=== PATIENT | female | born 1970 | race Caucasian/White ===

== ENCOUNTER 2021-12-22 15:23 | Inpatient (IN) | payer OTHER ==
--- OUTSIDE RECORDS SUMMARY | 2021-12-22 15:27 | XMS REPORT | Continuity of Care Document ---
:1970 Author Organization [facility] t Address [address] [place] [address] Care Team Providers Name Role Phone Bal Primary Care Physician MYRA Attending Clinician Unavailable Jonathan CHANDRA Attending Clinician Unavailable ADAMS RENTERIA Attending Clinician Unavailable [email or web address] Attending Clinician Unavailable Jazmine Thao Attending Clinician [phone] [email or web address] Admitting Clinician Unavailable Payers Payer Name Policy Type Policy Number Effective Date Expiration Date S ourbeena [employer] CHOICE POS [id number] 2000 00:00:00 II [employer]ET[employer] - CHOICE [id number] 2000 00:00:00 (POS II) GAMUNEX COPAY [id number] PROGRAM Problems Condition Condition Condition Status Onset Resolution Last Treating Co mments Source Name Details Category Date Date Treatment Clinician Date 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 Family History Family Member Diagnosis Comments Start Date Stop Date Source Natural brother Rheumatologic disease [facility] Natural brother No Known Problems [facility] Natural father Diabetes type II Meth [facility] Natural father Hyperlipidemia [facility] father Hypertension [facility] Natural mother Hypothyroidism [facility] mother Polymyositis [facility] Social History Social Habit Start Date Stop Date Quantity Comments Source Exposure to Not sure [facility] SARS-CoV-2 (event) Alcohol intake 2017-01-23 2017-01-23 Current drinker [facility] 00:00:00 00:00:00 [facility] Hospital (finding) Tobacco use and 2017-01-23 2017-01-23 Never used [facility] 00:[facility]00 Hospital Alcohol Comment 2016-10-21 2016-10-21 [facility] 00:[facility]:00 [facility]00 Hospital Sex Assigned At [birth year] [facility] 00:00:00 00:00:00 Smoking Status Start Date Stop Date Source Tobacco smoking consumption unknown [facility] smoker [facility] Medications Ordered Filled Start Stop Current Ordering Indication Dosage Frequency Signature Comments Components Source Medication Medication Date Date Medication? Clinician (SIG) Name Name escitalopra 2020- Yes 10mg QD Take 10 mg UT m (Lexapro) 7-25 by mouth 1 He alth 10 MG 00:00: (one) time tablet 00 each day. escitalopra 2020-0 Yes 10mg QD Take 10 mg UT m (Lexapro) 7-25 by mouth 1 He alth 10 MG 00:00: (one) time tablet 00 each day. escitalopra 2021-0 Yes 10mg QD Take 10 mg UT m (Lexapro) 7-25 by mouth 1 He alth 10 MG 00:00: (one) time tablet 00 each day. omeprazole 2020-0 Yes 20mg Q.5D Take 20 mg U T (PriLOSEC) 6-04 by mouth [address] [facility] [address] 00:00: (two) capsule 00 times a day. omeprazole 2020-0 Yes 20mg Q.5D Take 20 mg U T (PriLOSEC) 6-04 by mouth 2 [facility] l[facility] [address] 00:00: (two) capsule 00 times a day. omeprazole 2020-0 Yes 20mg Q.5D Take 20 mg U T (PriLOSEC) 6-04 by mouth [address] [facility]a l[facility] [address] 00:00: (two) capsule 00 times a day. EPINEPHrine 2020-0 Yes UT (Epipen) 6-03 Health 0.3 00:00: MG/0.3ML 00 injection syringe EPINEPHrine 2020-0 Yes UT (Epipen) 6-03 Health 0.3 00:00: MG/0.3ML 00 injection syringe EPINEPHrine 2020-0 Yes UT (Epipen) 6-03 Health 0.3 00:00: MG/0.3ML 00 injection syringe atenolol 2020-0 Yes 25mg QD Take 25 mg UT (Tenormin) 5-27 by mouth 1 Hea lth 25 MG 00:00: (one) time tablet 00 each day. atenolol 2020-0 Yes 25mg QD Take 25 mg UT (Tenormin) 5-27 by mouth 1 Hea lth 25 MG 00:00: (one) time tablet 00 each day. atenolol 2020-0 Yes 25mg QD Take 25 mg UT (Tenormin) 5-27 by mouth 1 Hea lth 25 MG 00:00: (one) time tablet 00 each day. ivermectin 2020-0 Yes TAKE 1 UT (Stromectol 3-12 TABLET BY [facility] ) 3 MG 00:00: MOUTH tablet 00 TWICE A WEEK FOR 8 WEEKS ivermectin 2020-0 Yes TAKE 1 UT (Stromectol 3-12 TABLET BY [facility] ) 3 MG 00:00: MOUTH tablet 00 TWICE A WEEK FOR 8 WEEKS ivermectin 2021-0 Yes TAKE 1 UT (Stromectol 3-12 TABLET BY [facility] ) 3 MG 00:00: MOUTH tablet 00 TWICE A WEEK FOR 8 WEEKS DEXILANT 60 2016-08 Yes TAKE ONE Me [facility] mg capsule 2-[address] 00:00: MOUTH Hospita 00 EVERY DAY l b complex Yes 1{tbl} QD Take 1 Meth hank vitamins (B 6-[address] COMPLEX 1) 16:29: mouth Hospit a tablet 48 daily. l folic acid Yes 1mg QD Take 1 mg Me thodi (FOLVITE) [address] MG tablet 16:29: daily. Hospit a 48 l omega Yes Take by Methodi 3-dha-epa-f 6-[address] hallie oil 16:29: Hospita (FISH OIL) 48 l 1,000 mg (120 mg-180 mg) capsule vitamin E Yes 1000U QD Take 1,000 M ethodi [address] capsule 16:29: mouth Hospita 48 daily. l melatonin 1 Yes Take by Met hodi mg tablet 6-[address] 16:29: Hospita 48 l ascorbic Yes 1000mg QD Take 1,000 M ethodi acid, 6-[address] vitamin C, 16:29: mouth Hospit a (vitamin C) 48 daily. l 1000 MG tablet TURMERIC Yes Methodi (CURCUMIN 6 st MIS) 16:29: Hospita 48 l cefTRIAXone Yes 2g QD Infuse 2 g Methodi 2 gram [address] recon soln 16:29: venous Hospi ta 48 catheter l daily. azithromyci Yes 500mg Q24H Infuse 500 Methodi n 6-[address] (ZITHROMAX) 16:29: venous Hosp pippa 500 mg/250 48 catheter l mL NS daily. M W F intravenou sly IMMUN GLOB Yes .5g/kg Infuse 0.5 Methodi G,IGG,/GLY/ 6-02 g/kg into st IGA OV50 16:29: a venous Hospi ta (IMMUNE 48 catheter l GLOBULIN, once. GAMUNEX-C,) Every 2 10 % weeks solution coenzyme 2017-0 Yes 100mg QD Take 100 Meth hank Q10 100 mg 6-[address] capsule 16:29: mouth Hospita 48 daily. l RESVERATROL 2017-0 Yes 1200mg Take 1,200 Methodi ORAL 6-[address] 16:29: mouth. Hospita 48 l doxycycline 2016-0 Yes 100mg Q.5D Take 100 M ethodi (VIBRAMYCIN 5-[address] ) 100 MG 00:00: mouth 2 Hospit a capsule 00 (two) l times a day. escitalopra Yes 20mg QD Take 20 mg Methodi m (LEXAPRO) 4-[address] 20 MG 00:00: once Hospita tablet 00 daily. l Immunizations Ordered Immunization Filled Immunization Date Status Commen ts Source Name Name Pneumococcal 2016-06-26 Completed [facility] Con[facility] 13-Valent 00:00:00 Hospi yessenia Vital Signs Vital Name Observation Time Observation Value Comments Source Systolic blood 2021-03-27 14:50:00 133 mm[Hg] [facility] pressure Diastolic blood 2021-03-27 14:50:00 87 mm[Hg] [facility] alth pressure Heart rate 2021-03-27 14:50:00 85 /min [facility]alt [facility] Body temperature 2021-03-27 14:50:00 35.72 Hiral [facility] Body weight 2021-03-27 14:50:00 65.772 kg approx 145 . Pt is [facility] in a wheelchair Procedures This patient has no known procedures. Plan of Care Planned Activity Planned Date Details Comments Source Future Scheduled Test COVID-19 VACCINE (1) [facility] [code = COVID-19 VACCINE (1)] Future Scheduled Test BREAST CANCER SCREENING [facility] [code = BREAST CANCER SCREENING] Future Scheduled Test COLONOSCOPY SCREENING [facility] [code = COLONOSCOPY SCREENING] Future Scheduled Test SHINGLES VACCINES (#1) [facility] [code = SHINGLES VACCINES (#1)] Future Scheduled Test Screening for malignant [facility] neoplasm of cervix (procedure) [code = 530859942] Future Scheduled Test INFLUENZA VACCINE [code [facility] = INFLUENZA VACCINE] Encounters Start End Encounter Admission Attending Care Care Encounter Source Date/Time Date/Time Type Type Clinicians Facility Department ID 2021-10-01 [facility] [id number] [place] 16:[facility]:28 [facility] 2021-03-25 [facility] [id number] [place] 13:38:33 [facility] 2021-09-30 2021-09-30 Nurse Omer Castillo [id number] [place] 00:00:00 00:00:00 Triage Omer Castillo [id number] [facility] MEDICAL [id number] TRACY [id number] 2021-09-24 2021-09-24 Outpatient MYRA, [facility]LA[facility] [id number] [facility] 09:41:00 12:55:00 MAYLIN 2021-09-04 2021-09-04 Office Gigi Renteria [id number] [place] 11:00:00 11:40:44 Visit Maylin Ochoa [id number] [facility] [id number] [facility] [id number] [address] 2021-08-02 2021-08-02 Outpatient GC_TNC_Cher PRIV PRIV [address] [place] [address] [facility] 03:52:00 03:52:00 ches_I [id number] Medica l 2021-08-02 2021-08-02 Outpatient Master, PRIV PRIV [id number] 00:00:00 00:00:00 Calvin Jazmine [id number] 2021-08-01 2021-08-01 Outpatient GC_TNC_Cher PRIV PRIV [facility] [id number] [facility] 04:15:00 04:15:00 ches_I [id number] Medica l 2021-03-27 2021-03-27 Office MAURISIO Renteria [id number] [place] 09:44:55 10:51:06 Visit Maylin DE [place] [id number] [facility] MEDICAL [id number] [facility] [id number] 2020-12-21 2020-12-21 Outpatient GC_TNC_Cher PRIV PRIV [address] [facility]20 [facility] 12:54:00 12:54:00 ches_I [id number] Medica l Results This patient has no known results.
[2021-12-22 16:38] LABS: Absolute Lymphocytes (CBC) 0.8 K/uL (0.7-4.9); Hematocrit 42.8 % (36.0-45.0); Lymphocytes % 14.9 % (15.3-44.8); MPV 8.7 fL (7.6-11.3); RBC Red Blood Cell Count 4.91 M/uL (3.86-4.86)
[2021-12-22] MEDS ORDERED: IBUPROFEN 200 MG TAB PO ONE ×2 (16:40→22:56)
[2021-12-22] MEDS ORDERED: IBUPROFEN 400 MG TAB ONE ×2 (16:41→22:57)
[2021-12-22 17:17] LABS: BUN Blood Urea Nitrogen 10 mg/dL (7-18); Bicarbonate 32 mmol/L (21-32); Glomerular Filtration Rate > 90 mL/min (=/>90); Glucose Level 89 mg/dL (74-106); Sodium Level 135 mmol/L (136-145)
[2021-12-22 17:20] LABS: Troponin High Sensitivity 89.9 pg/mL (<58.9)
--- NOTE | 2021-12-22 17:30 | RAD REPORT ---
EXAM DESCRIPTION: RAD - Chest Single View - 12/22/2021 5:21 pm CLINICAL HISTORY: DYSPNEA Chest pain. COMPARISON: Chest Single View dated 02/20/2017; CHEST PA AND LAT 2 VIEW dated 12/04/2014; CHEST PA AND LAT 2 VIEW dated 10/03/2013; CHEST SINGLE VIEW dated 05/01/2006 FINDINGS: Portable technique limits examination quality. The lungs are underinflated but grossly clear. The heart is normal in size. No displaced fractures. IMPRESSION: No acute intrathoracic process suspected.
--- NOTE | 2021-12-22 20:42 | RAD REPORT ---
EXAM DESCRIPTION: CT - Chest For Pe Angio - 12/22/2021 7:38 pm CLINICAL HISTORY: Chest pain. Shortness o f breath COMPARISON: <Comparisons> TECHNIQUE: CT angiogram of the pulmonary arteries was performed with MIP. All CT scans are performed using dose optimization technique as appropriate and may include automated exposure control or mA/KV adjustment according to patient size. FINDINGS: No evidence of pulmonary thromboembolism. No acute aortic finding demonstrated. Bibasilar lung opacities are present posteriorly likely representing atelectasis. No significant pericardial or pleural fluid. No concerning bony finding. IMPRESSION: No evidence of pulmonary thromboembolism. Bibasilar lung opacities are present, likely representing atelectasis. Early pneumonia in the posteri or left base not excluded.
--- NOTE | 2021-12-22 23:26 | EDPHYS ---
Physician Documentation [facility] Name: Betty Cruz Age: 51 yrs Sex: Female : 1970 Arrival Date: 12/22/2021 Time: 15:24 Bed 7 Private MD: Salomón Pruett C ED Physician Frank Pop HPI: 12/22 23:27 This 51 yrs old Female presents to ER via Wheelchair with complaints of low danelle oxygen. 19:00 3 patient was brought to the ED for generalized fatigue. She was also noted to have a kdr low oxygen saturation (70%) at home. Patient is not normally on oxygen at home. Patient also reports nausea since yesterday and increased congestion with some phlegm. She denies shortness of breath.. Onset: The symptoms/episode began/occurred yesterday. Severity of symptoms: At their worst the symptoms were mild in the emergency department the symptoms are unchanged. The patient has not experienced similar symptoms in the past. The patient has not recently seen a physician. 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 - Social history:: Smoking status: Patient/guardian denies using tobacco. ROS: 19:00 Constitutional: Negative for fever, chills, and weight loss, she has had generalized kdr fatigue low oxygen saturation at home Eyes: Negative for injury, pain, redness, and discharge, ENT: Negative for injury, pain, and discharge, Neck: Negative for injury, pain, and swelling, Cardiovascular: Negative for chest pain, palpitations, and edema, Abdomen/GI: Negative for abdominal pain, nausea, vomiting, diarrhea, and constipation, Back: Negative for injury and pain, : Negative for injury, bleeding, discharge, and swelling, MS/Extremity: Negative for injury and deformity, Skin: Negative for injury, rash, and discoloration, Neuro: Negative for headache, weakness, numbness, tingling, and seizure activity. Psych: Negative for depression, anxiety, suicide ideation, homicidal ideation, and hallucinations, Allergy/Immunology: Negative for hives, rash, and allergies, Endocrine: Negative for neck swelling, polydipsia, polyuria, polyphagia, and marked weight changes, Hematologic/Lymphatic: Negative for swollen nodes, abnormal bleeding, and unusual bruising. 19:00 Respiratory: Positive for shortness of breath, Low oxygen saturation (78%) at home. Exam: 19:00 Constitutional: This is a well developed, well nourished patient who is awake, alert, kdr and in no acute distress. Head/Face: Normocephalic, atraumatic. Eyes: Pupils equal round and reactive to light, extra-ocular motions intact. Lids and lashes normal. Conjunctiva and sclera are non-icteric and not injected. Cornea within normal limits. Periorbital areas with no swelling, redness, or edema. Neck: Trachea midline, no thyromegaly or masses palpated, and no cervical lymphadenopathy. Supple, full range of motion without nuchal rigidity, or vertebral point tenderness. No Meningismus. Chest/axilla: Normal chest wall appearance and motion. Nontender with no deformity. No lesions are appreciated. Respiratory: Lungs have equal breath sounds bilaterally, clear to auscultation and percussion. No rales, rhonchi or wheezes noted. No increased work of breathing, no retractions or nasal flaring. Abdomen/GI: Soft, non-tender, with normal bowel sounds. No distension or tympany. No guarding or rebound. No evidence of tenderness throughout. Back: No spinal tenderness. No costovertebral tenderness. Full range of motion. Skin: Warm, dry with normal turgor. Normal color with no rashes, no lesions, and no evidence of cellulitis. MS/ Extremity: Pulses equal, no cyanosis. Neurovascular intact. Full, normal range of motion. Neuro: Awake and alert, GCS 15, oriented to person, place, time, and situation. Cranial nerves II-XII grossly intact. Motor strength 5/5 in all extremities. Sensory grossly intact. Cerebellar exam normal. Normal gait. Psych: Awake, alert, with orientation to person, place and time. Behavior, mood, and affect are within normal limits. 19:00 Cardiovascular: Rate: tachycardic, Rhythm: regular, Pulses: no pulse deficits are appreciated. 23:44 ECG was reviewed by the Attending Physician. [facility] 12/23 05:44 ECG was reviewed by the Attending Physician. [facility] Vital Signs: 12/22 15:32 Pulse 113; Pulse Ox 89% on R/A; aa5 15:36 BP 102 / 63; Pulse 112; Resp 26 S; Temp 97.7(A); Pulse Ox 98% on 3 lpm NC; aa5 16:25 BP 101 / 60; Pulse 117; Resp 34 S; Pulse Ox 25% on R/A; jd3 17:22 BP 106 / 84; Pulse 110; Resp 30 S; Pulse Ox 100% on R/A; jd3 18:04 BP 95 / 69; Pulse 108; Resp 32 S; Pulse Ox 99% on 3 lpm NC; jd3 19:13 BP 105 / 49; Pulse 108; Resp 31; Pulse Ox 100% ; ab2 20:30 BP 244 / 209; Pulse 110; Resp 34; Pulse Ox 100% on 3 lpm NC; al4 20:50 BP 106 / 72 (man/); al4 20:55 BP 104 / 74 (man/); al4 22:48 BP 107 / 78; Pulse 116; Resp 35; Pulse Ox 100% 3 lpm ; al4 23:30 BP 105 / 78; Pulse 111; Resp 33; Pulse Ox 99% on 3 lpm NC; al4 12/23 00:00 Weight 58.97 kg (R); al4 00:30 BP 104 / 77; Pulse 110; Resp 35; Pulse Ox 96% on 3 lpm NC; al4 01:30 BP 106 / 70; Pulse 91; Resp 25; Pulse Ox 98% on 3 lpm NC; al4 12/22 20:50 done by PADDY Varela al4 20:55 done by PADDY Varela al4 MDM: 19:00 Data reviewed: vital signs, nurses notes, lab test result(s), radiologic studies. kdr Counseling: I had a detailed discussion with the patient and/or guardian regarding: the historical points, exam findings, and any diagnostic results supporting the discharge/admit diagnosis, lab results, radiology results. 19:24 Patient medically screened. danelle 12/22 16:00 Order name: Basic Metabolic Panel; Complete Time: 17:22 kdr 12/22 16:00 Order name: CBC with Diff; Complete Time: 17:07 kdr 12/22 16:00 Order name: Troponin HS; Complete Time: 17:22 kdr 12/22 16:05 Order name: D-Dimer; Complete Time: 17:07 kdr 12/22 23:24 Order name: Lactate; Complete Time: 04:02 danelle 12/22 23:24 Order name: Blood Culture Adult (2) [facility] 12/22 23:27 Order name: COVID-19/FLU A+B (Document "Date of Onset" if Symptomatic); Complete Time: danelle 04:02 12/23 03:56 Order name: CBC with Automated Diff; Complete Time: 04:02 EDIL 12/23 04:12 Order name: Basic Metabolic Panel; Complete Time: 04:54 EDIL 12/23 04:12 Order name: NT PRO-BNP; Complete Time: 04:54 EDMS 12/23 04:12 Order name: Troponin High Sensitivity; Complete Time: 04:54 EDIL 12/23 11:56 Order name: Liver (Hepatic) Function EDIL 12/23 11:56 Order name: Troponin High Sensitivity EDIL 12/23 11:56 Order name: Lipid Profile EDIL 12/22 16:00 Order name: XRAY Chest (1 view); Complete Time: 22:44 kdr 12/22 16:00 Order name: EKG; Complete Time: 16:01 kdr 12/22 16:00 Order name: Cardiac monitoring; Complete Time: 16:04 kdr 12/22 17:21 Order name: CT Chest For PE Angio; Complete Time: 22:44 kdr 12/22 23:38 Order name: CONS Physician Consult EDIL 12/22 23:38 Order name: CONS Physician Consult EDIL 12/23 04:54 Order name: EKG; Complete Time: 04:55 [facility] 12/23 11:56 Order name: Thyroid Stimulating Hormone EDIL 12/22 16:00 Order name: EKG - Nurse/Tech; Complete Time: 16:03 kdr 12/22 16:00 Order name: IV Saline Lock; Complete Time: 16:52 kdr 12/22 16:00 Order name: Labs collected and sent; Complete Time: 16:52 kdr 12/22 16:00 Order name: O2 Per Protocol; Complete Time: 16:03 kdr 12/22 16:00 Order name: O2 Sat Monitoring; Complete Time: 16:03 kdr 12/22 16:42 Order name: Labs - recollect needed: recollect green top; Complete Time: 16:52 eb 12/23 04:54 Order name: EKG - Nurse/Tech; Complete Time: 05:57 [facility] EC:44 Rate is 113 beats/min. Rhythm is regular. QRS [place] is Normal. NH interval is normal. danelle QRS interval is normal. QT interval is normal. No Q waves. T waves are Normal. ST Segment is depressed in leads II, III, aVF, V3, V4, V5, V6. Clinical impression: Sinus tachycardia. Interpreted by me. Reviewed by me. 12/23 05:44 Rate is 100 beats/min. Rhythm is regular. QRS [place] is Normal. NH interval is normal. QT danelle interval is normal. No Q waves. T waves are Normal. ST Segment is depressed in leads II, III, aVF, V3, V4, V5, V6. Clinical impression: Cardiac ischemia. Administered Medications: 12/22 16:53 Drug: Ibuprofen 600 mg Route: G-Tube; jd3 23:04 Drug: Motrin (ibuprofen) 600 mg Route: G-Tube; al4 12/23 00:00 Follow up: Response: No adverse reaction al4 00:21 Drug: Lovenox (enoxaparin) 1 mg/kg {Note: MD Verbal Ordered 60mg dose .} Route: Sub-Q; al4 Site: right lower abdomen; 00:56 Follow up: Response: No adverse reaction al4 00:23 Drug: Aspirin 81 mg Route: G-Tube; al4 00:56 Follow up: Response: No adverse reaction al4 00:23 Drug: Lopressor (metoprolol TARTRATE)) 25 mg Route: G-Tube; al4 00:56 Follow up: Response: No adverse reaction al4 01:48 Drug: Zosyn (piperacillin-tazobactam) 3.375 grams Route: IVPB; Infused Over: 60 mins; al4 Site: right hand; 03:00 Follow up: Response: No adverse reaction; IV Status: Completed infusion; IV Intake: al4 100ml 06:20 Drug: PlaVIX (clopidogrel) 150 mg Route: PO; al4 06:57 Follow up: Response: No adverse reaction al4 07:02 Drug: NS 0.9% 500 ml {Note: rate and amount verbally clarified with Dr. Pop.} al4 Route: IV; Rate: per protocol; Site: right hand; Disposition Summary: 12/22/21 23:25 Hospitalization Ordered Hospitalization Status: Observation danelle Provider: Salomón Pruett danelle Condition: Fair danelle Problem: new danelle Symptoms: have improved danelle Bed/Room Type: Standard danelle Location: Telemetry/MedSurg (observation)(12/23/21 11:50) Room Assignment: [facility](12/23/21 11:50) Diagnosis - Hypoxemia danelle - Tachycardia, unspecified danelle - Weakness danelle - Non ST elevation NM danelle Forms: - Medication Reconciliation Form danelle - SBAR form danelle Signatures: Dispatcher [employer] EDFrank Mina MD MD cha Rittger, Kevin, MD MD [facility]ene Divine James RN RN aa5 Desiree Lopez RN RN ss Rick Flaherty FNP-C [employer]PLICATIONS SALES REPRESENTATIVE-Cla1 Muriel Painter RN RN Kareem Beaver RN RN jMarisela Gómez Alexis al4 Corrections: (The following items were deleted from the chart) 12/22 15:56 15:54 PMHx: WPW; aa5 aa5 12/23 00:11 12/22 23:25 Telemetry/MedSurg (observation) danelle cg 12/23 00:11 12/22 23:25 danelle cg 12/23 11:50 00:11 [facility] ER HOLD cg ss 11:50 00:11 ERHOLD- cg ss
--- NOTE | 2021-12-22 23:26 | ER ---
Nurse's Notes [facility] Name: Betty Cruz Age: 51 yrs Sex: Female : 1970 Arrival Date: 12/22/2021 Time: 15:24 Bed 7 Private MD: Salomón Pruett C Diagnosis: Hypoxemia;Tachycardia, unspecified;Weakness;Non ST elevation AK Presentation: 12/22 15:32 Chief complaint: Pt's states "her oxygen has been low today and we called Dr. lencho Pruett and he said to bring her here". Pt reports lowest oxygen sat at home was 78%. Pt only reports nausea since yesterday and phlegm last night. Denies SOB. 15:32 Coronavirus screen: At this time, the client does not indicate any symptoms associated aa5 with coronavirus-19. Ebola Screen: No symptoms or risks identified at this time. Initial Sepsis Screen: Does the patient meet any 2 criteria? RR > 20 per min. HR > 90 bpm. Does the patient have a suspected source of infection? No. Patient's initial sepsis screen is negative. Risk Assessment: Do you want to hurt yourself or someone else? Patient reports no desire to harm self or others. Onset of symptoms was 2021. 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 - Social history:: Smoking status: Patient/guardian denies using tobacco. Screenin:02 Abuse screen: Denies threats or abuse. Nutritional screening: No deficits noted. jd3 Tuberculosis screening: No symptoms or risk factors identified. Fall Risk Ambulatory Aid- None/Bed Rest/Nurse Assist (0 pts). Gait- Normal/Bed Rest/Wheelchair (0 pts) Mental Status- Oriented to own ability (0 pts). Total Onofre Fall Scale indicates No Risk (0-24 pts). Assessment: 15:57 General: Appears comfortable, Behavior is calm, cooperative, appropriate for age. Pain: jd3 Denies pain. Neuro: Level of Consciousness is awake, alert, Oriented to person, place, time, situation, Appropriate for age pt with neurologic disease that has the pt paralyzed. pt uses eye tracking computer program to speak.. Cardiovascular: Heart tones S1 S2 present Capillary refill < 3 seconds Patient's skin is warm and dry. Rhythm is sinus tachycardia. Respiratory: Reports cough that is productive, Airway is patent Respiratory effort is even, unlabored, Respiratory pattern is regular, symmetrical. GI: Abdomen is round non-distended, Abd is soft and non tender X 4 quads. Reports nausea. : No signs and/or symptoms were reported regarding the genitourinary system. EENT: No signs and/or symptoms were reported regarding the EENT system. Derm: Skin is intact, Skin is dry, Skin is normal, Skin temperature is warm. Musculoskeletal: No signs and/or symptoms reported regarding the musculoskeletal system. 16:24 Reassessment: Patient appears in no apparent distress at this time. No changes from jd3 previously documented assessment. Patient and/or family updated on plan of care and expected duration. Pain level reassessed. Patient is alert, oriented x 3, equal unlabored respirations, skin warm/dry/pink. 17:22 Reassessment: Patient appears in no apparent distress at this time. No changes from jd3 previously documented assessment. Patient and/or family updated on plan of care and expected duration. Pain level reassessed. Patient is alert, oriented x 3, equal unlabored respirations, skin warm/dry/pink. 18:03 Reassessment: Patient appears in no apparent distress at this time. No changes from jd3 previously documented assessment. Patient and/or family updated on plan of care and expected duration. Pain level reassessed. Patient is alert, oriented x 3, equal unlabored respirations, skin warm/dry/pink. 19:27 Reassessment: patient gone to CT. al4 19:45 General: Appears in no apparent distress. comfortable, Behavior is calm, cooperative, al4 patient has neurological disease that leaves patient paralyzed. patient uses eye tracking computer system to communicate.. Pain: Complains of pain in head. Pain: Quality of pain is described as throbbing. Neuro: Level of Consciousness is awake, alert, Oriented to person, place, time, situation. Cardiovascular: Heart tones present Patient's skin is warm and dry. Respiratory: Airway is patent Respiratory effort is unlabored, Respiratory pattern is regular. 19:59 Reassessment: patient communicates by a screen - patient stated she is relaxed at this al4 time and that the CT exam went smoothly. patient has 2 visitors in the room. 20:30 Reassessment: Patient appears in no apparent distress at this time. Patient states "I al4 dont feel bad at all" by communication through the computer. 22:30 Reassessment: Patient appears in no apparent distress at this time. Patient is alert, al4 oriented x 3, equal unlabored respirations, skin warm/dry/pink. Patient c/o headache. notified, Motrin 600 mg ordered.. 23:30 Reassessment: Patient appears in no apparent distress at this time. al4 12/23 00:09 Reassessment: Nadiya from lab is coming to draw blood cultures before antibiotic al4 administration. 00:30 Reassessment: MD gave permission for patient to take omeprazole 20 mg from home. al4 00:30 Reassessment: Patient appears in no apparent distress at this time. Patient is alert, al4 oriented x 3, equal unlabored respirations, skin warm/dry/pink. 00:55 Reassessment: RN called Nadiya from lab again to come draw blood cultures before al4 antibiotic administration. 00:55 Reassessment: Patient appears in no apparent distress at this time. Patient denies pain al4 at this time. 01:30 Reassessment: Patient appears in no apparent distress at this time. Patient denies pain al4 at this time. 05:45 Reassessment: Dr. Pop states okay to crush and give plavix in peg tube. al4 06:00 Reassessment: Patient appears in no apparent distress at this time. al4 Vital Signs: 05 15:32 Pulse 113; Pulse Ox 89% on R/A; aa5 15:36 BP 102 / 63; Pulse 112; Resp 26 S; Temp 97.7(A); Pulse Ox 98% on 3 lpm NC; aa5 16:25 BP 101 / 60; Pulse 117; Resp 34 S; Pulse Ox 25% on R/A; jd3 17:22 BP 106 / 84; Pulse 110; Resp 30 S; Pulse Ox 100% on R/A; jd3 18:04 BP 95 / 69; Pulse 108; Resp 32 S; Pulse Ox 99% on 3 lpm NC; jd3 19:13 BP 105 / 49; Pulse 108; Resp 31; Pulse Ox 100% ; ab2 20:30 BP 244 / 209; Pulse 110; Resp 34; Pulse Ox 100% on 3 lpm NC; al4 20:50 BP 106 / 72 (man/); al4 20:55 BP 104 / 74 (man/); al4 22:48 BP 107 / 78; Pulse 116; Resp 35; Pulse Ox 100% 3 lpm ; al4 23:30 BP 105 / 78; Pulse 111; Resp 33; Pulse Ox 99% on 3 lpm NC; al4 05 00:00 Weight 58.97 kg (R); al4 00:30 BP 104 / 77; Pulse 110; Resp 35; Pulse Ox 96% on 3 lpm NC; al4 01:30 BP 106 / 70; Pulse 91; Resp 25; Pulse Ox 98% on 3 lpm NC; al4 12/22 20:50 done by ERT Avery al4 20:55 done by ERT Avery al4 ED Course: 15:24 Patient arrived in ED. am2 15:25 Salomón Pruett MD is Private Physician. am2 15:32 Arm band placed on. aa5 15:34 Patient placed in an exam room, on a stretcher. aa5 15:48 Tyrone Noel MD is Attending Physician. kdr 15:54 Triage completed. aa5 15:57 Kareem Marcelo, RN is Primary Nurse. jd3 16:02 Patient has correct armband on for positive identification. Call light in reach. Adult jd3 w/ patient. pt remains in personal wheelchair at this time. ekg monitor tech on. Pulse ox on. NIBP on. 16:16 EKG done, by ED staff, reviewed by Tyrone Noel MD. jd3 16:45 Inserted saline lock: 24 gauge in right hand, using aseptic technique. Blood collected. jd3 placed by [employer] tech. 17:23 XRAY Chest (1 view) In Process Unspecified. EDMS 19:13 Accessed peripheral vein via ultrasound, utilizing dynamic ultrasound technique using jd3 Clean \\T\\ dry. Dressing intact. Good blood return. Flushes easily. 20 G right AC. 19:23 Attending Physician role handed off by Tyrone Noel MD danelle 19:23 Frank Pop MD is Attending Physician. danelle 19:39 CT Chest For PE Angio In Process Unspecified. EDMS 23:00 Warm blanket given. al4 23:25 Saolmón Pruett MD is Hospitalizing Provider. [facility] 12/23 00:39 No provider procedures requiring assistance completed. Patient admitted, IV remains in al4 place. Administered Medications: 12/22 16:53 Drug: Ibuprofen 600 mg Route: G-Tube; jd3 23:04 Drug: Motrin (ibuprofen) 600 mg Route: G-Tube; al4 12/23 00:00 Follow up: Response: No adverse reaction al4 00:21 Drug: Lovenox (enoxaparin) 1 mg/kg {Note: MD Verbal Ordered 60mg dose .} Route: Sub-Q; al4 Site: right lower abdomen; 00:56 Follow up: Response: No adverse reaction al4 00:23 Drug: Aspirin 81 mg Route: G-Tube; al4 00:56 Follow up: Response: No adverse reaction al4 00:23 Drug: Lopressor (metoprolol TARTRATE)) 25 mg Route: G-Tube; al4 00:56 Follow up: Response: No adverse reaction al4 01:48 Drug: Zosyn (piperacillin-tazobactam) 3.375 grams Route: IVPB; Infused Over: 60 mins; al4 Site: right hand; 03:00 Follow up: Response: No adverse reaction; IV Status: Completed infusion; IV Intake: al4 100ml 06:20 Drug: PlaVIX (clopidogrel) 150 mg Route: PO; al4 06:57 Follow up: Response: No adverse reaction al4 07:02 Drug: NS 0.9% 500 ml {Note: rate and amount verbally clarified with Dr. Pop.} al4 Route: IV; Rate: per protocol; Site: right hand; Intake: 03:00 IV: 100ml; Total: 100ml. al4 Outcome: 12/22 23:25 Decision to Hospitalize by Provider. [facility] 12/23 00:39 Admitted to ER Hold. Please see [facility] for further documentation. al4 Condition: stable Discharge instructions given to patient, family, Instructed on the need for admit, Demonstrated understanding of instructions. 13:14 Patient left the ED. eb Signatures: Dispatcher [employer] Frank Bailey MD MD cha Rittger, Kevin, MD MD kdr Calderon, Audri RN RN aa5 Maura Gutiérrez am2 Kareem Marcelo, RN RN [email or web address] Marisela Harding Alexis al4 Cain Wallace ab2 Corrections: (The following items were deleted from the chart) 12/22 15:56 15:54 PMHx: WPW; aa5 aa5 20:01 19:59 Reassessment: patient communicates by a screen - patient stated she is relaxed at al4 this time and that the CT exam went smoothly. al4 23:15 22:30 Reassessment: Patient appears in no apparent distress at this time. Patient is al4 alert, oriented x 3, equal unlabored respirations, skin warm/dry/pink. al4 23:15 22:48 BP 107 / 78; Pulse 16bpm; Resp 35bpm; Pulse Ox 100% 3 lpm; al4 al4 12/23 00:35 00:23 Lopressor (metoprolol TARTRATE)) 25 mg PO al4 al4 00:43 12/22 19:45 General: Appears in no apparent distress. comfortable, Behavior is calm, al4 cooperative, al4 12/23 00:55 00:09 Reassessment: lab is coming to draw blood cultures before antibiotic al4 administration al4 04:31 12/22 19:45 Cardiovascular: Patient's skin is warm and dry. al4 al4
[2021-12-23] MEDS ORDERED: METOPROLOL TAR 25 MG TAB ONE (00:07)
[2021-12-23] MEDS ORDERED: ASPIRIN 81 MG CHEWABLE TABLET ONE (00:07)
[2021-12-23] MEDS ORDERED: PIPERACIL/TAZO 3.375 GM VIAL IV ONE ×2 (00:07→09:21)
[2021-12-23] MEDS ORDERED: ENOXAPARIN 60 MG/0.6 ML SQ ONE ×2 (00:08→09:21)
[2021-12-23] MEDS ORDERED: NA CHLORIDE 0.9% 100 ML IV ONE ×2 (00:08→09:20)
[2021-12-23] MEDS ORDERED: ALBUTEROL 2.5 MG/3 ML NEB SOL NEB PRN (01:21)
[2021-12-23] MEDS ORDERED: ACETAMINOPHEN 325 MG TABLET PO PRN (01:21)
[2021-12-23] MEDS ORDERED: IPRATROPIUM BROM 0.5MG/2.5ML NEB PRN (01:21)
[2021-12-23] MEDS ORDERED: NA CHLORIDE 0.9% 1,000 ML IV SCH (01:21)
[2021-12-23 01:30] LABS: SARS-COV-2 RT PCR NEGATIVE (NEGATIVE)
[2021-12-23] MEDS ORDERED: NA CHLORIDE 0.9% 1,000 ML ONE (01:30)
[2021-12-23] MEDS: PIPER TAZO 3.375 GM in NA CHLORIDE 0.9% 100 ML IV SCH ×3 (01:50→16:51)
[2021-12-23 02:05] VITALS: BMI 21.6
[2021-12-23 03:54] LABS: Hematocrit 37.5 % (36.0-45.0); Lymphocytes % 19.7 % (15.3-44.8); MPV 8.6 fL (7.6-11.3); RBC Red Blood Cell Count 4.43 M/uL (3.86-4.86)
[2021-12-23 04:10] LABS: BUN Blood Urea Nitrogen 9 mg/dL (7-18); Bicarbonate 33 mmol/L (21-32); Glomerular Filtration Rate > 90 mL/min (=/>90); Glucose Level 94 mg/dL (74-106); NT PRO-BNP 110 pg/mL (<125); Sodium Level 136 mmol/L (136-145)
[2021-12-23 04:11] LABS: Potassium 3.7 mmol/L (3.5-5.1)
[2021-12-23] MEDS: NA CHLORIDE 0.9% 1,000 ML IV SCH (05:15)
[2021-12-23] MEDS ORDERED: CLOPIDOGREL 75 MG TABLET ONE (06:18)
[2021-12-23] MEDS ORDERED: atenoloL 50 MG TAB ONE (06:18)
[2021-12-23] MEDS: atenoloL 50 MG TAB PO SCH (06:38)
[2021-12-23] MEDS ORDERED: NA CHLORIDE 0.9% 500 ML ONE (06:45)
[2021-12-23] MEDS: ONDANSETRON 4 MG/2 ML VIAL IV PRN ×2 (08:10→13:47)
[2021-12-23] MEDS ORDERED: ONDANSETRON 4 MG/2 ML VIAL ONE (08:43)
[2021-12-23] MEDS: FAMOTIDINE 20 MG/2 ML VIAL IV SCH ×2 (09:00→20:16)
[2021-12-23] MEDS: ENOXAPARIN 60 MG/0.6 ML SQ SCH ×2 (09:00→20:15)
[2021-12-23] MEDS: ASPIRIN 81 MG CHEWABLE TABLET PO SCH (09:00)
[2021-12-23] MEDS ORDERED: CLOPIDOGREL 75 MG TABLET PO SCH (09:00)
[2021-12-23] MEDS ORDERED: FAMOTIDINE 20 MG/2 ML VIAL IV ONE (09:20)
[2021-12-23 11:54] LABS: Albumin 2.9 g/dL (3.4-5.0); Bilirubin Direct 0.1 mg/dL (0-0.2); Bilirubin Total 0.3 mg/dL (0.2-1.0); Protein, Total 7.3 g/dL (6.4-8.2); Thyroid Stimulating Hormone 1.27 uIU/mL (0.360-3.740)
[2021-12-23 11:56] LABS: Troponin High Sensitivity 111.5 pg/mL (<58.9)
--- NOTE | 2021-12-23 12:16 | P.CNS ---
Date of Consult: 12/23/21 Reason for Consult: Hypoxemia Chief Complaint: Hypoxemia History of Present Illness: Patient is 51 years of age cannot communicate unable to walk to see CDIP/father at the bedside currently her O2 sats were low currently stable no new complaints hemodynamically stable vital signs satisfactory Allergies No Known Allergies Allergy (Unverified 02/21/17 02:26) Home Medications: Atenolol [Tenormin] 25 mg PO BID 12/23/21 Cholecalciferol (Vitamin D3) [Vitamin D3] 125 mcg PO DAILY 12/23/21 Escitalopram Oxalate 10 mg PO DAILY 12/23/21 Famotidine [Pepcid*] 20 mg PO DAILY PRN 12/23/21 Fexofenadine HCl [Noelle Allergy] 60 mg PO DAILY 12/23/21 L.acidoph,Paracasei, B.lactis [Probiotic] 1 cap PO DAILY 12/23/21 Omeprazole 20 mg PO DAILY 12/23/21 - Past Medical/Surgical History Diabetic: No -: CIDP -: WPW - vdgyv-hckgczpwt-xmfsi syndrome -: neuro lyme disease 2017 -: [place] fever 2017 -: PEG tube -: C section x 2 -: sinus surgery -: gastric sleeve - Family History Mother Medical History: Heart disease Father Medical History: Hypertension, Diabetes - Social History Place of Residence: Home Review of Systems is unable to be obtained Physical Examination Temp Pulse Resp BP Pulse Ox 98.3 F 97 H 22 H 100/58 L 94 12/23/21 08:00 12/23/21 08:00 12/23/21 08:00 12/23/21 08:00 12/23/21 08:00 General: Alert, Other (Unable to communicate) Respiratory: Clear to auscultation bilaterally, Diminished Cardiovascular: No edema, Regular rate/rhythm Laboratory Data (last 24 hrs) 12/22/21 16:51: Sodium 135 L, Potassium 4.0, BUN 10, Creatinine 0.23 L, Glucose 89 12/22/21 16:30: WBC 5.3, Hgb 13.7, Hct 42.8, Plt Count 344 - Problems (1) Respiratory failure with hypercapnia Current Visit: Yes Status: Acute Plan: Patient most likely has chronic respiratory failure from neuromuscular disorder and will benefit from a noninvasive ventilator BiPAP deemed insufficient for this condition we will try BiPAP when the patient is in the hospital no evidence of sepsis troponins elevated echocardiogram is normal can DC antibiotics for now urinalysis ordered repeat ABGs today Qualifiers: Chronicity: chronic Qualified Code(s): J96.12 - Chronic respiratory failure with hypercapnia
[2021-12-23] MEDS ORDERED: PROMETHAZINE INJ 25 MG/ML AMP IV PRN (16:57)
[2021-12-23 18:05] LABS: Arterial Blood Carboxyhemoglob 1.8 % (0-1.5); Blood Gas Oxyhemoglobin 75.4 % (94-97); Blood O2 Saturation 77.7 % (92-98.5)
[2021-12-23 18:16] LABS: Blood Gas Oxyhemoglobin 78.8 % (94-97); Blood O2 Saturation 81.4 % (92-98.5)
[2021-12-24] MEDS: PIPER TAZO 3.375 GM in NA CHLORIDE 0.9% 100 ML IV SCH ×2 (00:08→09:38)
--- NOTE | 2021-12-24 01:52 | CON ---
Date of Consultation: 12/23/[address] Pruett on 12/22/2021. I saw the patient on 12/23/2021. Reason For Consultation: Shortness of breath, pneumonia and elevated troponin. Ms. Cruz also has a history of WPW. History Of Present Illness: Ms. Cruz is 51. She has a history of CIDP, WPW, has had a PEG tube sin ce 2018, came in with overall weakness, short of breath. Apparently, there is a possibility of pneum onia that she is being treated for with antibiotics. Denied any chest pain, nausea, vomiting, diapho resis, PND, orthopnea, pedal edema, palpitations, or syncope. Her WPW had been known for many years but has not been treated. She has never had an ablation. She takes atenolol to prevent tachycardia. Allergies: NONE. Review of Systems: Negative. Social History: Negative. Family History: Noncontributory. Physical Examination: Vital Signs: When I saw her, her blood pressure was 86/63. General: She was rather somnolent and lethargic in some ways, but awake when spoken to. She was in sinus rhythm. HEENT: Negative. Neck: Supple. No bruit. Chest: Reveals some crackles at both bases. Cardiac: Reveals a regular rhythm and rate. No murmurs, gallops, or rubs. Abdomen: Benign. Extremities: Reveal no clubbing, cyanosis, or edema. Diagnostic Data: As stated earlier. Impression And Plan: 1.Shortness of breath, probably secondary to her pneumonia. I recommended a 2D echocardiogram. 2.Whevf-Lughoyggl-Ngbco, stable. She is definitely not a candidate for atenolol right now. She nee ds to be hydrated and treated with antibiotics. I am not concerned about the troponin. I think it i s a more demand ischemia, but we will see what her echo shows and we will discuss the case further wi Dr. Pruett. FIDE/MODL Voice ID: [id number] Report ID: [id number]
[2021-12-24] MEDS: atenoloL 50 MG TAB PO SCH (06:12)
--- NOTE | 2021-12-24 07:38 | ECHO ---
HEIGHT: 5 ft 5 in WEIGHT: 130 lb 0 oz DATE OF STUDY: 12/23/[address]: Bobby Gorman MD 2-DIMENSIONAL: YES M.MODE: YES DOPPLER: YES COLOR FLOW: YES TDS: NO PORTABLE: YES DEFINITY: NO BUBBLE STUDY: NO DIAGNOSIS: CHEST PAIN CARDIAC HISTORY: CATHERIZATION: SURGERY: PROSTHETIC VALVE: PACEMAKER: MEASUREMENTS (cm) DIASTOLIC (NORMALS) SYSTOLIC (NORMALS) IVSd 1.0 (0.6-1.2) LA Diam 3.1 (1.9-4.0) LVEF 60% LVIDd 3.5 (3.5-5.7) LVIDs 1.9 (2.0-3.5) %FS 46% LVPWd 1.0 (0.6-1.2) Ao Diam 2.5 (2.0-3.7) 2 DIMENSIONAL ASSESSMENT: RIGHT ATRIUM: NORMAL LEFT ATRIUM: NORMAL RIGHT VENTRICLE: NORMAL LEFT VENTRICLE: NORMAL TRICUSPID VALVE: MILD TRICUSPID REGURGITATION MITRAL VALVE: MILD MITRAL REGURGITATION PULMONIC VALVE: MILD PULMONIC INSUFFIECIENCY AORTIC VALVE: NORMAL PERICARDIAL EFFUSION: NONE AORTIC ROOT: NORMAL LEFT VENTRICULAR WALL MOTION: NORMAL. DOPPLER/COLOR FLOW: SEE BELOW. COMMENTS: NORMAL LEFT VENTRICULAR EJECTION FRACTION 60%. MILD MITRAL REGURGITATION, MILD TRICUSPID REGURGITATION, MILD PULMONIC INSUFFICIENCY. TECHNOLOGIST: ANDREW BOOTH
[2021-12-24] MEDS: FAMOTIDINE 20 MG/2 ML VIAL IV SCH (09:37)
[2021-12-24] MEDS: ENOXAPARIN 30 MG/0.3 ML SQ SCH (09:38)
[2021-12-24] MEDS: ASPIRIN 81 MG CHEWABLE TABLET PO SCH (09:38)
--- NOTE | 2021-12-24 10:54 | EKG ---
Test Date: 2021-12-23 Test Time: 05:30:36 Manager Fitness: PAULY MEASUREMENT RESULTS: Intervals: Rate: 100 ME: 118 QRSD: 74 QT: 370 QTc: 477 Randolph: P: 62 ME: 118 QRS: 81 T: -17 INTERPRETIVE STATEMENTS: Normal sinus rhythm T wave abnormality, consider inferior ischemia Prolonged QT Abnormal ECG Compared to ECG 12/22/2021 23:21:33 T-wave abnormality now present Prolonged QT interval now present Sinus tachycardia no longer present ST (T wave) deviation no longer present Possible ischemia still present Electronically Signed On 12-24-21 10:50:39 CDT by Bobby Gorman
[2021-12-24 11:19] LABS: Urine Appearance Clear (Clear); Urine Blood Negative (Negative); Urine Color Yellow (Yellow); Urine Glucose Negative (Negative); Urine Protein 1+ (Negative); Urine Specific Gravity >=1.030 (1.005-1.030); Urine Urobilinogen 0.2 mg/dL (0.2-1.0)
[2021-12-24 11:38] LABS: Urine Bacteria <20 /HPF (<20); Urine Microscopic Reflex ORDER UMIC; Urine Mucus 2+ /HPF (NONE SEEN); Urine RBC <5 /HPF (NONE SEEN)
[2021-12-24 11:47] LABS: Urine Bilirubin NEGATIVE (Negative)
[2021-12-24 13:27] LABS: Arterial Blood Carboxyhemoglob 1.9 % (0-1.5); Blood O2 Saturation 82.5 % (92-98.5)
[2021-12-24] MEDS: IBUPROFEN 100 MG/5 ML UCUP PO PRN ×2 (14:30→22:47)
--- NOTE | 2021-12-24 16:22 | HP ---
Date of Admission: 12/23/2021 Chief Complaint: Shortness of breath. History Of Present Illness: This is a 51-year-old very pleasant female patient who has significant neurological problems, was brought into emergency room with hypoxia and room air oxygen saturation around 82% or so as checked by the patient's yesterday when she was having some shortness of breath. The patient has not had any fever, chills, nausea, vomiting. No cough, congestion. After he checked the patient's oxygen saturation and as it reported low he contacted me and after communicating with me, he brought her to the emergency room as per my recommendation and after she was evaluated in the ER, she was admitted to the hospital. Overnight, her condition has remained stable except some sinus tachycardia and the patient did require some oxygen replacement therapy. When I saw her this morning, she was in the emergency room. Her was with her at bedside. Allergies: NO KNOWN ALLERGIES. Medications: Atenolol 25 mg 2 times a day, Benadryl 25 mg 2 times a day as needed, docusate sodium 100 mg 2 times a day, omeprazole 20 mg daily, ibuprofen 200 mg 2 times a day as needed, Zofran 4 mg every 4 hours as needed for nausea and vomiting. She also gets IVIG that is intravenous immunoglobulin therapy almost every 2 weeks and once a year she gets stem cell transplant treatment and her last stem cell transplant treatment was past week on and this was her fifth treatment in last 5 years. Review of Systems: Respiratory: As mentioned above. AUTOMATION SPECIALIST: The patient has quadriplegia and she is not able to speak, so she communicates with a special assistive device on her computer. 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 Past Surgical History: LASIK surgery, sinus surgery in 1997 and 2000, gastric sleeve surgery in 2010. Presurgery weight was 264 pounds. PEG tube placement in 2018 and it was replaced in 2021. in 2002 and 2007. Family History: Significant for father with hypertension, hyperlipidemia. Mother with polymyositis. Brother had mixed connective tissue disorder. Daughter has diabetes. Social History: Negative for smoking and alcohol use. Immunization History: The patient had her COVID-19 vaccine on October 01, 2020, October 27, 2020, and May 16, 2021. Physical Examination: Vital Signs: Her pulse rate 104, respiratory rate 21, blood pressure 109/73, oxygen saturation 99% on nasal cannula oxygen at 3 L/minute. Height 5 feet 5 inches, weight 130 pounds. General: The patient lying in bed, not in distress, lying on the left side. HEENT: Head atraumatic, normocephalic. Conjunctivae nonerythematous. Sclerae white. Mouth, no thrush or edema noted. Ears/Nose, no mass, lesion, discharge noted. Neck: Supple. No JVD, lymph nodes, bruit, thyromegaly noted. Lungs: Bilateral good equal air entry. Clear to auscultation. No rhonchi. No rales. Heart: Normal heart sounds, no murmur or gallop. Abdomen: The patient has a PEG tube placement in upper anterior abdominal wall. Surrounding skin appears normal. Soft. Bowel sounds normal. No guarding, rigidity, tenderness, distention. Extremities: No leg edema. No calf tenderness. Skin: No rash, ulcer, cellulitis. Lymphatics: No lymph node enlargement in neck, supraclavicular, infraclavicular region. Neuro: The patient has quadriplegia, which is her chronic baseline finding. Chest: Unremarkable. External Genitalia: Deferred. Rectal: Deferred. Labs: Yesterday white count 5.3, hemoglobin 13.7, platelets 344. This morning, white count 5.2, hemoglobin 12.2, platelets 297. INR 499. Yesterday, sodium 135, potassium 4, chloride 96, bicarb 32, BUN 10, creatinine 0.23, glucose 89. This morning, sodium 136, potassium 3.7, chloride 98, bicarb 33, BUN 9, creatinine 0.20, glucose 94. Her initial troponin 89.9, second troponin 103.7. Influenza A, influenza B, and COVID-19 test negative. Chest x-ray, no acute cardiopulmonary changes. CAT scan per PE protocol no evidence of pulmonary embolism, but shows bibasilar lung opacity, it could be atelectasis and need to rule out early pneumonia. Arterial blood gas done later today shows pH 7.29, pCO2 68.5, pO2 44.8, saturation 77% on room air. Impression: 1. Respiratory failure with hypoxia, with hypercapnia. 2. Rule out pneumonia. 3. Atelectasis. 4. Amyotrophic lateral sclerosis. 5. Chronic inflammatory demyelinating polyneuropathy. 6. Thoracic outlet syndrome. 7. Sinus tachycardia. 8. Sjogren syndrome. Plan: Admit the patient to hospital for further evaluation and management of this problem. The patient is appropriate for inpatient and is expected to spend 2 midnights in hospital. We will go ahead and consult Cardiology and Pulmonary Service. Echo with Doppler was ordered. The patient will have third set of cardiac enzyme along with liver function tests and thyroid tests this morning. At home, she uses PEG tube feeding and she also eats a smaller quantity by mouth but mostly she relies on the PEG tube feeding. We will go ahead and continue to utilize her PEG tube formula and start feeding at 75 cc/hour. Flush PEG tube with 50 to 100 cc every 6 hours. Keep head and chest elevated. Offload her heels. Change position every 2 hours. I did communicate with the patient's regarding advance directive and the patient is full code. We will go ahead and continue aspirin and Lovenox, and I will see her tomorrow for followup. Continue empiric antibiotics Zosyn which was started in the emergency room. Details and plan of treatment discussed with the patient's . ANTOLIN/GRAY Voice ID: [id number] NICK
[2021-12-24] MEDS: NA CHLORIDE 0.9% 1,000 ML IV SCH (17:05)
[2021-12-24] MEDS: D5 0.9 NS 1,000 ML IV SCH (21:08)
[2021-12-24] MEDS: FAMOTIDINE 20 MG TAB PO SCH (21:09)
--- NOTE | 2021-12-24 23:22 | PN ---
Date of Progress Note: 12/24/2021 Subjective: Patient was seen this morning for followup. She was lying in bed sleeping. Her was with her at bedside and reported that yesterday her nausea was not well controlled with Zofran, so Phenergan was ordered, and after she got Phenergan, her nausea problem resolved. She slept very well overnight and is not sure whether this is because she did not sleep well previous night or it is because of Phenergan or combination of both. In any case, this morning when I saw her, she was on high-flow nasal cannula oxygen, sleeping well without any respiratory distress. Objective: HEENT: Unremarkable. Lungs: Clear to auscultation. Cardiac: Heart sounds normal. Abdomen: Soft. Bowel sounds normal. No guarding, rigidity, tenderness, distention. Extremities: No leg edema. Impression: 1. Respiratory failure with hypoxia and hypercapnia. 2. Rule out pneumonia. 3. Amyotrophic lateral sclerosis. 4. Chronic inflammatory demyelinating polyneuropathy. 5. Abnormal cardiac enzymes. Plan: Patient's echo was done yesterday, result pending. Cardiology and Pulmonary consultation are appreciated. We will continue current empiric antibiotic and continue tube feeding, which was on hold last night. This morning when I saw her, nurse was advised to restart her tube feeding at 10 cc/hour and every 3 hours or so and increase rate by 10 more cc as long as she tolerates until we reach goal of 75 cc/hour. Nurse was advised to use air mattress, change position every 2 hours, and offload heels all the time to reduce any chances of decubitus ulcer as the patient is at high risk of decubitus ulcer problem because of her immobility. We will continue to follow with Dr. Gonzalez. Blood gas result was reviewed with patient's and he was informed that patient may end up needing tracheostomy tube and will continue to work with Dr. Gonzalez for his recommendation on this. ANTOLIN/MODL Voice ID: [id number] Report ID: [id number]
[2021-12-25] MEDS: ONDANSETRON 4 MG/2 ML VIAL IV PRN ×3 (03:53→18:13)
[2021-12-25] MEDS: atenoloL 50 MG TAB PO SCH (06:24)
[2021-12-25 08:39] LABS: Absolute Lymphocytes (CBC) 0.8 K/uL (0.7-4.9); Lymphocytes % 19.5 % (15.3-44.8); MPV 8.7 fL (7.6-11.3); RBC Red Blood Cell Count 3.92 M/uL (3.86-4.86)
[2021-12-25 08:42] LABS: BUN Blood Urea Nitrogen 12 mg/dL (7-18); Bicarbonate 40 mmol/L (21-32); Glomerular Filtration Rate > 90 mL/min (=/>90); Glucose Level 117 mg/dL (74-106); Magnesium 2.1 mg/dL (1.8-2.4); Potassium 3.4 mmol/L (3.5-5.1); Sodium Level 143 mmol/L (136-145)
[2021-12-25] MEDS: FAMOTIDINE 20 MG TAB PO SCH ×2 (09:31→20:17)
[2021-12-25] MEDS: ASPIRIN 81 MG CHEWABLE TABLET PO SCH (09:32)
[2021-12-25] MEDS: ENOXAPARIN 30 MG/0.3 ML SQ SCH (09:32)
[2021-12-25] MEDS: NA CHLORIDE 0.9% 250 ML IV PRN ×2 (12:30→13:41)
[2021-12-25] MEDS ORDERED: NA CHLORIDE 0.9% 500 ML IV ONE (14:33)
[2021-12-25] MEDS ORDERED: NA CHLORIDE 0.9% 1,000 ML ONE (15:05)
--- NOTE | 2021-12-25 15:20 | P.PN ---
Subjective Date of Service: 12/25/21 Chief Complaint: C resp failure Low BP tolerating BIPAP Review of Systems is unable to be obtained Physical Examination - Vital Signs Temperature: 97.8 F Blood Pressure: 89/57 Pulse: 80 Respirations: 16 Pulse Ox (%): 100 - Physical Exam General: Alert Respiratory: Clear to auscultation bilaterally, Diminished Cardiovascular: Normal S1 S2, Edema Assessment And Plan - Current Problems (Diagnosis) (1) Respiratory failure with hypercapnia Current Visit: Yes Status: Acute Plan: C resp failure sec to Neuromusclar disorder, Qualifies for O2 and NIV. Low BP fluid boluses. NE of sepesis. Cultures neg labs reviewed/ ABG ordered/ DC atenolol Qualifiers: Chronicity: chronic Qualified Code(s): J96.12 - Chronic respiratory failure with hypercapnia
[2021-12-25] MEDS: IBUPROFEN 100 MG/5 ML UCUP PO PRN (20:52)
--- NOTE | 2021-12-25 22:07 | PN ---
Date of Progress Note: 12/25/2021 Subjective: The patient was seen this morning for followup. She was sleeping. Her was with her at bedside. She had used BiPAP for about 4 to 5 hours last night. This morning when I saw her, she was on high-flow oxygen 20/70. She is intermittently getting her PEG tube feeding as she ends u p having nausea where nursing staff has to stop tube feeding, give her some Zofran, and then restart tube feeding starting at 10 cc/hour and slowly go up as she tolerates every 3 hours or so. She is no t able to sleep on air mattress, so she is on regular mattress and nursing staff is changing position every 2 hours, and reports no issues with any decubitus. Objective: Vital Signs: Reviewed. HEENT: Unremarkable. Lungs: Clear to auscultation. Heart: Sounds normal. Abdomen: Soft. Bowel sounds normal. No guarding, rigidity, tenderness, or distention. Extremities: No leg edema. Impression: 1.Chronic respiratory failure with hypoxia, with hypercapnia. 2.Amyotrophic lateral sclerosis. 3.Chronic inflammatory demyelinating polyneuropathy. 4.Sinus tachycardia. 5.Chronic nausea. Plan: We will go ahead and continue to provide tube feeding as she tolerates. Change IV fluid to D5 normal saline at 30 cc/hour since she is not getting consistent tube feeding. We will go ahead and change position every 2 hours. Nursing staff was instructed to do so. Continue DVT prophylaxis with Lovenox per order. Dr. Gonzalez stopped her antibiotic, which was Zosyn, as there is no convincing evidence of pneumonia and I agree with that. I did talk to Dr. Gonzalez today and he is making arran gements for the patient to get noninvasive ventilator and home oxygen. Once this arrangement gets co mpleted, we will be able to discharge her to go home. During the course of day today, her blood pres sure started dropping down and nurse contacted me. At that time, she was not using her BiPAP and I a dvised the nurse to make sure to put her back on BiPAP because she was also less responsive than usua l with systolic blood pressure between 80 to 90. IV fluid bolus was given 250 cc x2 and after that s he slowly started coming around with use of BiPAP, and nurse was advised to let the patient and famil y know to try to use BiPAP as much as possible and she may take a break after 3 to 4 hours of use of BiPAP only for 30 minutes break or so, but otherwise needs to stay on BiPAP all the time because of h er respiratory failure problem. I will see her tomorrow for followup. ANTOLIN/MODL Voice ID: [id number] Report ID: [id number]
[2021-12-26] MEDS: ONDANSETRON 4 MG/2 ML VIAL IV PRN (02:10)
[2021-12-26] MEDS: D5 0.9 NS 1,000 ML IV SCH (05:20)
--- NOTE | 2021-12-26 08:34 | P.PN ---
Subjective Date of Service: 12/26/21 Chief Complaint: C resp failure Improving tolerating BiPAP pressures more stable Review of Systems is unable to be obtained Physical Examination - Vital Signs Temperature: 97.4 F Blood Pressure: 106/62 Pulse: 113 Respirations: 18 Pulse Ox (%): 97 - Physical Exam General: Alert Respiratory: Diminished, Friction rub Cardiovascular: Regular rate/rhythm Assessment And Plan - Current Problems (Diagnosis) (1) Respiratory failure with hypercapnia Current Visit: Yes Status: Acute Plan: Chronic respiratory failure rating BiPAP plan to discharge once noninvasive ventilator and home O2 has been set up no evidence of sepsis into the patient is able to eat and drink at home possible discharge in 1 to 2 days Qualifiers: Chronicity: chronic Qualified Code(s): J96.12 - Chronic respiratory failure with hypercapnia
[2021-12-26] MEDS ORDERED: ESCITALOPRAM 20 MG TAB PO SCH (09:00)
[2021-12-26] MEDS ORDERED: POLYETHYL GLY 3350 17 GM/DOSE PO ONE (09:02)
[2021-12-26] MEDS: IBUPROFEN 100 MG/5 ML UCUP PO PRN (10:41)
[2021-12-26] MEDS: ENOXAPARIN 30 MG/0.3 ML SQ SCH (10:43)
[2021-12-26] MEDS: ASPIRIN 81 MG CHEWABLE TABLET PO SCH (10:43)
[2021-12-26] MEDS: FAMOTIDINE 20 MG TAB PO SCH (10:53)
[2021-12-26] MEDS ORDERED: FAMOTIDINE 20 MG TAB PO PRN (11:24)
[2021-12-26 11:55] VITALS: O2SAT 100
[2021-12-26 13:17] VITALS: BP 104/51; TEMP 97.7
--- NOTE | 2021-12-27 19:24 | DS ---
Date of Discharge: 12/26/2021 Disposition: Discharged to go home. Physical Examination: HEENT: Unremarkable. Lungs: Clear to auscultation. Heart: Sounds normal. Abdomen: Soft. Bowel sounds normal. No guarding, rigidity, tenderness, distention. Extremities: No leg edema. Discharge Medications And Instructions: 1.Continue all prior home medication. 2.Check blood pressure and pulse prior to giving atenolol and if systolic blood pressure is higher t hunter 110 and pulse is higher than 110, then only give dose of atenolol. If giving atenolol does resul ts in dropping the systolic blood pressure lower than 100, next time change atenolol guideline and gi ve it only if systolic blood pressure is higher than 120. 3.Use oxygen 2 L/minute nasal cannula while not using noninvasive ventilator. 4.Use noninvasive ventilator all the time, may take 30-60 minutes breaks every 4 hours or so. Use n oninvasive ventilator all night and every time she sleep during day time. 5.Follow up at my office next week via tele visit and call office to schedule appointment. 6.Follow up with Dr. Gonzalez per his recommendation. 7.All these instructions were discussed with the patient's this morning personally by me. Hospital Course: This is a 51-year-old very pleasant female patient, who was admitted to the [facility] with shortness of breath and hypoxia problem. Please see dictated H and P for more information. T he patient's contacted me with this problem, was advised to bring patient to the emergency ro om. After she was evaluated in the ER, she was admitted to the hospital. Her COVID-19 test was nega tive. Influenza A and influenza B test was negative. Chest x-ray did not show any acute cardiopulmo nary changes. CAT scan of the chest per PE protocol was negative for pulmonary embolism, but showed some minimal bibasilar lung opacity, very likely atelectasis, but pneumonia could not be ruled out as per radiologist's report. Clinically, she does not have any pneumonia, normal white count. No feve r. Initially, she was started on empiric antibiotics Zosyn, which was subsequently discontinued by Luis Gonzalez. Cardiology consultation from Dr. Gorman was obtained Pulmonary consultation was obtain ed from Dr. Gonzalez. Her main problem during this hospitalization was respiratory failure with hypo eliot and hypercapnia. Initially, she was on nasal cannula oxygen. Subsequently, high-flow oxygen and we actually ended up requiring to use BiPAP, which in the beginning she did not tolerate well, but t hen she started getting used to it and tolerated very well. That actually has helped to improve her altered mental status, which we saw with hypoxia and hypercapnia. She was becoming very somnolent an d was becoming hypotensive also and she responded very well with the BiPAP with improvement in all th leobardo different parameters. Dr. Gonzalez made arrangements for patient to get noninvasive ventilator f or home use and oxygen per nasal cannula and Social Service was consulted. Once all arrangements com pleted, today she was discharged to go back home in stable condition. Dietitian provided feeding at 45 cc/hour using the formula that she is using at home for 22 hours out of 24 hours so the patient's and I did talk that total amount that she will need to use in 22 hours at 45 cc/hour, he will adjust the rate so that way she is not almost continuously getting the PEG tube feeding. She has land d some nausea, vomiting and required some nausea medication during this hospitalization. DVT prophyl axis was given using Lovenox. Today, she was discharged to go home in stable and improved condition with above-mentioned medication instructions. Final Diagnoses: 1.Respiratory failure, chronic, with hypoxia and hypercapnia. 2.Atelectasis, bilateral lung bases. 3.Amyotrophic lateral sclerosis. 4.Chronic inflammatory demyelinating polyneuropathy. 5.Thoracic-outlet syndrome. 6.Sinus tachycardia. 7.Sjogren syndrome. 8.Hypokalemia. Laboratory Data: Upon admission, initial arterial blood gas; pH 7.29, pCO2 68.5, pO2 44.8, and oxyge n saturation 77% on room air. We had multiple other ABGs more or less similar to this initial blood gas. Initial white count 5.3, hemoglobin 13.7, platelets 344, and last CBC yesterday, white count 3. 9, hemoglobin 11.1, platelets 257. Last chemistry yesterday, sodium 143, potassium 3.4, chloride 104 , bicarb 40, BUN 12, creatinine 0.22, glucose 117. Her last troponin was 111.5, second troponin 103. 7. TSH normal 1.27 and LDL cholesterol 141. Initial troponin 89.9. Echocardiogram shows normal eje ction fraction 60%, mild tricuspid regurgitation and pulmonary regurgitation. Her abnormal cardiac e nzyme was thought to be demand ischemia and no further intervention needed for that. ANTOLIN/MODL Voice ID: [id number] Report ID: [id number]
== END 2021-12-26 15:07 | disposition home or self-care (01) | DRG 57 ==
LOC: ER 15:23 → ERHOLD 23:53 → 2ND 12-23 13:01
PROVIDERS: ADMIT Internal Medicine; ATTEND Internal Medicine
PROC: 5A0935A Assistance with Respiratory Ventilation, Less than 24 Consecutive Hours, High Flow/Velocity Cannula (ICD-10-PCS; principal; 2021-12-23)
PROC: 5A09457 Assistance with Respiratory Ventilation, 24-96 Consecutive Hours, Continuous Positive Airway Pressure (ICD-10-PCS; 2021-12-24)
DX: G12.21 Amyotrophic lateral sclerosis (principal); J96.12 Chronic respiratory failure with hypercapnia; J98.11 Atelectasis; G61.81 Chronic inflammatory demyelinating polyneuritis; J96.11 Chronic respiratory failure with hypoxia; G54.0 Brachial plexus disorders; R00.0 Tachycardia, unspecified; M35.00 Sjogren syndrome, unspecified; E87.6 Hypokalemia; R79.89 Other specified abnormal findings of blood chemistry; R11.0 Nausea; Z98.84 Bariatric surgery status; Z20.822 Contact with and (suspected) exposure to COVID-19
CPT/HCPCS: 0240U; 36415; 71045; 71275; 80048; 80061; 80076; 81003; 81015; 82805; 82947; 83605; 83735; 83880; 84443; 84484; 85025; 85379; 87040; 93005; 93306; 94002; 94003; 94660; 94760; 96365; 96372; 99285; J1650; J2405; J2543; J2550; J3490; J7030; J7040; J7042; J7050; Q9967

== ENCOUNTER 2022-01-20 11:02 | Emergency (ER) | payer OTHER ==
--- OUTSIDE RECORDS SUMMARY | 2022-01-20 11:05 | XMS REPORT | Continuity of Care Document ---
:1970 Author Organization [facility] t Address [address] [place] [address] Care Team Providers Name Role Phone Bal EDWARDS Primary Care Physician MYRA Attending Clinician Unavailable Xu CHANDRA Attending Clinician Unavailable Jonathan CHANDRA Attending Clinician Unavailable ADAMS RENTERIA Attending Clinician Unavailable [email or web address]_I Attending Clinician Unavailable Jazmine Thao Attending Clinician [phone] [email or web address] Admitting Clinician Unavailable Payers Payer Name Policy Type Policy Number Effective Date Expiration Date S johnny [employer] CHOICE POS [id number] 2000 00:00:00 II [employer] - CHOICE [id number] 2000 00:00:00 (POS II) GAMUNEX COPAY [id number] PROGRAM Problems Condition Condition Condition Status Onset [...] Stop Date Source Natural brother Rheumatologic disease [facility] Natural brother No Known Problems [facility] Natural father Diabetes type II Meth [facility] Natural father Hyperlipidemia [facility] father Hypertension [facility] Natural mother Hypothyroidism [facility] mother Polymyositis [facility] Social History Social Habit Start Date Stop Date Quantity Comments Source Exposure to Not sure [facility] SARS-CoV-2 (event) Alcohol intake 2017-01-23 2017-01-23 Current drinker [facility] 00:00:00 00:00:00 [facility] (finding) Tobacco use and 2017-01-23 2017-01-23 Never used [facility] exposure 00:00:00 00:00:00 Hospital Alcohol Comment 2016-10-21 2016-10-21 [facility] 00:00:00 00:00:00 Hospital Sex Assigned At [birth year] [facility] 00:00:00 00:00:00 Smoking Status Start Date Stop Date Source Tobacco smoking consumption unknown [facility] Never smoker [facility] Medications Ordered Filled Start Stop [...] (one) time tablet 00 each day. escitalopra 1-0 Yes 10mg QD Take 10 mg UT m (Lexapro) 7-25 by mouth 1 He alth 10 MG 00:00: (one) time tablet 00 each day. omeprazole 1-0 Yes 20mg Q.5D Take 20 mg U T (PriLOSEC) 6-04 by mouth [address] [facility] [address] 00:00: (two) capsule 00 times a day. omeprazole 1-0 Yes 20mg Q.5D Take 20 mg U T (PriLOSEC) 6-04 by mouth [facility] [address] 00:00: (two) capsule 00 times a day. omeprazole 1-0 Yes 20mg Q.5D Take 20 mg U T (PriLOSEC) 6-04 by mouth 2 [facility] [address] 00:00: (two) capsule 00 times a day. omeprazole 1-0 Yes 20mg Q.5D Take 20 mg U [...] 0.3 00:00: MG/0.3ML 00 injection syringe atenolol 1-0 Yes 25mg QD Take 25 mg UT (Tenormin) 5-27 by mouth 1 [facility] 25 MG 00:00: (one) time tablet 00 each day. atenolol 2021-0 Yes 25mg QD Take 25 mg UT (Tenormin) 5-27 by mouth 1 [facility] 25 MG 00:00: (one) time tablet 00 each day. atenolol 2021-0 Yes 25mg QD Take 25 mg UT (Tenormin) 5-27 by mouth [address] [facility] 25 MG 00:00: (one) time tablet 00 each day. atenolol Yes 25mg QD Take 25 mg UT (Tenormin) 5-27 by mouth [address] [facility] 25 MG 00:00: (one) time tablet 00 each day. ivermectin Yes TAKE 1 UT (Stromectol 3-12 TABLET BY [facility] ) 3 MG 00:00: MOUTH tablet 00 TWICE A WEEK FOR 8 WEEKS ivermectin Yes TAKE 1 UT (Stromectol 3-12 TABLET BY [facility] ) 3 MG 00:00: MOUTH tablet 00 TWICE A WEEK FOR 8 WEEKS ivermectin Yes TAKE 1 UT (Stromectol 3-12 TABLET BY [facility] ) 3 MG 00:00: MOUTH tablet 00 TWICE A WEEK FOR 8 WEEKS ivermectin Yes TAKE 1 UT (Stromectol 3-12 TABLET BY [facility] ) 3 MG 00:00: MOUTH tablet 00 TWICE A WEEK FOR 8 WEEKS DEXILANT 60 2016-08 Yes TAKE ONE [facility] mg capsule 2-[address] 00:00: MOUTH Hospita 00 EVERY DAY l b complex Yes 1{tbl} QD Take 1 Meth hank vitamins (B 6-02 tablet by COMPLEX 1) 16:29: mouth Hospit a tablet 48 daily. l folic acid Yes 1mg QD Take 1 mg [facility] (FOLVITE) 1 6-[address] MG tablet 16:29: daily. Hospit a 48 l omega Yes Take by Methodi 3-dha-epa-f 6-[address] hallie oil 16:29: Hospita (FISH OIL) 48 l 1,000 mg (120 mg-180 mg) capsule vitamin E Yes 1000U QD Take 1,000 M ethodi 1000 UNIT 6-[address] capsule 16:29: mouth Hospita 48 daily. l melatonin 1 Yes Take by Met hodi mg tablet 6-[address] 16:29: Hospita 48 l ascorbic Yes 1000mg QD Take 1,000 M ethodi acid, 6-02 mg by vitamin C, 16:29: mouth Hospit a (vitamin C) 48 daily. l 1000 MG tablet TURMERIC Yes Methodi (CURCUMIN 6-02 st MISC) 16:29: Hospita 48 l cefTRIAXone Yes 2g QD Infuse 2 g Methodi 2 gram -[address] recon soln 16:29: venous Hospi ta 48 catheter l daily. azithromyci Yes 500mg Q24H Infuse 500 Methodi n 6-[address] (ZITHROMAX) 16:29: venous Hosp pippa 500 mg/250 48 catheter l mL NS daily. M W F intravenou sly IMMUN GLOB 2016- Yes .5g/kg Infuse 0.5 Methodi G,IGG,/GLY/ 6-02 g/kg into st IGA OV50 16:29: a venous Hospi ta (IMMUNE 48 catheter l GLOBULIN, once. GAMUNEX-C,) Every 2 10 % weeks solution coenzyme Yes 100mg QD Take 100 Meth hank Q10 100 mg 6-[address] capsule 16:29: mouth Hospita 48 daily. l RESVERATROL 0 Yes 1200mg Take 1,200 [facility] ORAL 6-[address] 16:29: mouth. Hospita 48 l doxycycline Yes 100mg Q.5D Take 100 M ethodi [...] ts Source Name Name Pneumococcal 2016-06-26 Completed [facility] 13-Valent 00:00:00 Hospi yessenia Vital Signs [...] 65.772 kg approx 145 . Pt is [facility] in a wheelchair Procedures This patient has no known procedures. Plan of Care Planned Activity Planned Date Details Comments Source Future Scheduled Test COVID-19 VACCINE (1) [facility] [code = COVID-19 VACCINE (1)] Future Scheduled Test BREAST CANCER SCREENING [facility] [code = BREAST CANCER SCREENING] Future Scheduled Test COLONOSCOPY SCREENING [facility] [code = COLONOSCOPY SCREENING] Future Scheduled Test SHINGLES VACCINES (#1) [facility] [code = SHINGLES VACCINES (#1)] Future Scheduled Test Screening for malignant [facility] neoplasm of cervix (procedure) [code = 392270837] Future Scheduled Test INFLUENZA VACCINE [code [facility] = INFLUENZA VACCINE] Encounters Start End Encounter Admission Attending Care Care Encounter Source Date/Time Date/Time Type Type Clinicians Facility Department ID 2021-12-24 Outpatient MYRA, [facility] [id number] ID 01:04:46 [facility] [id number] [facility] 2021-10-01 [facility] [id number] ID 16:34:28 [facility] 2021-03-25 [facility] [id number] ID 13:38:33 [facility] 2022-01-20 2022-01-20 Nurse Maida Mcnair [id number] ID 00:00:00 00:00:00 Triage Maida Mcnair [id number] [facility] MEDICAL [id number] [place] [id number] 2021-09-30 2021-09-30 Nurse Omer Castillo [id number] ID 00:00:00 00:00:00 Triage Omer Castillo [id number] [facility] MEDICAL [id number] [place] [id number] 2021-09-24 2021-09-24 Outpatient MYRA CATRINA BLAZE [id number] [facility] 09:41:00 12:55:00 [facility] 2021-09-04 2021-09-04 Office Gigi Renteria [id number] ID 11:00:00 11:40:44 Visit Jeremy Ochoa [id number] [facility] [id number] [facility] [id number] [facility] 2021-08-02 2021-08-02 Outpatient GC_TNC_Cher PRIV PRIV [id number] [facility] 03:52:00 03:52:00 ches_I [id number] Medica l 2021-08-02 2021-08-02 Outpatient [facility], PRIV PRIV [id number] 00:00:00 00:00:00 Calvin Lucero [id number] 2021-08-01 2021-08-01 Outpatient GC_TNC_Cher PRIV PRIV [id number] [facility] 04:15:00 04:15:00 ches_I [id number] Medica l 2021-03-27 2021-03-27 Office MAURISIO Renteria [id number] [place] 09:44:55 10:51:06 Visit Jeremy DE [place] [id number] [facility] [id number] [facility] [id number] 2020-12-21 2020-12-21 Outpatient GC_TNC_Cher PRIV PRIV [id number] [facility] 12:54:00 12:54:00 ches_I [id number] Medica l Results This patient has no known results.
[2022-01-20] MEDS ORDERED: LIDOCAINE VISCOUS 2% SOLN 15 ML UDC ONE (12:23)
--- NOTE | 2022-01-20 14:02 | ER ---
Nurse's Notes [facility] Name: Betty Cruz Age: 51 yrs Sex: Female : 1970 Arrival Date: 01/20/2022 Time: 11:03 Bed 3 Private MD: Salomón Pruett C Diagnosis: Gastrostomy complication, unspecified-replacement of gastrostomy tube Presentation: 01/20 11:51 Chief complaint: Spouse and/or significant other states: that this morning when they ap3 were going through their morning routine they noticed the patients peg tube was out. Significant other has replacement tube. Coronavirus screen: At this time, the client does not indicate any symptoms associated with coronavirus-19. Ebola Screen: No symptoms or risks identified at this time. Initial Sepsis Screen: Does the patient meet any 2 criteria? No. Patient's initial sepsis screen is negative. Does the patient have a suspected source of infection? No. Patient's initial sepsis screen is negative. Risk Assessment: Do you want to hurt yourself or someone else? Patient reports no desire to harm self or others. Onset of symptoms was January 20, 2022. 11:51 Method Of Arrival: Wheelchair ap3 11:51 Acuity: TORY 4 ap3 Triage Assessment: 11:53 General: Appears in no apparent distress. Behavior is calm. Pain: Denies pain. Neuro: ap3 Level of Consciousness is awake, uses iPad to communicate . Oriented to person, place, time, situation. Cardiovascular: Patient's skin is warm and dry. Respiratory: Airway is patent. TACK DRILLER: 14:06 LMP N/A - control method jl7 Historical: - Allergies: 11:53 No Known Allergies; ap3 - PMHx: 11:53 Babesia; Bortonella; CIDP; Ehrlichia; lymes disease; Neurologic disease; PICC Line; ap3 [employer] Fever; WPW syndrome; - Immunization history:: Client reports receiving the 2nd dose of the Covid vaccine, and booster X's 2. - Social history:: Smoking status: Patient/guardian denies using tobacco. Screenin:54 Abuse screen: Denies threats or abuse. Nutritional screening: No deficits noted. ap3 Tuberculosis screening: No symptoms or risk factors identified. 14:14 Fall Risk None identified. ph Assessment: 13:06 Reassessment: Patient appears in no apparent distress at this time. Patient and/or ph family updated on plan of care and expected duration. Pain level reassessed. Patient is alert, oriented x 3, equal unlabored respirations, skin warm/dry/pink. Radiology at bedside. 14:12 Reassessment: Patient appears in no apparent distress at this time. Patient and/or ph family updated on plan of care and expected duration. Pain level reassessed. Patient is alert, oriented x 3, equal unlabored respirations, skin warm/dry/pink. Pt d/c home w/ SO and caregiver. Vital Signs: 11:51 BP 110 / 62; Pulse 85; Resp 16; Temp 98.2; Pulse Ox 100% on 2 lpm NC; Weight 56.7 kg; ap3 Height 5 ft. 5 in. (165.10 cm); 14:13 BP 108 / 72; Pulse 81; Resp 18; Temp 97.9; Pulse Ox 99% on R/A; ph 11:51 Body Mass Index 20.80 (56.70 kg, 165.10 cm) ap3 ED Course: 11:03 Patient arrived in ED. as 11:03 Salomón Pruett MD is Private Physician. as 11:08 [facility] cp 11:08 Martin Pedro DO is Attending Physician. cp 11:47 Gregory Montana, [place] is Primary Nurse. jl7 11:53 Triage completed. ap3 11:54 Arm band placed on right wrist. ap3 11:54 Patient has correct armband on for positive identification. Call light in reach. Adult ap3 w/ patient. Pulse ox on. NIBP on. Door closed. Noise minimized. 13:00 PEG tube reinsertion by LUCERO Perales. jl7 14:01 PEG Tube Check w/contrast In Process Unspecified. EDMS 14:14 Patient did not have IV access during this emergency room visit. ph Administered Medications: 14:04 Drug: Zofran (Ondansetron) 4 mg Route: PO; jl7 14:14 Follow up: Response: No adverse reaction ph Medication: 11:54 VIS not applicable for this client. ap3 Outcome: 14:01 Discharge ordered by MD. cp 14:13 Discharged to home with significant other. ph 14:13 Condition: good 14:13 Discharge instructions given to patient, significant other, Instructed on discharge instructions, follow up and referral plans. Demonstrated understanding of instructions, follow-up care. 14:15 Patient left the ED. ph Signatures: Dispatcher [employer] Ashlee Anders Patricia, RN RN ph Frank Velasco PA PA cp Leal, Jahala, RN RN jl7 Maura Gillette RN RN ap3
--- NOTE | 2022-01-20 14:02 | EDPHYS ---
Physician Documentation [facility] Name: Betty Cruz Age: 51 yrs Sex: Female : 1970 Arrival Date: 01/20/2022 Time: 11:03 Bed 3 Private MD: Salomón Pruett C ED Physician Martin Pedro HPI: 01/20 12:00 This 51 yrs old Female presents to ER via Wheelchair with complaints of peg tube out. cp 12:00 gastrostomy tube accidently pulled out this morning. no other complaints expressed. 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 - Social history:: Smoking status: Patient/guardian denies using tobacco. ROS: 12:05 Constitutional: Negative for fever, poor PO intake. cp 12:05 Cardiovascular: Negative for chest pain. 12:05 Respiratory: Negative for cough, wheezing. 12:05 Abdomen/GI: Negative for vomiting, diarrhea, constipation. 12:05 Skin: Negative for rash. 12:05 All other systems are negative. Exam: 12:10 Constitutional: The patient appears in no acute distress, alert, awake, non-toxic, well cp developed, well nourished. 12:10 Head/Face: Normocephalic, atraumatic. cp 12:10 Cardiovascular: Rate: normal. 12:10 Respiratory: the patient does not display signs of respiratory distress, Respirations: normal, no use of accessory muscles, no retractions. 12:10 Abdomen/GI: Inspection: gastric stoma noted upper mid abdomen, Bowel sounds: active, all quadrants, Palpation: abdomen is soft and non-tender, in all quadrants. 12:10 Skin: abdominal skin appears with no erythema, swelling and/or skin break down. Vital Signs: 11:51 BP 110 / 62; Pulse 85; Resp 16; Temp 98.2; Pulse Ox 100% on 2 lpm NC; Weight 56.7 kg; ap3 Height 5 ft. 5 in. (165.10 cm); 14:13 BP 108 / 72; Pulse 81; Resp 18; Temp 97.9; Pulse Ox 99% on R/A; ph 11:51 Body Mass Index 20.80 (56.70 kg, 165.10 cm) ap3 Procedures: 13:00 G-tube placement: a 20 [place] catheter was placed, by the ED physician, Frank BARKER. cp MDM: 11:51 Patient medically screened. cp 14:00 Data reviewed: vital signs, nurses notes, radiologic studies, plain films, I have cp discussed the patient's presentation/case with the attending Emergency Department Physician; and as a result, I will discharge patient. 14:00 Counseling: I had a detailed discussion with the patient and/or guardian regarding: the cp historical points, exam findings, and any diagnostic results supporting the discharge/admit diagnosis, radiology results, to return to the emergency department if symptoms worsen or persist or if there are any questions or concerns that arise at home. 01/20 12:22 Order name: PEG Tube Check w/contrast cp Administered Medications: 14:04 Drug: Zofran (Ondansetron) 4 mg Route: PO; jl7 14:14 Follow up: Response: No adverse reaction ph Disposition Summary: 01/20/22 14:01 Discharge Ordered Location: Home cp Problem: new cp Symptoms: have improved cp Condition: Stable cp Diagnosis - Gastrostomy complication, unspecified - replacement of gastrostomy tube cp Followup: cp - With: Emergency Department - When: As needed - Reason: Worsening of condition Discharge Instructions: - Discharge Summary Sheet cp - Gastrostomy Tube Replacement cp - Gastrostomy Tube Home Guide, Adult cp Forms: - Medication Reconciliation Form cp - Thank You Letter cp - Antibiotic Education cp - Prescription Opioid Use cp Addendum: 01/21/2022 21:55 Co-signature as Attending Physician, Martin Pedro DO I was immediately available on-site m s3 in the Emergency Department for consultation in the care of the patient. . Signatures: Dispatcher [employer] [facility] Frank Velasco PA PA cp Leal, Jahala, RN RN jl7 Maura Gillette RN RN ap3 Martin Pedro DO DO ms3 Bren Williamson RN ph Corrections: (The following items were deleted from the chart) 09:45 05 12:20 G-tube placement: a 20 [place] catheter was placed, by the ED physician, connor BARKER cp
[2022-01-20] MEDS ORDERED: ONDANSETRON 4 MG (ODT) TAB ONE (14:08)
--- NOTE | 2022-01-20 14:08 | RAD REPORT ---
EXAM DESCRIPTION: RAD - ENTEROSTOMY TUBE CHECK W/CONTR - 01/20/2022 2:00 pm CLINICAL HISTORY: Enteric tube placement FINDINGS: Contrast was administered into the percutaneous enteric tube. The duodenum and small bowel are opacified. No extravasation of contrast. The tip of the tube appears to lie within the duodenal bulb Zero fluoroscopy performed. Zero fluoroscopic spot images obtained
[2022-01-20 14:24] VITALS: BP 108/72; TEMP 97.9; O2SAT 99
== END 2022-01-20 14:15 | disposition home or self-care (01) ==
LOC: ER 11:02
PROC: 0DH63UZ Insertion of Feeding Device into Stomach, Percutaneous Approach (ICD-10-PCS; principal; 2022-01-20)
DX: K94.29 Other complications of gastrostomy (principal)
CPT/HCPCS: 49465; 99283

== ENCOUNTER 2022-10-31 13:52 | Emergency (ER) | payer OTHER ==
--- OUTSIDE RECORDS SUMMARY | 2022-10-31 14:04 | XMS REPORT | Continuity of Care Document ---
:1970 Author Organization [facility] t Address [address] [place] [address] [place] [address] Care Team Providers Name Role Phone Tracy Selby Primary Care Physician MAYLIN ALCARAZ Attending Clinician Unavailable [email or web address] Attending Clinician Unavailable Ariana Cabrera Attending Clinician [phone] Maida Mcnair RN Attending Clinician Unavailable Omer Castillo RN Attending Clinician Unavailable MAYLIN ALCARAZ Attending Clinician Unavailable Maylin Alcaraz Attending Clinician Calvin Thao Attending Clinician [phone] Darrell Hedrick Attending Clinician Calvin Thao Attending Clinician Darryl Villafana Attending Clinician Eagle Landry Attending Clinician Basia Loja Attending Clinician Regina Power Attending Clinician Heath Aaron Attending Clinician [email or web address] Admitting Clinician Unavailable Eagle Landry Admitting Clinician Moose Kimble Admitting Clinician Robert Felder Admitting Clinician Payers Payer Name Policy Type Policy Number Effective Date Expiration Date Claudia turner [employer] CHOICE POS [id number] 2000 00:00:00 II AETNA - CHOICE [id number] 2000 00:00:00 (POS II) GAMUNEX COPAY [id number] PROGRAM Problems Condition Condition Condition Status Onset Resolution Last Treating Co mments Source Name Details Category Date Date Treatment Clinician Date EVAL-CIDP EVAL-CIDP Diagnosis Active 2021-082022-09-29 Memoria FORMER PT FORMER PT 10-07 11:13:[address] [facility] OF [facility] ED[facility]ARDS 00:00: Yolanda perez Active 00 08/06/2022 [facility] GASTROSTOM GASTROSTO Diagnosis Active 2021-09-24 Memevin Y MY 09-17 09:49:00 l COMPLICATI COMPLICATI 00:00: Chris savage ON-K94.20 ON-K94.20 00 Active 09/17/2021 [place] G61.81 G61.81 Diagnosis Active 2019-05-30 Me moria Active 05-20 11:41:00 l 05/20/2019 00:00: Maikol MALLOY [facility] 00 CIPD CIPD Diagnosis Active 2019-06-14 Mem oria Active 05-01 22:16:00 l 05/01/2019 00:00: Maikol gale [facility] 00 SEVERE SEVERE Diagnosis Active 2019-05-10 M emoria DYSPHAGIA DYSPHAGIA 05-01 22:20:00 l Active 00:00: Don 05/01/2019 00 [facility], [facility] PROGRESSIV PROGRESSI Diagnosis Active 2019-04-22 Helen JASSO 04-19 15:37:00 l DYSPHASIA DYSPHASIA 00:00: Herm chris AND AND 00 GENERLIZED GENERLIZED Active 04/19/2019 [facility] DYSPHAGIA DYSPHAGIA Diagnosis Active 2019-05-17 Memoria Active 04-18 11:24:00 l 04/18/2019 08:00: Maikol gale [facility] 00 MBS MBS Diagnosis Active 2019-05-03 Mem oria Active 04-05 13:50:00 l 04/05/2019 00:00: Maikol gale [facility] 00 400 400 Diagnosis Active 2019-10-13 Mem oria Active 03-16 09:18:00 l 03/16/2019 00:00: Maikol gale [facility] 00 400 UNITS 400 UNITS Diagnosis Active 2019-03-16 Memoria Active 03-02 08:21:00 l 03/02/2019 00:00: Maikol gale [facility] 00 FOLLOW UP FOLLOW UP Diagnosis Active 2019-03-02 Memoria Active 12-15 10:52:00 l 12/15/2018 00:00: Maikol gale [facility] 00 300 300 Diagnosis Active 2018-12-15 Mem oria Active 11-30 10:06:00 l 11/30/2018 00:00: Maikol gale [facility] 00 EVAL SPA EVAL SPA Diagnosis Active 2019-02-08 Memoria Active 08-31 08:31:00 l 08/31/2018 00:00: Maikol gale [facility] 00 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 00:00: [facility] 00 l Chronic Chronic Problem Active 2014-08 [facility] inflammato Inflammato 1-16 Me dical ry ry 00:00: demyelinat Demyelinat 00 ing ing polyneurop Polyneurop athy athy Asthenia Asthenia Problem Active 2014-08 [facility] 0-28 Medical 00:00: 00 Cervical Cervical Problem Active [facility] spondylosi Spondylosi 8-31 Me dical s with s with 00:00: myelopathy Myelopathy 00 Reflux Reflux Problem Active 2021-09-26 Pradeep saenz (finding) (finding) 08-24 23:10:06 l Active 00:00: [place] 08/24/2010 00 Problem 09/26/2021 [facility], [facility], [place] R13.12 R13.12 Diagnosis Active 2000-2019-05-04 Mo moria Active 08-24 22:27:00 l 08/24/2000 11:11: Maikol gale [address] Dysphagia, Dysphagia Problem 2019-04-07 Memoria unspecifie , 11:32:16 l d unspecifie Maikol n d 04/07/2019 [facility] Quadripleg Quadriple Problem 2019-04-07 Memoria ia, rita, 11:32:16 l unspecifie unspecifie He rmchris d d 04/07/2019 [facility] Major Major Problem 2019-04-07 Memor ia depressive depressive 11:32:16 l disorder, disorder, Herm chris single single episode, episode, unspecifie unspecifie d d 04/07/2019 [facility] Myoclonus Myoclonus Problem 2019-04-07 Memoria 04/07/2019 11:32:16 l [facility] [place] Unspecifie Unspecifi Problem 2019-04-07 Memoria d ed 11:32:16 l kyphosis, kyphosis, Herm chris thoracic thoracic region region 04/07/2019 [facility] Pain in Pain in Problem 2019-04-07 M emoria left foot left foot 11:32:16 l 04/07/2019 Maikol gale [facility] Chronic Chronic Problem 2019-05-25 Mo moria inflammato inflammato 22:05:14 l ry ry Don demyelinat demyelinat ing ing polyneurit polyneurit is is 05/25/2019 [facility] Unspecifie Unspecifi Problem 2019-02-03 Memoria d speech ed speech 11:16:13 l disturbanc disturbanc He hussein es es 02/03/2019 [facility] Babesiosis Babesiosi Problem Resolve 2021-09-26 Memoria (disorder) s d 23:10:06 l (disorder) Maikol n Resolved Problem 09/26/2021 [facility], [place] Bartonello Bartonell Problem Resolve 2021-09-26 Memoria sis osis d 23:10:06 l (disorder) (disorder) He rmann Resolved Problem 09/26/2021 [facility], [place] Carpal Carpal Problem Resolve 2021-09-26 Mem oria tunnel tunnel d 23:10:06 l syndrome syndrome Maikol n (disorder) (disorder) Resolved Problem 09/26/2021 [facility], [place] Lyme Lyme Problem Resolve 2021-09-26 Pradeep letty arthritis arthritis d 23:10:06 l (disorder) (disorder) He rmann Resolved Problem 09/26/2021 [facility], [place] Lyme Lyme Problem Resolve 2021-09-26 Pradeep letty disease disease d 23:10:06 l (disorder) (disorder) He rmann Resolved Problem 09/26/2021 [facility], [place] Raynaud's Raynaud's Problem Resolve 2021-09-26 Memoria disease disease d 23:10:06 l (disorder) (disorder) He rmann Resolved Problem 09/26/2021 [facility], [place] Tom Tom Problem Resolve 2021-09-26 Pradeep letty [place] d 23:10:06 l spotted spotted Don fever fever (disorder) (disorder) Resolved Problem 09/26/2021 [facility], [place] 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 d 23:10:06 l (disorder) (disorder) He rmann Resolved Problem 09/26/2021 [facility], [place] Upper Upper Problem Resolve 2021-09-26 Pradeep letty respirator respirator d 23:10:06 l y y [place] infection infection (disorder) (disorder) Resolved Problem 09/26/2021 [facility], [place] Dysphagia Dysphagia Problem Active 2021-09-26 Memoria (disorder) (disorder) 23:10:06 l Active Don Problem 09/26/2021 [facility], [place] Esophagoga Esophagog Problem Active 2021-09-26 Memoria strostomy, astrostomy 23:10:06 l antesterna , Maikol n l or antesterna antethorac l or ic antethorac (procedure ic ) (procedure ) Active Problem 09/26/2021 [facility], [place] Hypertensi Hypertens Problem Active 2021-09-26 Memoria ve bladimir 23:10:06 l disorder, disorder, Herm chris systemic systemic arterial arterial (disorder) (disorder) Active Problem 09/26/2021 [facility], [place] Nutritiona Nutrition Problem Active 2021-09-26 Memoria l marasmus al 23:10:06 l (disorder) marasmus Herm chris (disorder) Active Problem 09/26/2021 [facility], [place] Simple Simple Problem Active 2021-09-26 Pradeep letty obesity obesity 23:10:06 l (disorder) (disorder) He rmann Active Problem 09/26/2021 [facility], [place] Quadripare Quadripar Problem Active 2021-09-26 Memoria sis esis 23:10:06 l (disorder) (disorder) He rmann Active Problem 09/26/2021 [facility], [place] CHRONIC CHRONIC Diagnosis Active 2019-06-14 Memoria INFLAMMATO INFLAMMATO 22:16:00 l RY RY Don DEMYELINAT DEMYELINAT ING POLYN ING POLYN Active [facility] No known No known Disease [place] active active Health problems problems Reflux Reflux Disease Active [facility] History of Past Illness Condition Condition Condition Status Onset Resolution Last Treating Co mments Source Name Details Category Date Date Treatment Clinician Date Lyme Lyme Problem 2018-2019-04-07 2019-04-07 M emoria disease, disease, 09-22 11:32:16 11:32:16 l unspecifie unspecifie 06:14: He rmann d d 13 09/22/2018 04/07/2019 [facility] Allergies, Adverse Reactions, Alerts Allergy Allergy Status Severity Reaction(s) Onset Inactive Treating Comm ents Source Name Type Date Date Clinician No Known No Known Active Memori a Medicati Medicati l on on Don Ayala s s Family History Family Member Diagnosis Comments Start Date Stop Date Source Natural brother No Known Problems [facility] Natural brother Rheumatologic disease [facility] Natural father Diabetes type II Meth [facility] Natural father Hyperlipidemia [facility] Natural father Hypertension [facility] Natural mother Hypothyroidism Method [facility] mother Polymyositis [facility] Social History Social Habit Start Date Stop Date Quantity Comments Source Exposure to 2022-04-27 2022-05-07 Not sure [facility] SARS-CoV-2 00:00:00 11:00:00 (event) Social History 2019-05-03 2019-05-03 [facility] catarino 11:59:31 11:59:31 Alcohol intake 2017-01-23 2017-01-23 Current drinker [facility] 00:00:00 00:00:00 of alcohol Hospital (finding) Tobacco use and 2016-10-21 2016-10-21 Smokeless tobacco Mo [facility]odist exposure 00:00:00 00:00:00 non-user Hospital Alcohol Comment 2016-10-21 2016-10-21 rarre [facility] 00:00:00 00:00:00 Hospital Sex Assigned At [birth year] [facility] 00:00:00 00:00:00 Hospital Smoking Status Start Date Stop Date Source Tobacco smoking consumption unknown [facility] Never smoked tobacco [facility] Medications Ordered Filled Start Stop Current Ordering Indication Dosage Frequency Signature Comments Components Source Medication Medication Date Date Medication? Clinician (SIG) Name Name Feeding Yes [id number] Replace as [facility] Tubes - 14 needed. Health Tubing 00:00: (Kangaroo 00 Gastrostomy Tube/20FR) misc Feeding 2021- No [id number] Replace as [place] Tubes - 9-14 05-07 needed. Health Tubing 00:00: 00:00 (Kangaroo 00 :00 Gastrostomy Tube/20FR) misc Tylenol No 1,000 mg, Memor ia 09-24 Route: PO, l 18:19: ONCE, [place] 00 Dosing Weight 59.091, kg, Start date: 09/24/21 12:19:00 [employer]PECTION [employer]IST, Stop date: 09/24/21 12:19:00 [employer]PECTION SPECIALIST lidocaine No Route: IV, Me moria (ANES) 09-24 Drug form: l 17:21: INJ, ONCE, Stop date: 09/24/21 11:21:00 [employer]PE[employer] SPECIALIST propofol No Route: IV, Mem oria (ANES) 10 09-24 Drug form: l mg 17:04: INJ, Start date: 09/24/21 11:04:00 [employer] INSPECTION SPECIALIST, Stop date: 09/24/21 12:04:00 AUT[employer] INSPECTION SPECIALIST Lactated No Route: IV, Mem oria Ringers 09-24 Total l Injection 17:01: Volume: Imani nn IV (ANES) 00 1,000, 1000 mL Start date: 09/24/21 11:01:00 AUTO INSPECTION SPECIALIST, Stop date: 09/24/21 12:01:00 AUTO INSPECTION SPECIALIST Lactated No 500 mL, Memori a Ringers IV 09-24 Rate: 125 l 500 mL 15:41: ml/hr, Infuse over: 4 hr, Route: IV, Dosing Weight 59.091 kg, Total Volume: 500, Start date: 09/24/21 9:41:00 AUT[employer] INSPECTION SPECIALIST, Duration: 30 day, Stop date: 10/24/21 9:40:00 AUTO INSPECTION SPECIALIST, BSA: 1.66 m2, 0 Gamunex-C Yes 300 mg/kg, Me moria 10% - IV, q4wk, l injectable 22:35: 0 Don Refill(s) escitalopra Yes 10 mg = 1 M emoria m 10 mg - tab, PO, l oral tablet 22:33: Daily, 0 He rmann Refill(s) Atenolol 25 Yes 25 mg = 1 M emoria MG Oral -28 tab, PO, l Tablet 22:32: BID, 0 [place] Refill(s) escitalopra 2021-0 Yes 10mg QD Take 10 [...] (one) time tablet 00 each day. omeprazole 2021-0 Yes 20mg Q.5D Take 20 mg U T (PriLOSEC) 6-04 by mouth [facility] [address] 00:00: (two) capsule 00 times a day. omeprazole 2021-0 Yes 20mg Q.5D Take 20 mg U T (PriLOSEC) 6-04 by mouth [facility] [address] 00:00: (two) capsule 00 times a day. omeprazole 2021-0 Yes 20mg Q.5D Take 20 mg U T (PriLOSEC) 6-04 by mouth [address] [facility] [address] 00:00: (two) capsule 00 times a day. omeprazole 2021-0 Yes 20mg Q.5D Take 20 mg U [...] injection syringe EPINEPHrine 2020-0 Yes [facility] (Epipen) [facility] 0.3 00:00: MG/0.3ML 00 injection syringe [...] (one) time tablet 00 each day. atenolol 1-0 Yes 25mg QD Take 25 [...] TAKE 1 UT (Stromectol 3-12 TABLET BY [facility] ) 3 MG 00:00: MOUTH tablet 00 TWICE A WEEK FOR 8 WEEKS ivermectin Yes TAKE 1 UT (Stromectol 3-12 TABLET BY [facility] ) 3 MG 00:00: MOUTH tablet 00 TWICE A WEEK FOR 8 WEEKS ivermectin Yes TAKE 1 UT (Stromectol 3-12 TABLET BY [facility] ) 3 MG 00:00: MOUTH tablet 00 TWICE A WEEK FOR 8 WEEKS ivermectin Yes TAKE 1 UT (Stromectol 3-12 TABLET BY [facility] ) 3 MG 00:00: MOUTH tablet 00 TWICE A WEEK FOR 8 WEEKS ivermectin Yes TAKE 1 UT (Stromectol 3-12 TABLET BY [facility] ) 3 MG 00:00: MOUTH tablet 00 TWICE A WEEK FOR 8 WEEKS ivermectin Yes TAKE 1 UT (Stromectol 3-12 TABLET BY [facility] ) 3 MG 00:00: MOUTH tablet 00 TWICE A WEEK FOR 8 WEEKS ivermectin Yes TAKE 1 [facility] (Stromectol 3-12 TABLET BY [facility] ) 3 MG 00:00: MOUTH tablet 00 TWICE A WEEK FOR 8 WEEKS Esomeprazol 2018-08 Yes = 1 pkt, Me moria e 2.67 0-02 PEG, l MG/ML Oral 16:21: Daily, Imani nn Suspension 00 disolve 1 [Nexium] pkt in water an give via peg, # 30 pkt, 0 Refill(s), called to pharmacy Sulfamethox Yes 1 tab, PO, Memoria azole 800 930 [id number], l MG / 18:16: Pharmacist Don Trimethopri 01 : replaces m 160 MG prior Rx, Oral Tablet lower #, # [Bactrim] 14 tab, 0 Refill(s) ondansetron Yes 4 mg = 1 Me moria 4 mg oral 30 tab, PEG, l tablet 18:10: Q8H, PRN [place] 00 Nausea, # 20 tab, 0 Refill(s) Magic Yes Magic Memoria Mouthwash 05-23 Mouthwash l with 18:10: with Don Carafate 00 Carafate, See Instructio ns, 5 mL Swish&SPIT TID. Pharmacist : 1:1:1:1 ratio of Benadryl, Lidocaine, Carafate, Maalox for ORAL use, # 500 mL, Refill(s) 1 Erythromyci Yes 250 mg = 1 Memoria n 250 MG 05-23 tab, PO, l Enteric 18:10: TID-Before Herm chris Coated 00 Meals, Tablet gastric motility agent, # 270 tab, 0 Refill(s) Erythromyci No Notes: Pradeep letty n 250 MG 05-23 (Same as: l Enteric 16:30: erythromyc Herm chris Coated 00 in base) Tablet Give With Food "Do Not Crush" Metoclopram No 5 mg, Memor ia lissette 5 MG 05-22 Route: PO, l Oral Tablet 16:30: Drug form: [place] [Reglan] 00 TAB, Before Meals & Bedtime, Dosing Weight 71, kg, Start date: 05/22/19 11:30:00 CDT, Duration: 2 day, Stop date: 05/24/19 7:30:00 CDT Erythromyci No Notes: Pradeep letty n 250 MG 05-22 (Same as: l Enteric 16:30: erythromyc Herm chris Coated 00 in base) Tablet Give With Food "Do Not Crush" Ketotifen Yes 1 drp, Memori a 0.25 MG/ML 05-20 BOTH EYES, l Ophthalmic 19:59: Q8H, PRN Her padilla Solution 00 itchy [Zyrtec eyes, # 5 Itchy Eye] mL, 0 Refill(s) lactobacill Yes PEG, BID, M emoria us 05-20 0 l rhamnosus 19:59: Refill(s) Her padilla GG 00 lansoprazol Yes 30 mg = 10 Memoria e 3 mg/mL 05-20 mL, PO, l oral 19:59: Before Don suspension 00 Breakfast, Pharmacist : Substituti on for an equivalent alternativ e ppi is acceptable , if covered by insurance plan, # 300 mL, 1 Refill(s) polyethylen Yes PEG, BID, M emoria e glycol 05-20 PRN l 3350 oral 19:59: Constipati He rmann powder for 00 on, 0 reconstitut Refill(s) ion simethicone Yes 80 mg = 1 M emoria 80 mg oral 05-20 tab, PEG, l tablet, 19:59: Q6H, PRN Maikol n chewable 00 as needed for gas, 0 Refill(s) sodium Yes 12 years, Memor ia biphosphate 05-20 Pediatric l -sodium 19:59: Dosing, 0 Imani nn phosphate 00 Refill(s) 19 g-7 g rectal enema Sulfamethox No 1 tab, PO, Memoria azole 800 05-20 [id number], # l MG / 19:59: 19 tab, 0 Don Trimethopri 00 Refill(s) m 160 MG Oral Tablet [Bactrim] Calcium Yes 1,000 mg = Pradeep letty Carbonate 05-20 2 tab, l 500 MG 19:59: CHEW, TID, Imani nn Chewable 00 PRN as Tablet needed for dyspepsia, 0 Refill(s) saliva Yes 15 mL, Memoria substitutes 05-20 BUC, QID, l oral 19:59: # 300 mL, Don solution 00 1 Refill(s) Acetaminoph Yes 100.4 F, M emoria en 325 MG 05-20 0 l Oral Tablet 19:59: Refill(s) H ermann 00 Diclofenac Yes 2 gm, TOP, M emoria Sodium 0.01 9-27 TID, PRN l MG/MG 19:59: Pain Score Maikol n Topical Gel 00 1-3, # 100 [Voltaren] gm, 1 Refill(s) diphenhydrA Yes 12.5 mg = M emoria MINE 25 mg 9-27 0.5 tab, l oral tablet 19:59: PEG, BID, H ermann 00 PRN Other -See Comment, 0 Refill(s) Fluticasone Yes 100 Memori a propionate 9-27 microgram l 0.05 19:59: = 2 spray, Hilton MG/ACTUAT 00 Each Metered Affected Dose Nasal Nostril, [place] BID, # 1 [Flonase] ea, 0 Refill(s) Guaifenesin Yes 200 mg = Me moria 20 MG/ML 9-27 10 mL, l Oral 19:59: PEG, QID, Hilton Solution 00 PRN as needed for congestion , 0 Refill(s) Ibuprofen Yes PEG, Q8H, Mem oria 400 MG Oral 9-27 PRN Pain l Tablet 19:59: Score 4-6, Imani nn 00 0 Refill(s) Sulfamethox No Notes: One Memoria azole 800 9-27 DS tablet l MG / 15:00: = Hilton Trimethopri 00 trimethopr m 160 MG im 160mg + Oral Tablet sulfametho [Bactrim] xazole 800 mg Dose based on trimethopr im component On empty stomach with a glass of water. (Same As: Bactrim DS, Septra DS) Miralax No Notes: Memoria -26 Dissolve l 20:19: in 8 oz of Hilton 00 water or juice. (Same as: Miralax) Tums No Notes: Memoria 9-26 (Same As: l 19:07: Tums) Hilton 00 Calcium Carbonate 500 mg = 200 mg elemental calcium Dose = mg calcium carbonate ( mg elemental calcium) Miralax No Notes: Memoria 9-26 Dissolve l 13:30: in 8 oz of Hilton 00 water or juice. (Same as: Miralax) lactobacill No Notes: Pradeep letty us 05-19 Same as l rhamnosus 02:00: Culturelle [facility] GG Simethicone No Notes: Pradeep letty 05-18 (Same as: l 18:47: Mylicon) Hilton Banatrol No Notes: Memoria Plus 05-18 (Same as: l 16:57: Banatrol Don Plus) Non-formul precious Oxymetazoli No Notes: Pradeep letty ne 05-18 (Same as: l hydrochlori 01:00: Afrin) Herm chris de 0.5 00 MG/ML Nasal [place] [Afrin] cefepime + No Notes: Memor ia Sodium 05-17 (Same As: l Chloride 23:00: Maxipime) Herm chris 0.9% IV 100 00 mL MEDICATION WASTE Product Size: 1000 mg Product Wasted: ___ mg normal No 1,000 mL, Memori a saline 0.9% 05-17 Rate: 100 l IV 1,000 mL 20:48: ml/hr, Herm chris Infuse over: 10 hr, Route: IV, Dosing Weight 71 kg, Total Volume: 1,000, Start date: 05/17/19 15:48:00 CDT, Duration: 1 doses or times, Stop date: 05/18/19 1:47:00 CDT, 1.82, m2, 0 Banatrol No Notes: Memoria Plus 05-17 (Same as: l 20:48: Banatrol Don Plus) Non-formul precious cefepime No Notes: Memoria -24 (Same As: l 15:03: Maxipime) Don MEDICATION WASTE Product Size: 1000 mg Product Wasted: ___ mg Ibuprofen No Notes: Memori a 400 MG Oral 24 (Same as: l Tablet 14:56: Motrin [facility] , Advil [facility] ) Take with food. Fluticasone No 2 spray, Me moria propionate 05-17 Route: l 0.05 13:30: Each Don MG/ACTUAT 00 Affected Metered Nostril, Dose Nasal Drug Form: [place] SPRY, [Flonase] Dosing Weight 71, kg, Daily, Start date: 05/17/19 8:30:00 CDT, Duration: 30 day, Stop date: 06/15/19 8:30:00 CDT Ibuprofen No Notes: Memori a 400 MG Oral 9-23 (Same as: l Tablet 21:55: Motrin [facility] 00 [facility] , Advil [facility] ) Take with food. normal No 1,000 mL, Memori a saline 0.9% 9- Rate: 120 l IV 1,000 mL 20:45: ml/hr, Infuse over: 8.3 hr, Route: IV, Dosing Weight 71 kg, Total Volume: 1,000, Start date: 05/16/19 15:45:00 CDT, Duration: 1 doses or times, Stop date: 05/17/19 0:02:00 CDT, 1.82, m2, 0 NS (Bolus) No 1,000 mL, Me moria IV 9-23 500 ml/hr, l 14:27: Infuse Over: 2 hr, Route: IV, 1,000, Drug form: INJ, ONCE, Priority: STAT, Dosing Weight 71 kg, Start date: 05/16/19 9:27:00 CDT, Stop date: 05/16/19 9:27:00 CDT, 0 Motrin No Notes: Memoria 9-23 (Same as: l 13:10: Motrin) Hilton 00 "Do Not Crush" Take with food. Ibuprofen No Notes: Memori a 400 MG Oral 9-23 (Same as: l Tablet 11:54: Motrin) [place] 00 "Do Not Crush" Take with food. ibuprofen No Notes: Memori a 100 mg/5 mL 9-23 (Same as: l oral 02:36: Motrin Don suspension [facility] , Advil Children[facility] ) Take with food. Ibuprofen No 400 mg, 1 Mem oria 400 MG Oral 9-23 tab, l Tablet 02:23: Route: PO, Imani nn 00 Drug form: TAB, ONCE, Dosing Weight 71, kg, Start date: 05/15/19 21:23:00 CDT, Stop date: 05/15/19 21:23:00 CDT, 0 normal 2019-0 No 1,000 mL, Memori a saline 0.9% 05-16 Rate: 75 l IV 1,000 mL 02:21: ml/hr, Herm chris Infuse over: 13.3 hr, Route: IV, Dosing Weight 71 kg, Total Volume: 1,000, Start date: 05/15/19 21:21:00 CDT, Duration: 13 hr, Stop date: 05/16/19 10:20:00 CDT, 1.82, m2, 0 tramadol 2019-0 No 50 mg, 1 Memor ia hydrochlori -23 tab, l de 50 MG 00:41: Route: PO, Her padilla Oral Tablet 00 Drug form: TAB, ONCE, Dosing Weight 71, kg, Start date: 05/15/19 19:41:00 CDT, Stop date: 05/15/19 19:41:00 CDT, 0 Naproxen 2018-0 No 500 mg, 1 Pradeep letty -22 tab, l 23:27: Route: PO, Don 00 Drug form: TAB, ONCE, Dosing Weight 71, kg, Start date: 05/15/19 18:27:00 CDT, Stop date: 05/15/19 18:27:00 CDT, 0 Lidocaine 2018-0 No Notes: Memori a Hydrochlori -20 (Same as: l de 10 MG/ML 23:00: Xylocaine) Hilton Injectable Solution normal 2018- No 1,000 mL, Memori a saline 0.9% -20 Rate: 125 l IV 1,000 mL 13:29: ml/hr, Herm chris Infuse over: 8 hr, Route: IV, Dosing Weight 71 kg, Total Volume: 1,000, Start date: 05/13/19 8:29:00 CDT, Duration: 1 doses or times, Stop date: 05/13/19 16:28:00 CDT, 1.82, m2, 0 Simethicone 2019-0 No Notes: Pradeep letty 9-18 (Same as: l 23:00: Mylicon) [place] Miralax 2018-0 No Notes: Memoria 9-18 Dissolve l 22:12: in 8 oz of Hilton water or juice. (Same as: Miralax) D5W S No 1,000 mL, Mem oria 1,000 mL 05-11 Rate: 80 l 16:06: ml/hr, Hilton 00 Infuse over: 12.5 hr, Route: IV, Dosing Weight 71 kg, Total Volume: 1,000, Start date: 05/11/19 11:06:00 CDT, Duration: 1 day, Stop date: 05/12/19 11:05:00 CDT, 1.82, m2, 0 Diclofenac No Notes: Memor ia Sodium 0.01 05-11 Same as: l MG/MG 02:00: Voltaren [place] Topical Gel 00 Gel [Voltaren] D5W S + No Notes: Pradeep letty KCL 20mEq/L 05-10 PREMIX IV l 1000ml 17:12: - Do Not Hilton (Premix) 00 Alter 1,000 mL WASTE: F/P - Sink; E - Municipal Trash Bin Lovenox No Notes: Memoria -16 (Same as: l 22:00: Lovenox) [place] Cathflo No Notes: Memoria Activase 2 -16 "Syringe l mg 20:58: for Don injection 00 catheter clearance or interventi onal radiology use. Reconstitu te each vial of Cath[facility] Activase with 2.2 ml Sterile Water resulting in a 1 mg/ml solution. (Same as: Activase) MEDICATION WASTE Product Size: 2 mg Product Wasted: ___ mg normal No 500 mL, Memoria saline 0.9% 05-09 Rate: 80 l IV 500 mL 19:22: ml/hr, Maikol n 00 Infuse over: 6.3 hr, Route: IV, Dosing Weight 71 kg, Total Volume: 500, Start date: 05/09/19 14:22:00 CDT, Duration: 1 doses or times, Stop date: 05/09/19 20:39:00 CDT, 1.82, m2, 0 Simethicone No Notes: Pradeep letty -16 (Same as: l 18:00: Mylicon) Don 00 lactobacill No Notes: Pradeep letty us 05-09 High l acidophilus 18:00: Potency Her padilla Chewable lactobabac illus acidophilu s 1 billion bacteria/t ablet Non-formul precious drug Lactobacill No 1 tab, Pradeep letty us 05-09 Route: l acidophilus 17:00: PEG, Maikol Dosing Lactobacill Weight 71, us kg, BID, bulgaricus Start date: 05/09/19 12:00:00 CDT, Duration: 30 day, Stop date: 06/08/19 8:30:00 CDT Bisacodyl No Notes: Memori a - (Same As: l 23:00: Dulcolax, Bisco-Lax) Fleet Enema No 12 years, Memoria 9-13 Pediatric l 22:35: Dosing, 0 Hilton 00 Zofran No Notes: Memoria 9-13 (Same as: l 17:30: Zofran) Zofran No Notes: Memoria 9-13 (Same as: l 17:25: Zofran) sennosides, No Notes: Pradeep letty SNF 8.6 MG 05-06 (Same as: l Oral Tablet 17:00: Senokot) He rm Tums No Notes: Memoria 9-13 (Same As: l 07:36: Tums) Calcium Carbonate 500 mg = 200 mg elemental calcium Dose = mg calcium carbonate ( mg elemental calcium) Tramadol No Notes: Not Mem oria 05-05 to exceed l 15:38: 400mg/day. (Same As: Ultram) pantoprazol No 40 mg, Pradeep letty e 05-05 Route: PO, l 13:30: Daily, Don Dosing Weight 71, kg, Start date: 05/05/19 8:30:00 CDT, Duration: 30 day, Stop date: 06/03/19 8:30:00 CDT Prevacid No Notes: Memoria 9-12 Take 1 l 12:00: hour Don 00 before or 2 hours after meal; Expires in 14 days. Shake well before use. (Same as:Prevaci d) Compound ed Product - formulatio n not commercial ly available* * Benadryl No Notes: Memoria 05-05 (Same as: l 00:37: Benadryl) Benadryl No 12.5 mg, Memor ia 05-05 Route: IV, l 00:36: ONCE, Dosing Weight 71, kg, Start date: 05/04/19 19:36:00 CDT, Stop date: 05/04/19 19:36:00 CDT Benadryl No Notes: Memoria 05-04 (Same as: l 21:00: Benadryl) Tylenol No Notes: Do Memor ia 05-04 not exceed l 21:00: 4 gm/day. (Same as: Tylenol) Gamunex-C No Notes: For Me moria 05-04 adults: l 21:00: use IBW of XX used for XX mg/kg per protocol For adult patients: Begin at 1 mg/kg/min. If tolerating , may double rate after 30 minutes and continue to increase every 15 minutes to a maximum of 4 mg/kg/min. Reduce the infusion by half if adverse reactions occur and notify prescriber . If symptoms continue after 15 minutes, stop infusion and notify prescriber . If symptoms subside promptly, the infusion may be resumed at the previously tolerated rate. Most reactions occur in the first 30 minutes of infusion. Monitor patient closely for vital sign changes or flushing. WASTE: F/P - Red; E -Red Lot # Mf g: __ (Gamunex - C) Non-Formul precious "blood product derivative " Benadryl No 25 mg, 1 Memor ia 05-04 tab, l 20:30: Route: PO, Drug form: TAB, ONCE, Start date: 05/04/19 15:30:00 CDT, Stop date: 05/04/19 15:30:00 CDT, 0 Tylenol No Notes: Do Memor ia 9-11 not exceed l 18:30: 4 gm/day. (Same as: Tylenol) Benadryl 2018- No 12.5 mg, Memor ia 05-04 0.5 tab, l 18:24: Route: Hilton 00 PEG, Drug form: TAB, BID, Dosing Weight 71, kg, PRN Other -See Comment, Start date: 05/04/19 13:24:00 CDT, Duration: 30 day, Stop date: 06/03/19 13:23:00 CDT, 0 Benadryl No 12.5 mg, Memor ia - Route: IV, l 16:57: BID, Dosing Weight 71, kg, PRN Other -See Comment, Start date: 05/04/19 11:57:00 CDT, Duration: 30 day, Stop date: 06/03/19 11:56:00 CDT normal No 1,000 mL, Memori a saline 0.9% 05-04 Rate: 80 l IV 1,000 mL 15:43: ml/hr, Infuse over: 12.5 hr, Route: IV, Dosing Weight 71 kg, Total Volume: 1,000, Start date: 05/04/19 10:43:00 CDT, Duration: 1 doses or times, Stop date: 05/04/19 23:12:00 CDT, 1.82, m2, 0 Diphenhydra No 25 mg, 1 Me moria mine 05-04 tab, l 04:59: Route: PO, Drug form: TAB, ONCE, Dosing Weight 71, kg, Start date: 05/03/19 23:59:00 CDT, Stop date: 05/03/19 23:59:00 CDT, 0 cetirizine No Notes: Memor ia -11 (Same As: l 03:00: Zyrtec) Fluticasone No Notes: Pradeep letty propionate -11 (Same as: l 0.05 02:00: Flonase) Hilton MG/ACTUAT 00 Metered Dose Nasal [place] [Flonase] Cetirizine No Notes: Memor ia 9-10 (Same As: l 23:30: Zyrtec) Don 00 Ketotifen No Notes: Memori a 0.25 MG/ML 05-03 (Same l Ophthalmic 23:11: as:Zaditor H ermann Solution 00 ) [Zyrtec Itchy Eye] Guaifenesin No Notes: Pradeep letty 20 MG/ML 05-03 (Same as: l Oral 22:30: Robitussin Don Solution 00 ) Miralax No Notes: Memoria -10 Dissolve l 22:00: in 8 oz of Don 00 water or juice. (Same as: Miralax) Maalox No Notes: Memoria Advanced 05-03 (aluminum l Regular 20:56: hydroxide- Herm chris Strength 00 magnesium SUSP hyd-simeth icone 200-200-20 mg/5ml 30 ml ud HEATHER) normal No 1,000 mL, Memori a saline 0.9% 05-03 Rate: 125 l IV 1,000 mL 15:23: ml/hr, Herm chris 00 Infuse over: 8 hr, Route: IV, Dosing Weight 71 kg, Total Volume: 1,000, Start date: 05/03/19 10:23:00 CDT, Duration: 1 doses or times, Stop date: 05/03/19 18:22:00 CDT, 1.82, m2, 0 ketOROLAC No 4 days Memor ia 30 mg/mL 05-03 l injectable 15:04: MEDICATION H ermann solution WASTE Product Size: 30 mg Product Wasted: ___ mg Magic No 5 mL, Memoria Mouthwash w 05-03 Route: l carafate 13:30: S&Maikol ARMSTRONG (Benadryl/L 00 Drug Form: idocaine/Ma SUSP, alox/Carafa Dosing te) 1:1:1:1 Weight 71, kg, TID, Start date: 05/03/19 8:30:00 CDT, Duration: 30 day, Stop date: 06/01/19 21:00:00 CDT, 0 Nystatin 0 No 500,000 Memori a [id number] 9-10 unit, 5 l UNT/ML Oral 13:30: mL, Route: Hilton Suspension 00 Swab Mouth, Drug form: SUSP, BID, Dosing Weight 71, kg, Start date: 05/03/19 8:30:00 CDT, Duration: 30 day, Stop date: 06/01/19 21:00:00 CDT, 0 monofluorop 2018- No Notes: Pradeep letty hosphate 9-10 Same as l 13:30: Biotene Oral Balance morphine No 1 mg, 0.5 Pradeep letty Sulfate 9-10 mL, Route: l 08:01: IV, Drug form: SOLN, ONCE, Dosing Weight 71, kg, Start date: 05/03/19 3:01:00 CDT, Stop date: 05/03/19 3:01:00 CDT, 0 heparin No Notes: Memoria 9-10 porcine l 05:00: heparin D5W 1/2NS No 1,000 mL, Mem oria 1,000 mL 9-10 Rate: 100 l 03:00: ml/hr, Infuse over: 10 hr, Route: IV, Dosing Weight 71 kg, Total Volume: 1,000, Start date: 05/02/19 22:00:00 CDT, Duration: 1 doses or times, Stop date: 05/03/19 7:59:00 CDT, 1.82, m2, 0 morphine No 0.5 mg, Memori a 0.5 mg/mL -10 0.25 mL, l preservativ 02:59: Route: IV, Don e-free 00 Drug form: injectable SOLN, solution ONCE, Dosing Weight 71, kg, Start date: 05/02/19 21:59:00 CDT, Stop date: 05/02/19 21:59:00 CDT, 0 Milk of No Notes: Memoria Magnesia 9-10 (Same as: l 02:06: Milk of Magnesia, MOM) Bisacodyl No Notes: Memori a 9-10 (Same As: l 02:06: Dulcolax, Bisco-Lax) Saline No Notes: Memoria Flush 0.9% 9-10 (Same as: l 02:06: BD Posiflush) Albuterol No Notes: Memori a 0.833 MG/ML 05-03 (Same as: / 02:06: Duoneb) Ipratropium 00 Kila 0.167 MG/ML Inhalant Solution Midazolam No 40 kg Memori a 05-03 l 02:06: Levetiracet No Notes: Pradeep letty am 05-03 Same as l 02:06: Keppra Mix with 100 mL NS, LR or D5W MEDICATION WASTE Product Size: 500 mg Product Wasted: 0___ mg Acetaminoph No 100.4 F, M emoria en 05-03 Start l 02:06: date: 05/02/19 21:06:00 CDT, Duration: 30 day, Stop date: 06/01/19 21:05:00 CDT, 0 Acetaminoph No 1,000 mg, Jazmine emoria en 05-02 Route: IV, l 19:09: ONCE, Dosing Weight 71, kg, Priority: NOW, Start date: 05/02/19 14:09:00 CDT, Stop date: 05/02/19 14:09:00 CDT sugammadex No Notes: Memor ia 05-02 (Same as: l 18:49: Bridion) sugammadex No Route: IV, M emoria (ANES) 05-02 Drug form: l 18:40: SOLN, ONCE, Stop date: 05/02/19 13:40:00 CDT lidocaine No Route: IV, Me moria (ANES) 05-02 Drug form: l 18:40: INJ, ONCE, Stop date: 05/02/19 13:40:00 CDT propofol No Route: IV, Mem oria (ANES) 05-02 Drug form: l 18:40: INJ, ONCE, Stop date: 05/02/19 13:40:00 CDT rocuronium No Route: IV, M emoria (ANES) 05-02 Drug form: l 18:40: INJ, ONCE, Stop date: 05/02/19 13:40:00 CDT fentaNYL 2019-0 No Route: IV, Mem oria (ANES) 05-02 Drug form: l 18:40: INJ, ONCE, Stop date: 05/02/19 13:40:00 CDT Hydromorpho 2018-0 No 0.5 mg, Mem oria ne 05-02 Route: l 18:40: IVP, Hilton 00 Q5Min, Dosing Weight 71, kg, PRN Pain Score 7-10, Start date: 05/02/19 13:40:00 CDT, Duration: 4 doses or times, Stop date: Limited # of times Morphine 2018-0 No 4 mg, Memoria 05-02 Route: l 18:40: IVP, Hilton 00 Q5Min, Dosing Weight 71, kg, PRN Pain Score 7-10, Start date: 05/02/19 13:40:00 CDT, Duration: 3 doses or times, Stop date: Limited # of times ondansetron 2018-0 No Route: IV, Memoria (ANES) 05-02 Drug form: l 18:35: INJ, ONCE, Stop date: 05/02/19 13:35:00 CDT famotidine 2018-0 No Route: IV, M emoria (ANES) 05-02 Drug form: l 18:30: INJ, ONCE, Stop date: 05/02/19 13:30:00 CDT ceFAZolin 2018-0 No Route: IV, Me moria (ANES) 05-02 Drug form: l 18:30: INJ, ONCE, Stop date: 05/02/19 13:30:00 CDT dexamethaso 2018-0 No Route: IV, Memoria ne (ANES) 05-02 Drug form: l 18:30: INJ, ONCE, Stop date: 05/02/19 13:30:00 CDT phenylephri 2018-0 No Route: IV, Memoria ne (ANES) 05-02 Drug form: l 18:20: INJ, ONCE, Stop date: 05/02/19 13:20:00 CDT Morphine 2018-0 No 2 mg, Memoria 05-02 Route: l 18:15: IVP, Hilton 00 Q5Min, Dosing Weight 71, kg, PRN Pain Score 4-6, Start date: 05/02/19 13:15:00 CDT, Duration: 5 doses or times, Stop date: Limited # of times Flumazenil 2018-0 No 0.2 mg, Pradeep letty 05-02 Route: l 18:15: IVP, PRN, Dosing Weight 71, kg, PRN Benzodiaze pine Reversal, Initial dose, Start date: 05/02/19 13:15:00 CDT, Duration: 30 day, Stop date: 06/01/19 13:14:00 CDT Naloxone 2019-0 No 0.4 mg, Memori a 05-02 Route: l 18:15: IVP, Don 00 Q2MIN, Dosing Weight 71, kg, PRN Narcotic Reversal, Start date: 05/02/19 13:15:00 CDT, Duration: 8 doses or times, Stop date: Limited # of times Ondansetron 2018-0 No 4 mg, Memor ia 05-02 Route: l 18:15: IVP, ONCE, Dosing Weight 71, kg, PRN Nausea & Vomiting, Start date: 05/02/19 13:15:00 CDT Lactated 0 No Route: IV, Mem oria Ringers 05-02 Total l Injection 17:35: Volume: Imani nn IV (ANES) 00 1,000, 1000 mL Start date: 05/02/19 12:35:00 CDT, Stop date: 05/02/19 13:35:00 CDT saliva 2018-0 No Notes: Memoria substitutes 05-02 Same as l 15:55: Biotene Oral Balance Dry Mouth Benadryl 2018-0 No Notes: Memoria 05-02 (Same as: l 01:50: Benadryl) Benadryl 0 No 25 mg, Memoria 05-02 Route: PO, l 01:36: QID, Dosing Weight 71, kg, PRN Itching, Start date: 05/01/19 20:36:00 CDT, Duration: 30 day, Stop date: 05/31/19 20:35:00 CDT Adult 2019-0 No Notes: Memoria Parenteral 05-01 Central l Nutrition 23:00: line only Her padilla - Must use Central 1.2 micron (TPN) 2,000 filter AND mL Lipids should not be administer ed to patients who are allergic to soy, fish, egg or peanuts. Nystatin No Notes: Memoria [id number] 05-01 (Same l UNT/ML Oral 22:00: as:Mycosta Hilton Suspension 00 tin) Shake well. monofluorop No Notes: Pradeep letty hosphate 05-01 Same as l 22:00: Biotene Oral Balance Dry Mouth Protonix No Notes: For Mem oria 05-01 IV push l 21:30: reconstitu te with 10 ml 0.9% sodium chloride and push over 2 minutes. (Same as: Protonix) Albuterol No Notes: SEE Me moria 0.83 MG/ML 05-01 RT l Inhalant 19:07: DOCUMENTAT Her padilla Solution ION (Same as: Proventil) Magic No Notes: Memoria Mouthwash w 05-01 Benadryl l carafate 19:07: 1.25ml- Maikol n (Benadryl/L 00 Mylanta idocaine/Ma 1.25ml alox/Carafa -Lidocaine te) 1:1:1:1 Viscous 1.25ml - Carafate 1.25ml Dextrose No 12.5 gm, Memor ia 50% Syringe 05-01 25 mL, l 19:05: Route: IVP, Drug Form: INJ, Dosing Weight 71, kg, PRN, PRN Blood Glucose Results, Start date: 05/01/19 14:05:00 CDT, Duration: 30 day, Stop date: 05/31/19 14:04:00 CDT, 0 Glucagon No 1 mg, Memoria 05-01 Route: IM, l 19:05: Drug form: PDR/INJ, PRN, Dosing Weight 71, kg, PRN Blood Glucose Results, Start date: 05/01/19 14:05:00 CDT, Duration: 30 day, Stop date: 05/31/19 14:04:00 CDT, 0 Insulin No Notes: Memoria Lispro 05-01 (Same as: l 19:05: Humalog) Roll in palms of hands gently; Do not shake vigorously . WASTE: F/P - Black; E - Municipal Trash Bin Stable for 28 days at room temperatur e. Expires in days from ____Date Dextrose 20190 No 12.5 gm, Memor ia 50% Syringe 05-01 25 mL, l 18:46: Route: Don 00 IVP, Drug Form: INJ, Dosing Weight 71, kg, PRN, PRN Blood Glucose Results, Start date: 05/01/19 13:46:00 CDT, Duration: 30 day, Stop date: 05/31/19 13:45:00 CDT, 0 Glucagon No 1 mg, Memoria 05-01 Route: IM, l 18:46: Drug form: PDR/INJ, PRN, Dosing Weight 71, kg, PRN Blood Glucose Results, Start date: 05/01/19 13:46:00 CDT, Duration: 30 day, Stop date: 05/31/19 13:45:00 CDT, 0 Ondansetron 0 No Notes: Pradeep letty 05-01 (Same as: l 18:46: Zofran) MEDICATION WASTE Product Size: 4 mg Product Wasted: ___ mg Miralax 0 No Notes: Memoria 05-01 Dissolve l 15:35: in 8 oz of water or juice. (Same as: Miralax) Adult 0 No 2,000 mL, Memoria Parenteral 05-01 Rate: l Nutrition 03:00: Titrate, Herm chris Dosing Peripheral Weight (PPN not 71.818, TPN) 2000 kg, Route: mL IV, Total Volume: 2,000 mL, Start Date: 04/30/19 22:00:00 CDT, Duration: 24 hr, Stop date: 05/01/19 21:59:00 CDT, 0 Adult 2019-0 No Notes: Memoria Parenteral 05-01 Central l Nutrition 03:00: line only Her padilla Must use Central 1.2 micron (TPN) 2,000 filter AND mL Lipids should not be administer ed to patients who are allergic to soy, fish, egg or peanuts. Lubricant No Notes: Memori a Eye Drops 04-30 (Same as: l 23:26: Refresh Hilton 00 Plus) Atenolol No Notes: Memoria 04-30 (Same l 15:01: As:Tenormi Hilton 00 n) Saline No Notes: Memoria Flush 0.9% 04-30 (Same as: l 05:00: BD Hilton 00 Posiflush) Adult No Notes: Memoria Parenteral 04-30 Must use l Nutrition 03:00: 1.2 micron He rmann Custom - 00 filter AND Peripheral Lipids (PPN not should not TPN) 2,000 be mL administer ed to patients who are allergic to soy, fish, egg or peanuts. Fluticasone No Notes: Pradeep letty propionate 04-30 (Same as: l 0.05 02:00: Flonase) Don MG/ACTUAT 00 Metered Dose Nasal [place] [Flonase] Lidocaine No 5 mL, Memoria Hydrochlori 04-30 Route: l de 10 MG/ML 01:00: INTRADERM, Hilton Injectable 00 Dosing Solution Weight 71.818, kg, ONCALL, For PICC line insertion. , Start date: 04/29/19 20:00:00 CDT, Duration: 30 day, Stop date: 05/29/19 19:59:00 CDT Saline No Notes: Memoria Flush 0.9% 04-30 (Same as: l 00:07: BD Don 00 Posiflush) ketOROLAC No 4 days Memor ia 30 mg/mL 04-29 l injectable 20:06: MEDICATION H ermann solution 00 WASTE Product Size: 30 mg Product Wasted: ___ mg Adult No Notes: Memoria Parenteral 04-28 Must use l Nutrition 23:00: 1.2 micron He rmann Custom - 00 filter AND Peripheral Lipids (PPN not should not TPN) 2,000 be mL administer ed to patients who are allergic to soy, fish, egg or peanuts. BD Normal No Notes: Memori a Saline 04-28 (Same as: l Flush 21:30: BD Don 00 Posiflush) Benadryl 2019-0 No Notes: Memoria -05 (Same as: l 19:47: Benadryl) Don Calcium 2019-0 No 500 mL, Memoria Chloride 04-28 Rate: 75 l 0.0014 01:00: ml/hr, Hilton MEQ/ML / 00 Infuse Potassium over: 6.7 Chloride hr, Route: 0.004 IV, Dosing MEQ/ML / Weight Sodium 71.818 kg, Chloride Total 0.103 Volume: MEQ/ML / 500, Start Sodium date: Lactate 04/27/19 0.028 20:00:00 MEQ/ML CDT, Injectable Duration: Solution 1 doses or times, Stop date: 04/28/19 2:41:00 CDT, 1.83, m2 Calcium 2018-0 No 500 mL, Memoria Chloride - 250 ml/hr, l 0.0014 23:00: Route: IV, Imani nn MEQ/ML / 00 ONCE, Potassium Dosing Chloride Weight 0.004 71.818 kg, MEQ/ML / Start Sodium date: Chloride 04/27/19 0.103 18:00:00 MEQ/ML / CDT, Stop Sodium date: Lactate 04/27/19 0.028 18:00:00 MEQ/ML CDT Injectable Solution normal 2018-0 No 500 mL, Memoria saline 0.9% 04-27 Rate: 250 l IV 500 mL 23:00: ml/hr, Maikol n 00 Infuse over: 2 hr, Route: IV, Dosing Weight 71.818 kg, Total Volume: 500, Start date: 04/27/19 18:00:00 CDT, Duration: 1 doses or times, Stop date: 04/27/19 19:59:00 CDT, 1.83, m2, 0 Adult 2019-0 No 2,000 mL, Memoria Parenteral 04-27 Rate: 83.3 l Nutrition 23:00: ml/hr, Maikol n Standard - 00 Infuse Peripheral over: 24 (PPN not hr, Dosing TPN) 2000 Weight mL 71.818, kg, Route: IV, Total Volume: 2,000 mL, Start Date: 04/27/19 18:00:00 CDT, Duration: 24 hr, Stop date: 04/28/19 17:59:00 CDT, 0 Adult 2019-0 No Notes: Memoria Parenteral - Must use l Nutrition 23:00: 1.2 micron He rmann Custom - 00 filter AND Peripheral Lipids (PPN not should not TPN) 1 mL be administer ed to patients who are allergic to soy, fish, egg or peanuts. Potassium No Notes: Memori a Chloride - Infuse at l 15:00: a rate of Hilton 00 10 mEq/hr. (Same as: KCL) Adult 2019 No Notes: Memoria Parenteral - Must use l Nutrition 03:00: 1.2 micron He rmann Standard - 00 filter AND Peripheral Lipids (PPN not should not TPN) 2,000 be mL administer ed to patients who are allergic to soy, fish, egg or peanuts. Dextrose 5% No 1,000 mL, Jazmine howell with 0.45% 04-27 Rate: 100 l NaCl IV 00:16: ml/hr, Don 1,000 mL 00 Infuse over: 10 hr, Route: IV, Dosing Weight 71.818 kg, Total Volume: 1,000, Start date: 04/26/19 19:16:00 CDT, Duration: 30 day, Stop date: 05/26/19 19:15:00 CDT, 1.83, m2, 0 Fleet Enema 20190 No 12 years, Memoria 04-26 Pediatric l 23:06: Dosing, 0 Hilton 00 Calcium 20190 No 500 mL, Memoria Chloride 04-26 500 ml/hr, l 0.0014 16:53: Infuse Don MEQ/ML / 00 Over: 1 Potassium hr, Route: Chloride IV, 500, 0.004 Drug form: MEQ/ML / INJ, ONCE, Sodium Priority: Chloride STAT, 0.103 Dosing MEQ/ML / Weight Sodium 71.818 kg, Lactate Start 0.028 date: MEQ/ML 04/26/19 Injectable 11:53:00 Solution CDT, Stop date: 04/26/19 11:53:00 CDT, 0 potassium 0 No Notes: Memori a chloride - Infuse at l 16:00: a rate of Hilton 00 10 mEq/hr. (Same as: KCL) Potassium No 20 mEq, Memor ia Chloride 04-26 Route: IV, l 15:17: ONCE, Hilton 00 Dosing Weight 71.818, kg, Start date: 04/26/19 10:17:00 CDT, Stop date: 04/26/19 10:17:00 CDT Adult 2019 No Notes: Memoria Parenteral 04-26 Must use l Nutrition 03:00: 1.2 micron He rmann Standard - 00 filter AND Peripheral Lipids (PPN not should not TPN) 2,000 be mL administer ed to patients who are allergic to soy, fish, egg or peanuts. Adult 2019 No 2,000 mL, Memoria Parenteral 04-25 Rate: 83.3 l Nutrition 03:00: ml/hr, Maikol n Standard - 00 Infuse Peripheral over: 24 (PPN not hr, Dosing TPN) 2,000 Weight mL 71.818, kg, Route: IV, Total Volume: 2,000 mL, Start Date: 04/24/19 22:00:00 CDT, Duration: 24 hr, Stop date: 04/25/19 21:59:00 CDT, Replace Every: 24 hr, 0 Bisacodyl No Notes: Memori a 04-25 (Same As: l 01:00: Dulcolax, Bisco-Lax) Adult No 1,000 mL, Memoria Parenteral 04-24 Rate: 41.7 l Nutrition 03:00: ml/hr, Maikol n Standard - 00 Infuse Peripheral over: 24 (PPN not hr, Dosing TPN) 1,000 Weight mL 71.818, kg, Route: IV, Total Volume: 1,000 mL, Start Date: 04/23/19 22:00:00 CDT, Duration: 24 hr, Stop date: 04/24/19 21:59:00 CDT, Replace Every: 24 hr, 0 heparin No Notes: Memoria 04-24 porcine l 03:00: heparin pantoprazol No Notes: For Memoria e 04-24 IV push l 00:13: reconstitu te with 10 ml 0.9% sodium chloride and push over 2 minutes. (Same as: Protonix) Magnesium No Notes: Memori a Sulfate 04-23 WASTE: F/P l 23:24: - Sink; E - Municipal Trash Bin potassium No Notes: Memori a phosphate 04-23 (Same as: l 21:42: K Phosphate. ) Do not infuse phosphorou s concurrent ly in the same line as TPN or IVF that contains calcium. For double lumen central lines, phosphorou s may be infused in a separate lumen from TPN. 1 mMol phoshate has 1.47 mEq potassium Infuse over 4 hours potassium No 18 mmol, Pradeep letty phosphate 04-23 Route: l 21:25: IVPB, Don 00 ONCE, Dosing Weight 71.818, kg, Start date: 04/23/19 16:25:00 CDT, Stop date: 04/23/19 16:25:00 CDT Ketorolac No 4 days Memor ia 04-23 l 20:57: MEDICATION Don 00 WASTE Product Size: 30 mg Product Wasted: ___ mg Magic No 5 mL, Memoria Mouthwash w 04-23 Route: l nystatin 18:00: S&SPITMaikol (Benadryl/L 00 Drug Form: idocaine/Ma SUSP, alox/Nystat Dosing in) 1:1:1:1 Weight 71.818, kg, TID, Start date: 04/23/19 13:00:00 CDT, Duration: 30 day, Stop date: 05/23/19 8:30:00 CDT, 0 Ketorolac 0 No 4 days Memor ia 04-23 l 17:59: MEDICATION Hilton 00 WASTE Product Size: 30 mg Product Wasted: ___ mg Acetaminoph No Notes: Max Memoria en 04-23 acetaminop l 17:59: hen = 4000 Don mg/day (4 gm/day). (Same as: Tylenol) Magic No 5 mL, Memoria Mouthwash 04-23 Route: l (Benadryl/L 17:58: S&SPITHer padilla idocaine/Ma 00 Dosing alox/) Weight 1:1:1 71.818, kg, Q4H, PRN Mouth Pain, Start date: 04/23/19 12:58:00 CDT, Duration: 30 day, Stop date: 05/23/19 12:57:00 CDT morphine 2018- No 4 mg, 2 Memori a 0.5 mg/mL 8-31 mL, Route: l preservativ 04:26: IVP, Drug H ermann e-free 00 form: injectable SOLN, solution ONCE, Dosing Weight 71.818, kg, Start date: 04/22/19 23:26:00 CDT, Stop date: 04/22/19 23:26:00 CDT, 0 Protonix 2018-0 No Notes: Memoria 8-31 Tablet l 02:00: should not Hilton 00 be chewed or crushed. (Same as: Protonix) Prevacid No Notes: Memoria 8-31 Take 1 l 02:00: hour Don 00 before or 2 hours after meal; Expires in 14 days. Shake well before use. (Same as:Prevaci d) Compound ed Product - formulatio n not commercial ly available* * Nystatin No Notes: Memoria [id number] 8-31 (Same l UNT/ML Oral 02:00: as:Mycosta Hilton Suspension 00 tin) Shake well. Omeprazole No 40 mg, Memor ia 8 Route: PO, l 02:00: Drug form: Odn 00 DRC, BID, Dosing Weight 73.6, kg, Start date: 04/22/19 21:00:00 CDT, Duration: 30 day, Stop date: 05/22/19 8:30:00 CDT normal 20190 No 1,000 mL, Memori a saline 0.9% 8-31 Rate: 125 l IV 1,000 mL 01:43: ml/hr, Herm chris 00 Infuse over: 8 hr, Route: IV, Dosing Weight 71.818 kg, Total Volume: 1,000, Start date: 04/22/19 20:43:00 CDT, Duration: 2 day, Stop date: 04/24/19 20:42:00 CDT, 1.83, m2, 0 Ibuprofen 2019 No Notes: Memori a 20 MG/ML 8-31 (Same as: l Oral 00:18: Motrin Don Suspension 00 Children's , Advil Children's ) Take with food. Acetaminoph No Notes: Do M emoria en 325 MG 04-22 not exceed l Oral Tablet 23:23: 4 gm/day. H ermann (Same as: Tylenol) Albuterol No Notes: SEE Me moria 0.83 MG/ML 04-22 RT l Inhalant 23:23: DOCUMENTAT Her padilla Solution 00 ION (Same as: Proventil) Calcium No Notes: Memoria Carbonate 04-22 (Same As: l 500 MG 23:23: Tums) Don Chewable 00 Calcium Tablet Carbonate 500 mg = 200 mg elemental calcium Dose = mg calcium carbonate ( mg elemental calcium) Magic No 10 mL, Memoria Mouthwash w 04-22 Route: l carafate 23:23: S&SPITMaikol (Benadryl/L 00 Drug Form: idocaine/Ma SUSP, alox/Carafa Dosing te) 1:1:1:1 Weight 73.6, kg, Q4H, PRN Sore Throat, Start date: 04/22/19 18:23:00 CDT, Duration: 60 day, Stop date: 06/21/19 18:22:00 CDT, 0 monofluorop No Notes: Pradeep letty hosphate 04-22 Same as: l 23:23: Biotene with Calcium Acetaminoph No Notes: Do M emoria en 04-22 not exceed l 23:20: 4 gm/day. Hilton (Same as: Tylenol) Bisacodyl No Notes: Memori a 04-22 (Same As: l 23:20: Dulcolax, Bisco-Lax) Saline No Notes: Memoria Flush 0.9% 04-22 (Same as: l 23:20: BD Posiflush) Midazolam No Notes: Memori a 04-22 (Same l 23:20: as:Versed) Levetiracet No Notes: Pradeep letty am 04-22 Same as l 23:20: Keppra Mix with 100 mL NS, LR or D5W MEDICATION WASTE Product Size: 500 mg Product Wasted: ___ mg heparin 2019- Yes 5,000 Memoria 8-30 unit, l 21:42: SUB-Q, Hilton 00 Q8H, 0 Refill(s) Acetaminoph 2019 Yes 100.4 F, M emoria en 325 MG 8-30 X 10 day, l Oral Tablet 20:29: # 30 tab, H ermann 00 0 Refill(s), other Albuterol 2019- Yes NEB, RQ4H, Me moria 0.83 MG/ML 8-30 PRN l Inhalant 20:29: Wheezing, Herm chris Solution 00 Pediatric Dosing, 0 Refill(s) Calcium 2019- Yes 500 mg = 1 Pradeep letty Carbonate 8-30 tab, CHEW, l 500 MG 20:29: TID, PRN Hilton Chewable 00 Indigestio Tablet n, 0 Refill(s) Magic Yes 10 mL, Memoria Mouthwash w 8-30 S&SPIT, l carafate 20:29: Q4H, PRN Imani nn (Benadryl/L 00 Sore idocaine/Ma Throat, 0 alox/Carafa Refill(s) te) 1:1:1:1 Nystatin 2019- Yes 500,000 Memori a [id number] 8-30 unit = 5 l UNT/ML Oral 20:29: mL, Swab He rmann Suspension 00 Mouth, BID, 0 Refill(s) saliva 2019- Yes 0.5 inch, Memori a substitutes 8-30 BUC, QID, l oral gel 20:29: 0 Don 00 Refill(s) Diazepam 2 2019- Yes 2 mg = 1 Mem oria MG Oral 8-30 tab, NG, l Tablet 20:29: BID, PRN Don [Valium] 00 as needed for anxiety, X 30 day, # 24 tab, 0 Refill(s), other Nystatin 2019- No 500,000 Memori a [id number] 8-30 unit, 5 l UNT/ML Oral 14:00: mL, Route: Hilton Suspension 00 Swab Mouth, Drug form: SUSP, BID, Dosing Weight 73.6, kg, Start date: 04/22/19 9:00:00 CDT, Duration: 30 day, Stop date: 05/21/19 17:00:00 CDT, 0 phenol 2018-0 No Notes: [facility] 04-22 Chlorasept l 07:20: ic [place] (Same as: Chlorasept ic, Sore Throat [place]) WASTE: F/P - Black; E - Municipal Trash Bin saliva No 1 appl, [facility] substitutes 04-22 Route: l 03:30: BUC, Drug Form: GEL, QID, Start date: 04/21/19 22:30:00 CDT, Duration: 30 day, Stop date: 05/21/19 21:00:00 CDT, 0 monofluorop No 1 appl, [facility] hosphate 04-22 Route: l 02:00: BUC, Drug Form: SOLN, Dosing Weight 73.6, kg, QID, Start date: 04/21/19 21:00:00 CDT, Duration: 30 day, Stop date: 05/21/19 17:00:00 CDT, 0 Valium No Notes: [facility] 04-21 WASTE: F/P l 20:22: - Black; E - White/Blue heparin No Notes: [facility] 04-20 porcine l 21:00: heparin Protonix No 40 mg, [facility] 04-20 Route: l 03:08: IVP, Drug form: INJ, BID, Dosing Weight 73.6, kg, Start date: 04/19/19 22:08:00 CDT, Duration: 30 day, Stop date: 05/19/19 17:00:00 CDT, 0 Acetaminoph No Notes: [facility] en 04-20 MEDICATION l 01:10: WASTE Product Size: 1000 mg Product Wasted: ___ mg Isolyte S No 1,000 mL, [facility] PH 7.4 04-20 Rate: 100 l 1,000 mL 01:08: ml/hr, Infuse over: 10 hr, Route: IV, Dosing Weight 73.6 kg, Total Volume: 1,000, Start date: 04/19/19 20:08:00 CDT, Duration: 30 day, Stop date: 05/19/19 20:07:00 CDT, 1.86, m2, 0 Dextrose No 12.5 gm, [facility] 50% Syringe 04-20 25 mL, l 00:22: Route: [place] 00 IVP, Drug Form: INJ, Dosing Weight 73.6, kg, PRN, PRN Blood Glucose Results, Start date: 04/19/19 19:22:00 CDT, Duration: 30 day, Stop date: 05/19/19 19:21:00 CDT, 0 Glucagon No 1 mg, [facility] 04-20 Route: IM, l 00:22: Drug form: PDR/INJ, PRN, Dosing Weight 73.6, kg, PRN Blood Glucose Results, Start date: 04/19/19 19:22:00 CDT, Duration: 30 day, Stop date: 05/19/19 19:21:00 CDT, 0 Docusate No Notes: [facility] 04-20 (Same as: l 00:22: Colace) (Do Not Crush) sennosides, No Notes: Pradeep letty [facility] 04-20 (Same as: l 00:22: Senokot) POLYETHYLEN No Notes: Pradeep letty E GLYCOL 04-20 Dissolve l 3350 00:22: in 8 oz of water or juice. (Same as: Miralax) Bisacodyl No Notes: [facility] a 04-20 (Same As: l 00:22: Dulcolax, Bisco-Lax) Ondansetron No Notes: Pradeep letty 04-20 (Same as: l 00:22: Zofran) MEDICATION WASTE Product Size: 4 mg Product Wasted: ___ mg Melatonin No Notes: [facility] a 04-20 (Same as: l 00:22: Melatonin) Acetaminoph No Notes: Do M emoria en 04-20 not exceed l 00:22: 4 gm/day. (Same as: Tylenol) Compazine No Notes: [facility] a 04-20 (Same as: l 00:22: Compazine) Acetaminoph No Notes: Pradeep letty en 325 MG / 04-20 (Same as: l Hydrocodone 00:22: [place] Imani nn Bitartrate 00 325/5) Do 5 MG Oral not exceed Tablet 4gm/day of [[place] acetaminop 5/325] hen. Dilaudid No Notes: [facility] 04-20 Same as l 00:22: Dilaudid Dno 00 Robitussin No Notes: [facility] ia DM 04-20 (dextromet l 00:22: horphan-gu [place] aifenesin 10-100mg/5 ml 10 ml oral SOLN ud) (Same as: Robitussin DM) Lubricant No Notes: [facility] a Eye Drops 04-20 (Same as: l ophthalmic 00:22: Aquasite) He rmann solution 00 Naproxen No Notes: [facility] 04-20 (Same as: l 00:22: Naprosyn) Don 00 Take with food. Nasal No Notes: [facility] Saline 04-20 (Same as: l 0.65% 00:22: [place], [place] solution Deep Sea Nasal [place]). Benadryl No 1 appl, [facility] a Maximum 04-20 Route: l Strength 2% 00:22: TOP, QID, H ermann topical 00 Drug form: cream CRM, PRN as needed for itching, Start date: 04/19/19 19:22:00 CDT, Duration: 30 day, Stop date: 05/19/19 19:21:00 CDT, 0 Tums No Notes: [facility] 04-20 (Same As: l 00:22: Tums) Don 00 Calcium Carbonate 500 mg = 200 mg elemental calcium Dose = mg calcium carbonate ( mg elemental calcium) Benzocaine No Notes: [facility] ia 15 MG / 04-20 Cepacol l Menthol 3.6 00:22: lozenges He rmann MG Lozenge 00 Dispense 1 [Cepacol box = 16 Sore Throat lozenges Pain Relief (Same As: 15/3.6] Cepacol Lozenges) Fluticasone No Notes: Pradeep letty propionate 04-20 (Same as: l 0.05 00:22: Flonase) Hilton MG/ACTUAT 00 Metered Dose Nasal [place] [Flonase] Lanolin No Notes: [facility] 0.157 MG/MG 04-20 (Same as: l / Menthol 00:22: Calmosepti He rmann 0.0044 00 ne) MG/MG / Petrolatum 0.24 MG/MG / Zinc Oxide 0.206 MG/MG Topical Ointment [Calmosepti ne] Albuterol No Notes: SEE Me moria 0.83 MG/ML 04-20 RT l Inhalant 00:22: DOCUMENTAT Her padilla Solution 00 ION (Same as: Proventil) Cetirizine No Notes: [facility] 04-20 (Same As: l 00:22: Zyrtec) [place] 00 Allantoin No Notes: [facility] a 0.01 MG/MG 04-20 Same as: l / Camphor 00:22: Blistex Imani nn 0.005 MG/MG 00 / phenol 0.005 MG/MG Topical Ointment [Blistex] Aquaphor No 1 appl, [facility] a 04-20 Route: l 00:22: TOP, Q4H, Don 00 Drug form: OINT, PRN as needed for dry skin, Start date: 04/19/19 19:22:00 CDT, Duration: 30 day, Stop date: 05/19/19 19:21:00 CDT, 0 Magic No 10 mL, [facility] Mouthwash w 04-20 Route: l carafate 00:22: S&Maikol ARMSTRONG (Benadryl/L 00 Drug Form: idocaine/Ma SUSP, alox/Carafa Dosing te) 1:1:1:1 Weight 73.6, kg, Q4H, PRN Sore Throat, Start date: 04/19/19 19:22:00 CDT, Duration: 30 day, Stop date: 05/19/19 19:21:00 CDT, 0 omeprazole Yes 40 mg = 1 Me moria 40 mg oral 04-19 cap, PO, l delayed 18:42: Daily, # Maikol n release 00 30 cap, 0 capsule Refill(s) Botulinum 2019-0 No 400 unit, Mem o[facility] Toxin Type 7-24 Route: IM, l A 15:00: Yolanda CARLOS Dosing Weight 77.273, kg, Start date: 03/16/19 10:00:00 CDT, Duration: 30 day, Stop date: 04/15/19 9:59:00 CDT Botulinum 2019-0 No 300 unit, Mem [facility] Toxin Type 4-24 Route: IM, l A 17:00: ONCYolanda STEWART Dosing Weight 81.818, kg, Start date: 12/15/18 12:00:00 CDT, Duration: 30 day, Stop date: 01/14/19 11:59:00 CDT baclofen 10 2018-0 Yes 10 mg = 1 M emoria mg oral 4-09 tab, PO, l tablet 16:36: Bedtime, # Imani nn 00 30 tab, 2 Refill(s), Pharmacy: [id number] fluconazole 2019-0 Yes 100 mg = 1 [facility] 100 mg oral -09 tab, PO, l tablet 15:54: Every [place] 00 Thursday and ursodiol 2018- Yes 300 mg = 1 [facility] 300 mg oral 4-09 cap, PO, l capsule 15:54: BID dexlansopra 2018-0 Yes 60 mg = 1 M emoria zole 60 MG 4-09 cap, PO, l Enteric 15:54: Daily Don Capsule [Dexilant] tinidazole 2018- Yes 2,000 mg = M emoria 500 mg oral - 4 tab, PO, l tablet 15:54: BID Non-Formula 2018- Yes See [facility] a ry Home 11-30 Instructio l Medication 15:54: ns, IVIG Her padilla 00 every other Thursday cefTRIAXone 2018-0 Yes 2 gm, IV, M emoria 2 g 4-09 Every 12 l intravenous 15:54: hours on He rmann injection 00 Thursday, Thursday, and Thursday DEXILANT 60 2016-08 Yes TAKE ONE Me [facility] mg capsule 2-[address] 00[facility]: [facility] 00 EVERY DAY l DEXILANT 60 2016-08 Yes TAKE ONE [facility] mg capsule 2-[address] 00:00: MOUTH [facility] 00 EVERY DAY l DEXILANT 60 2016-08 Yes TAKE ONE [facility] mg capsule 2-[address] 00:00: MOUTH [facility] 00 EVERY DAY l DEXILANT 60 2016-08 Yes TAKE ONE [facility] mg capsule 2-[address] 00:00: [facility]OUTH [facility] 00 EVERY DAY l b complex 2017- Yes 1{tbl} QD Take 1 [facility] vitamins (B -[address] COMPLEX 1) 16:29: mouth Hospit a tablet 48 daily. l folic acid Yes 1mg QD Take 1 mg [facility] (FOLVITE) [address] MG tablet 16:29: daily. Hospit a 48 l omega Yes Take by [facility] 3-dha-epa-f [address] hallie oil 16:29: Hospita (FISH OIL) 48 l 1,000 mg (120 mg-180 mg) capsule vitamin E Yes 1000U QD Take 1,000 M ethodi 1000 UNIT [address] capsule 16:29: mouth [facility] 48 daily. l melatonin 1 Yes Take by Met hodi mg tablet [address] 16:29: [facility]ospita 48 l ascorbic 2017- Yes 1000mg QD Take 1,000 M ethodi acid, 6-[address] vitamin C, 16:29: mouth Hospit a (vitamin C) 48 daily. l 1000 MG tablet TURMERIC Yes [facility] (CURCUMIN - st MISC) 16:29: Hospita 48 l cefTRIAXone 2017- Yes 2g QD Infuse 2 g [facility] 2 gram 01-[address] recon soln 16:29: venous Hospi ta 48 catheter l daily. azithromyci 2017 Yes 500mg Q24H Infuse 500 [facility] n 6-[address] (ZITHROMAX) 16:29: venous [facility] 500 mg/250 48 catheter l mL NS daily. M W F intravenou sly IMMUN GLOB 2017-0 Yes .5g/kg Infuse 0.5 [facility] G,IGG,/GLY/ 6-02 g/kg into st IGA OV50 16:29: a venous Hospi ta (IMMUNE 48 catheter l GLOBULIN, once. GAMUNEX-C,) Every 2 10 % weeks solution coenzyme Yes 100mg QD Take 100 [facility] Q10 100 mg 6-[address] capsule 16:29: mouth [facility] 48 daily. l RESVERATROL 2017 Yes 1200mg Take 1,200 [facility] ORAL 6-[address] 16:29: mouth. [facility]osp[facility] 48 l b complex 2017- Yes 1{tbl} QD Take 1 [facility] vitamins (B 6-[address] COMPLEX 1) 11:29: mouth Hospit a tablet 48 daily. l folic acid Yes 1mg QD Take 1 mg [facility] (FOLVITE) [address] MG tablet 11:29: daily. Hospit a 48 l omega 2017 Yes Take by [facility] 3-dha-epa-f [address] hallie oil 11:29: Hospita (FISH OIL) 48 l 1,000 mg (120 mg-180 mg) capsule vitamin E Yes 1000U QD Take 1,000 M ethodi 1000 UNIT [address] capsule 11:29: mouth [facility] 48 daily. l melatonin 1 Yes Take by Met hodi mg tablet [address] 11:29: [facility]ospita 48 l ascorbic 2017- Yes 1000mg QD Take 1,000 M ethodi acid, 6-[address] vitamin C, 11:29: mouth Hospit a (vitamin C) 48 daily. l 1000 MG tablet TURMERIC Yes [facility] (CURCUMIN 01-23 st MISC) 11:29: [facility]ospita 48 l cefTRIAXone 2017- Yes 2g QD Infuse 2 g [facility] 2 gram 01-[address] recon soln 11:29: venous Hospi ta 48 catheter l daily. azithromyci Yes 500mg Q24H Infuse 500 [facility] n 6-[address] (ZITHROMAX) 11:29: venous [facility] 500 mg/250 48 catheter l mL NS daily. M W F intravenou sly IMMUN GLOB 2017-0 Yes .5g/kg Infuse 0.5 [facility] G,IGG,/GLY/ 6-02 g/kg into st IGA OV50 11:29: a venous Hospi ta (IMMUNE 48 catheter l GLOBULIN, once. GAMUNEX-C,) Every 2 10 % weeks solution coenzyme Yes 100mg QD Take 100 [facility] Q10 100 mg 6-[address] capsule 11:29: mouth [facility] 48 daily. l RESVERATROL 2017 Yes 1200mg Take 1,200 [facility] ORAL 6-[address] 11:29: mouth. [facility] 48 l b complex 2017- Yes 1{tbl} QD Take 1 [facility] vitamins (B 6-[address] COMPLEX 1) 11:29: mouth Hospit a tablet 48 daily. l folic acid Yes 1mg QD Take 1 mg [facility] (FOLVITE) 1 01-[address] MG tablet 11:29: daily. Hospit a 48 l omega Yes Take by [facility] 3-dha-epa-f 01-[address] hallie oil 11:29: Hospita (FISH OIL) 48 l 1,000 mg (120 mg-180 mg) capsule vitamin E Yes 1000U QD Take 1,000 M ethodi 1000 UNIT [address] capsule 11:29: mouth [facility] 48 daily. l melatonin 1 Yes Take by Met hodi mg tablet [address] 11:29: Hospita 48 l ascorbic Yes 1000mg QD Take 1,000 M ethodi acid, 6-[address] vitamin C, 11:29: mouth Hospit a (vitamin C) 48 daily. l 1000 MG tablet TURMERIC Yes [facility] (CURCUMIN - st MISC) 11:29: Hospita 48 l cefTRIAXone Yes 2g QD Infuse 2 g [facility] 2 gram 01-[address] recon soln 11:29: venous Hospi ta 48 catheter l daily. azithromyci Yes 500mg Q24H Infuse 500 [facility] n 6-[address] (ZITHROMAX) 11:29: venous [facility] 500 mg/250 48 catheter l mL NS daily. M W F intravenou sly IMMUN GLOB Yes .5g/kg Infuse 0.5 [facility] G,IGG,/GLY/ 6-02 g/kg into st IGA OV50 11:29: a venous Hospi ta (IMMUNE 48 catheter l GLOBULIN, once. GAMUNEX-C,) Every 2 10 % weeks solution coenzyme Yes 100mg QD Take 100 [facility] Q10 100 mg 6-[address] capsule 11:29: mouth [facility] 48 daily. l RESVERATROL 2017- Yes 1200mg Take 1,200 [facility] ORAL 6-[address] 11:29: mouth. [facility]osp[facility] 48 l b complex 2017-0 Yes 1{tbl} QD Take 1 [facility] vitamins (B 6-[address] COMPLEX 1) 11:29: mouth Hospit a tablet 48 daily. l folic acid Yes 1mg QD Take 1 mg [facility] (FOLVITE) 1 01-[address] MG tablet 11:29: daily. Hospit a 48 l omega 2017- Yes Take by [facility] 3-dha-epa-f [address] hallie oil 11:29: Hospita (FISH OIL) 48 l 1,000 mg (120 mg-180 mg) capsule vitamin E Yes 1000U QD Take 1,000 M ethodi 1000 UNIT -[address] capsule 11:29: mouth [facility]osp[facility] 48 daily. l melatonin 1 Yes Take by Met hodi mg tablet [address] 11:29: Hospita 48 l ascorbic 2016- Yes 1000mg QD Take 1,000 M ethodi acid, 6-[address] vitamin C, 11:29: mouth Hospit a (vitamin C) 48 daily. l 1000 MG tablet TURMERIC Yes [facility] (CURCUMIN - st MISC) 11:29: Hospita 48 l cefTRIAXone 2016- Yes 2g QD Infuse 2 g [facility] 2 gram 01-[address] recon soln 11:29: venous Hospi ta 48 catheter l daily. azithromyci Yes 500mg Q24H Infuse 500 [facility] n 6-[address] (ZITHROMAX) 11:29: venous [facility] 500 mg/250 48 catheter l mL NS daily. M W F intravenou sly IMMUN GLOB 2017-0 Yes .5g/kg Infuse 0.5 [facility] G,IGG,/GLY/ 6-02 g/kg into st IGA OV50 11:29: a venous Hospi ta (IMMUNE 48 catheter l GLOBULIN, once. GAMUNEX-C,) Every 2 10 % weeks solution coenzyme Yes 100mg QD Take 100 [facility] Q10 100 mg 6-[address] capsule 11:29: mouth [facility]osp[facility] 48 daily. l RESVERATROL 2017-0 Yes 1200mg Take 1,200 [facility] ORAL 6-[address] 11:29: mouth. Hospita 48 l doxycycline 2017-0 Yes 100mg Q.5D Take 100 M ethodi (VIBRAMYCIN 5-[address] ) 100 MG 00:00: mouth 2 Hospit a capsule 00 (two) l times a day. doxycycline 2017-0 Yes 100mg Q.5D Take 100 M ethodi (VIBRAMYCIN 5-[address] ) 100 MG 00:00: mouth 2 Hospit a capsule 00 (two) l times a day. doxycycline 2017-0 Yes 100mg Q.5D Take 100 M ethodi (VIBRAMYCIN 5-[address] ) 100 MG 00:00: mouth 2 Hospit a capsule 00 (two) l times a day. doxycycline 2017-0 Yes 100mg Q.5D Take 100 M ethodi (VIBRAMYCIN 5-[address] ) 100 MG 00:00: mouth 2 Hospit a capsule 00 (two) l times a day. escitalopra 2017-0 Yes 20mg QD Take 20 mg [facility] (LEXAPRO) 4-[address] 20 MG 00:00: once Hospita tablet 00 daily. l escitalopra 2017-0 Yes 20mg QD Take 20 mg [facility] (LEXAPRO) 4-[address] 20 MG 00:00: once [facility]osp[facility] tablet 00 daily. l escitalopra 2017-0 Yes 20mg QD Take 20 mg [facility] (LEXAPRO) 4-[address] 20 MG 00:00: once [facility]osp[facility] tablet 00 daily. l escitalopra 2017-0 Yes 20mg QD Take 20 mg [facility] (LEXAPRO) 4-[address] 20 MG 00:00: once [facility]osp[facility] tablet 00 daily. l baclofen 10 baclofen 10 No baclofen [facility] mg tablet mg tablet 10 mg Medi will tablet benzonatate benzonatate No benzonatat [facility] 200 mg 200 mg e 200 mg Medical capsule capsule capsule TAKE 1 TAKE 1 TAKE 1 CAPSULE BY CAPSULE BY CAPSULE BY MOUTH THREE MOUTH THREE MOUTH TIMES A DAY TIMES A DAY THREE NEEDED NEEDED TIMES A FOR COUGH FOR COUGH DAY NEEDED FOR COUGH ceftriaxone ceftriaxone No ceftriaxon [facility] 2 gram 2 gram e 2 gram Medical solution solution solution for for for injection injection injection CEFTRIAXONE CEFTRIAXONE CEFTRIAXON 2GM MIXED 2GM MIXED E 2GM IN 100ML IN 100ML MIXED IN NS. INFUSE NS. INFUSE 100ML NS. 1 BAG 1 BAG INFUSE 1 INTRAVENOUS INTRAVENOUS BAG LY OVER LY OVER INTRAVENOU 30MIN FOR 30MIN FOR SLY OVER 4WKS 4WKS 30MIN FOR 4WKS cefuroxime cefuroxime No cefuroxime [facility] axetil 500 axetil 500 axetil 500 Medical mg tablet mg tablet mg tablet celecoxib celecoxib No celecoxib [facility] 200 mg 200 mg 200 mg Medical capsule capsule capsule cephalexin cephalexin No cephalexin [facility] 500 mg 500 mg 500 mg Medical capsule capsule capsule cholestyram cholestyram No cholestyra [facility] ine (with ine (with mine (with Medical sugar) 4 sugar) 4 sugar) 4 gram powder gram powder gram for susp in for susp in powder for a packet a packet susp in a packet citalopram citalopram No citalopram [facility] 10 mg 10 mg 10 mg Medical tablet tablet tablet clotrimazol clotrimazol No clotrimazo [facility] e 10 mg e 10 mg le 10 mg Medic al naz TAKE naz TAKE naz 1 TABLET BY 1 TABLET BY TAKE 1 MOUTH FOUR MOUTH FOUR TABLET BY TIMES A DAY TIMES A DAY MOUTH FOUR (SUCK ON (SUCK ON TIMES A TABLET IN TABLET IN DAY (SUCK YOUR MOUTH YOUR MOUTH ON TABLET UNTIL ITS UNTIL ITS IN YOUR DISSOLVED) DISSOLVED) MOUTH UNTIL ITS DISSOLVED) cyclobenzap cyclobenzap No cyclobenza [facility] rine 10 mg rine 10 mg prabhjot 10 Medical tablet tablet mg tablet dapsone 25 dapsone 25 No dapsone 25 [facility] mg tablet mg tablet mg tablet Medical Dexilant 60 Dexilant 60 No Dexilant [facility] mg capsule, mg capsule, 60 mg Medical delayed delayed capsule, release release delayed TAKE ONE TAKE ONE release CAPSULE BY CAPSULE BY TAKE ONE MOUTH EVERY MOUTH EVERY CAPSULE BY DAY DAY MOUTH EVERY DAY diclofenac diclofenac No diclofenac [facility] 1 % topical 1 % topical 1 % M edical gel APPLY gel APPLY topical TO AFFECTED TO AFFECTED gel APPLY AREA TWICE AREA TWICE TO A DAY A DAY AFFECTED NEEDED NEEDED AREA TWICE A DAY NEEDED diclofenac diclofenac No diclofenac [facility] 75 75 75 Medical mg-misopros mg-misopros mg-misopro candace 200 mcg candace 200 mcg stol 200 tablet,imme tablet,imme mcg diate,delay diate,delay tablet,imm ed release ed release ediate,del ayed release dicyclomine dicyclomine No dicyclomin [facility] 10 mg 10 mg e 10 mg Medical capsule capsule capsule TAKE 1 TO 2 TAKE 1 TO 2 TAKE 1 TO CAPSULES BY CAPSULES BY 2 CAPSULES MOUTH 4 MOUTH 4 BY MOUTH 4 TIMES A DAY TIMES A DAY TIMES A NEEDED NEEDED DAY FOR FOR NEEDED FOR ABDOMINAL ABDOMINAL ABDOMINAL SPASMS SPASMS SPASMS disulfiram disulfiram No disulfiram [facility] 250 mg 250 mg 250 mg Medical tablet TAKE tablet TAKE tablet 1/4 TABLET 1/4 TABLET TAKE 1/4 BY MOUTH BY MOUTH TABLET BY DAILY FOR 2 DAILY FOR 2 MOUTH WEEKS THEN WEEKS THEN DAILY FOR 1/2 TABLET 1/2 TABLET 2 WEEKS BY MOUTH BY MOUTH THEN 1/2 DAILY DAILY TABLET BY THEREAFTER THEREAFTER MOUTH DAILY THEREAFTER doxycycline doxycycline No doxycyclin [facility] hyclate 100 hyclate 100 e hyclate Medical mg capsule mg capsule 100 mg capsule dressing dressing No dressing Keerthi via change kit change kit change kit Medical (drs) (drs) (drs) epinephrine epinephrine No epinephrin [facility] 0.3 mg/0.3 0.3 mg/0.3 e 0.3 Me dical mL mL mg/0.3 mL injection, injection, injection, auto-inject auto-inject auto-injec or USE or USE tor USE DIRECTED DIRECTED DIRECTED FOR FOR FOR ANAPHYLAXIS ANAPHYLAXIS ANAPHYLAXI REACTION REACTION S REACTION erythromyci erythromyci No erythromyc [facility] n 250 mg n 250 mg in 250 mg Me dical tablet TAKE tablet TAKE tablet 1 TABLET BY 1 TABLET BY TAKE 1 MOUTH 3 MOUTH 3 TABLET BY TIMES A DAY TIMES A DAY MOUTH 3 NEEDED NEEDED TIMES A BEFORE BEFORE DAY MEALS MEALS NEEDED BEFORE MEALS escitalopra escitalopra No escitalopr [facility] m 10 mg m 10 mg am 10 mg Medic al tablet TAKE tablet TAKE tablet 1 TABLET BY 1 TABLET BY TAKE 1 MOUTH EVERY MOUTH EVERY TABLET BY DAY DAY MOUTH EVERY DAY escitalopra escitalopra No escitalopr [facility] m 20 mg m 20 mg am 20 mg Medic al tablet TAKE tablet TAKE tablet 1 TABLET BY 1 TABLET BY TAKE 1 MOUTH EVERY MOUTH EVERY TABLET BY DAY DAY MOUTH DIRECTED DIRECTED EVERY DAY DIRECTED esomeprazol esomeprazol No esomeprazo [facility] e magnesium e magnesium le M edical 40 mg 40 mg magnesium capsule,del capsule,del 40 mg ayed ayed capsule,de release release layed TAKE ONE TAKE ONE release CAPSULE BY CAPSULE BY TAKE ONE MOUTH EVERY MOUTH EVERY CAPSULE BY DAY DAY MOUTH EVERY DAY first-lanso first-lanso No first-lans [facility] prazole 3 prazole 3 oprazole 3 Medical mg/ml TAKE mg/ml TAKE mg/ml TAKE 20 MG (6.7 20 MG (6.7 20 MG (6.7 MILILITERS) MILILITERS) MILILITERS PER PEG PER PEG ) PER PEG TUBE ONCE TUBE ONCE TUBE ONCE DAILY FOR DAILY FOR DAILY FOR 90 DAYS 90 DAYS 90 DAYS first-lanso first-lanso No first-lans [facility] prazole prazole oprazole Medic al 3mg/ml heatehr 3mg/ml heather 3mg/ml heather fluconazole fluconazole No fluconazol [facility] 100 mg 100 mg e 100 mg Medical tablet tablet tablet Gamunex-C Gamunex-C No Gamunex-C [facility] 10 gram/100 10 gram/100 10 M edical mL (10 %) mL (10 %) gram/100 injection injection mL (10 %) solution solution injection solution Heparin Heparin No Heparin [facility] Lock Flush Lock Flush Lock Flush Medical (Porcine) (Porcine) (Porcine) (PF) 100 (PF) 100 (PF) 100 unit/mL unit/mL unit/mL intravenous intravenous intravenou syringe syringe s syringe FLUSH PER FLUSH PER FLUSH PER S.A.S.H S.A.S.H S.A.S.H PROTOCOL PROTOCOL PROTOCOL hydroxyzine hydroxyzine No hydroxyzin [facility] HCl 10 mg/5 HCl 10 mg/5 e HCl 10 Medical mL oral mL oral mg/5 mL solution solution oral TAKE 25 ML TAKE 25 ML solution BY MOUTH BY MOUTH TAKE 25 ML FOUR TIMES FOUR TIMES BY MOUTH NEEDED NEEDED FOUR TIMES FOR ITCH OR FOR ITCH OR NEEDED AT BEDTIME AT BEDTIME FOR ITCH FOR SLEEP FOR SLEEP OR AT BEDTIME FOR SLEEP ivermectin ivermectin No ivermectin [facility] 3 mg tablet 3 mg tablet 3 mg M edical TAKE 1 TAKE 1 tablet TABLET BY TABLET BY TAKE 1 MOUTH TWICE MOUTH TWICE TABLET BY A WEEK FOR A WEEK FOR MOUTH 8 WEEKS 8 WEEKS TWICE A WEEK FOR 8 WEEKS ketamine-ba ketamine-ba No ketamine-b [facility] sergio-cyclobe sergio-cyclobe aclo-cyclo Medical nz nz [place] 10%-2%-2% 10%-2%-2% 10%-2%-2% grams APPLY grams APPLY grams 2 TO 4 2 TO 4 APPLY 2 TO PUMPS TO PUMPS TO 4 PUMPS TO AFFECTED AFFECTED AFFECTED AREA 3 TO 4 AREA 3 TO 4 AREA 3 TO TIMES A DAY TIMES A DAY 4 TIMES A DAY lansoprazol lansoprazol No lansoprazo [facility] e heather e heather le heather Medical 3mg/ml 3mg/ml 3mg/ml magic mouth magic mouth No magic [facility] wash SWISH wash SWISH mouth wash Medical AND SPIT 5 AND SPIT 5 SWISH AND ML 3 TIMES ML 3 TIMES SPIT 5 ML A DAY A DAY 3 TIMES A DAY meloxicam meloxicam No meloxicam [facility] 15 mg 15 mg 15 mg Medical tablet tablet tablet methylpredn methylpredn No methylpred [facility] isolone 4 isolone 4 nisolone 4 Medical mg tablets mg tablets mg tablets in a dose in a dose in a dose pack TAKE 6 pack TAKE 6 pack TAKE TABLETS ON TABLETS ON 6 TABLETS DAY 1 DAY 1 ON DAY 1 DIRECTED ON DIRECTED ON PACKAGE AND PACKAGE AND DIRECTED DECREASE BY DECREASE BY ON PACKAGE 1 TAB EACH 1 TAB EACH AND DAY FOR A DAY FOR A DECREASE TOTAL OF 6 TOTAL OF 6 BY 1 TAB DAYS DAYS EACH DAY FOR A TOTAL OF 6 DAYS metoprolol metoprolol No metoprolol [facility] succinate succinate succinate Medical ER 50 mg ER 50 mg ER 50 mg tablet,exte tablet,exte tablet,ext nded nded ended release 24 release 24 release 24 hr TAKE 1 hr TAKE 1 hr TAKE 1 TABLET BY TABLET BY TABLET BY MOUTH EVERY MOUTH EVERY MOUTH DAY DAY EVERY DAY minocycline minocycline No minocyclin [facility] 100 mg 100 mg e 100 mg Medical capsule capsule capsule TAKE ONE TAKE ONE TAKE ONE CAPSULE BY CAPSULE BY CAPSULE BY MOUTH TWICE MOUTH TWICE MOUTH A DAY FOR 6 A DAY FOR 6 TWICE A WEEKS WEEKS DAY FOR 6 WEEKS mupirocin 2 mupirocin 2 No mupirocin [facility] % topical % topical 2 % Medic al ointment ointment topical ointment nitrofurant nitrofurant No nitrofuran [facility] oin oin toin Medical monohydrate monohydrate monohydrat /macrocryst /macrocryst e/macrocry als 100 mg als 100 mg stals 100 capsule capsule mg capsule nystatin nystatin No nystatin [facility] via 100,000 100,000 100,000 Medica l unit/mL unit/mL unit/mL oral oral oral suspension suspension suspension TAKE 5ML BY TAKE 5ML BY TAKE 5ML MOUTH TWICE MOUTH TWICE BY MOUTH A DAY A DAY TWICE A DAY omeprazole omeprazole No omeprazole [facility] 20 mg 20 mg 20 mg Medical capsule,del capsule,del capsule,de ayed ayed layed release release release TAKE 1 TAKE 1 TAKE 1 CAPSULE BY CAPSULE BY CAPSULE BY MOUTH TWICE MOUTH TWICE MOUTH A DAY A DAY TWICE A DAY omeprazole omeprazole No omeprazole [facility] 40 mg 40 mg 40 mg Medical capsule,del capsule,del capsule,de ayed ayed layed release release release TAKE 1 TAKE 1 TAKE 1 CAPSULE BY CAPSULE BY CAPSULE BY MOUTH EVERY MOUTH EVERY MOUTH DAY DAY EVERY DAY ondansetron ondansetron No ondansetro [facility] HCl 4 mg HCl 4 mg n HCl 4 mg M edical tablet tablet tablet DISSOLVE 1 DISSOLVE 1 DISSOLVE 1 TABLET BY TABLET BY TABLET BY MOUTH EVERY MOUTH EVERY MOUTH 4 HOURS 4 HOURS EVERY 4 NEEDED NEEDED HOURS NAUSEA NAUSEA NEEDED NAUSEA Prilosec 1 Prilosec 1 No Prilosec 1 [facility] capsule; 20 capsule; 20 capsule; Medical MG; Once a MG; Once a 20 MG; day day Once a day promethazin promethazin No promethazi [facility] e 25 mg e 25 mg ne 25 mg Medic al tablet TAKE tablet TAKE tablet 1 TO 2 1 TO 2 TAKE 1 TO TABLETS BY TABLETS BY 2 TABLETS MOUTH 4 MOUTH 4 BY MOUTH 4 TIMES A DAY TIMES A DAY TIMES A NEEDED NEEDED DAY FOR NAUSEA FOR NAUSEA NEEDED FOR NAUSEA rifampin rifampin No rifampin [facility] via 150 mg 150 mg 150 mg Medical capsule capsule capsule riluzole 50 riluzole 50 No riluzole [facility] mg tablet mg tablet 50 mg Medi will tablet scopolamine scopolamine No scopolamin [facility] 1 mg over 3 1 mg over 3 e 1 mg Medical days days over 3 transdermal transdermal days patch APPLY patch APPLY transderma 1 PATCH(ES) 1 PATCH(ES) l patch EVERY 72 EVERY 72 APPLY 1 HOURS BY HOURS BY PATCH(ES) TRANSDERMAL TRANSDERMAL EVERY 72 ROUTE ROUTE HOURS BY DIRECTED DIRECTED TRANSDERMA FOR 10 FOR 10 L ROUTE DAYS. DAYS. DIRECTED FOR 10 DAYS. sodium sodium No sodium [facility] chloride chloride chloride Med ical 0.9 % 0.9 % 0.9 % (flush) (flush) (flush) injection injection injection syringe syringe syringe FLUSH PER FLUSH PER FLUSH PER S.A.S.H S.A.S.H S.A.S.H PROTOCOL PROTOCOL PROTOCOL sodium sodium No sodium [facility] chloride chloride chloride Med ical 0.9 % 0.9 % 0.9 % intravenous intravenous intravenou solution solution s solution USE TO MIX USE TO MIX USE TO MIX CEFTRIAXONE CEFTRIAXONE CEFTRIAXON 2GM 2GM E 2GM sulfamethox sulfamethox No sulfametho [facility] azole 200 azole 200 xazole 200 Medical mg-trimetho mg-trimetho mg-trimeth prim 40 prim 40 oprim 40 mg/5 mL mg/5 mL mg/5 mL oral oral oral suspension suspension suspension GIVE 20 ML GIVE 20 ML GIVE 20 ML TWICE A DAY TWICE A DAY TWICE A FOR 7 DAYS FOR 7 DAYS DAY FOR 7 DAYS sulfamethox sulfamethox No sulfametho [facility] azole 800 azole 800 xazole 800 Medical mg-trimetho mg-trimetho mg-trimeth prim 160 mg prim 160 mg oprim 160 tablet TAKE tablet TAKE mg tablet 1 TABLET BY 1 TABLET BY TAKE 1 MOUTH MOUTH TABLET BY BEFORE BEFORE MOUTH BREAKFAST BREAKFAST BEFORE EVERY 12 EVERY 12 BREAKFAST HOURS HOURS EVERY 12 HOURS tinidazole tinidazole No tinidazole [facility] 250 mg 250 mg 250 mg Medical tablet tablet tablet tinidazole tinidazole No tinidazole [facility] 500 mg 500 mg 500 mg Medical tablet TAKE tablet TAKE tablet 1 TABLET BY 1 TABLET BY TAKE 1 MOUTH EVERY MOUTH EVERY TABLET BY DAY DAY MOUTH (THURSDAY, (THURSDAY, EVERY DAY THURSDAY, THURSDAY, (THURSDAY, THURSDAY) THURSDAY) THURSDAY, THURSDAY) trazodone trazodone No trazodone [facility] 100 mg 100 mg 100 mg Medical tablet TAKE tablet TAKE tablet 1 TABLET BY 1 TABLET BY TAKE 1 MOUTH AT MOUTH AT TABLET BY BEDTIME BEDTIME MOUTH AT BEDTIME trazodone trazodone No trazodone [facility] 50 mg 50 mg 50 mg Medical tablet tablet tablet triamcinolo triamcinolo No triamcinol [facility] ne ne one Medical acetonide acetonide acetonide 0.1 % 0.1 % 0.1 % topical topical topical cream cream cream ursodiol ursodiol No ursodiol [facility] via 300 mg 300 mg 300 mg Medical capsule capsule capsule TAKE ONE TAKE ONE TAKE ONE CAPSULE BY CAPSULE BY CAPSULE BY MOUTH TWICE MOUTH TWICE MOUTH A DAY A DAY TWICE A DAY Visine-AC Visine-AC No Visine-AC [facility] 0.05 %-0.25 0.05 %-0.25 0.05 M edical % eye drops % eye drops %-0.25 % INSTILL 1 INSTILL 1 eye drops DROP INTO DROP INTO INSTILL 1 BOTH EYES BOTH EYES DROP INTO EVERY 8 EVERY 8 BOTH EYES HOURS HOURS EVERY 8 NEEDED FOR NEEDED FOR HOURS ITCHY EYES ITCHY EYES NEEDED FOR ITCHY EYES zolpidem 10 zolpidem 10 No zolpidem [facility] mg tablet mg tablet 10 mg Medi will tablet acetaminoph acetaminoph No acetaminop [facility] en 300 en 300 hen 300 Medical mg-codeine mg-codeine mg-codeine 30 mg 30 mg 30 mg tablet tablet tablet alprazolam alprazolam No alprazolam [facility] 0.25 mg 0.25 mg 0.25 mg Medica l tablet TAKE tablet TAKE tablet 1 TABLET BY 1 TABLET BY TAKE 1 MOUTH EVERY MOUTH EVERY TABLET BY 12 HOURS 12 HOURS MOUTH NEEDED FOR NEEDED FOR EVERY 12 15 DAYS 15 DAYS HOURS NEEDED FOR 15 DAYS Amitiza 24 Amitiza 24 No Amitiza 24 [facility] mcg capsule mcg capsule mcg M edical capsule amoxicillin amoxicillin No amoxicilli [facility] 400 mg/5 mL 400 mg/5 mL n 400 mg/5 Medical oral oral mL oral suspension suspension suspension GIVE 11 ML GIVE 11 ML GIVE 11 ML VIA PEG VIA PEG VIA PEG TUBE TWICE TUBE TWICE TUBE TWICE A DAY FOR A DAY FOR A DAY FOR 10 DAYS 10 DAYS 10 DAYS amoxicillin amoxicillin No amoxicilli [facility] 500 mg 500 mg n 500 mg Medical capsule capsule capsule atenolol 25 atenolol 25 No atenolol [facility] mg tablet mg tablet 25 mg Medi will TAKE 1 TAKE 1 tablet TABLET BY TABLET BY TAKE 1 MOUTH EVERY MOUTH EVERY TABLET BY DAY DAY MOUTH EVERY DAY azithromyci azithromyci No azithromyc [facility] n 250 mg n 250 mg in 250 mg Me dical tablet tablet tablet azithromyci azithromyci No azithromyc [facility] n 500 mg n 500 mg in 500 mg Me dical intravenous intravenous intravenou solution solution s solution AZITHROMYCI AZITHROMYCI AZITHROMYC N 250MG N 250MG IN 250MG MIXED IN MIXED IN MIXED IN 100ML NS. 100ML NS. 100ML NS. INFUSE 1 INFUSE 1 INFUSE 1 BAG BAG BAG INTRAVENOUS INTRAVENOUS INTRAVENOU LY OVER 30 LY OVER 30 SLY OVER MIN EVERY MIN EVERY 30 MIN THURSDAY, THURSDAY, EVERY Thursday, AND THURSDAY AND Thursday AND THURSDAY baclofen 10 baclofen 10 No baclofen [facility] mg tablet mg tablet 10 mg Medi will tablet benzonatate benzonatate No benzonatat [facility] 200 mg 200 mg e 200 mg Medical capsule capsule capsule TAKE 1 TAKE 1 TAKE 1 CAPSULE BY CAPSULE BY CAPSULE BY MOUTH THREE MOUTH THREE MOUTH TIMES A DAY TIMES A DAY THREE NEEDED NEEDED TIMES A FOR COUGH FOR COUGH DAY NEEDED FOR COUGH ceftriaxone ceftriaxone No ceftriaxon [facility] 2 gram 2 gram e 2 gram Medical solution solution solution for for for injection injection injection CEFTRIAXONE CEFTRIAXONE CEFTRIAXON 2GM MIXED 2GM MIXED E 2GM IN 100ML IN 100ML MIXED IN NS. INFUSE NS. INFUSE 100ML NS. 1 BAG 1 BAG INFUSE 1 INTRAVENOUS INTRAVENOUS BAG LY OVER LY OVER INTRAVENOU 30MIN FOR 30MIN FOR SLY OVER 4WKS 4WKS 30MIN FOR 4WKS cefuroxime cefuroxime No cefuroxime [facility] axetil 500 axetil 500 axetil 500 Medical mg tablet mg tablet mg tablet celecoxib celecoxib No celecoxib [facility] 200 mg 200 mg 200 mg Medical capsule capsule capsule cephalexin cephalexin No cephalexin [facility] 500 mg 500 mg 500 mg Medical capsule capsule capsule cholestyram cholestyram No cholestyra [facility] ine (with ine (with mine (with Medical sugar) 4 sugar) 4 sugar) 4 gram powder gram powder gram for susp in for susp in powder for a packet a packet susp in a packet citalopram citalopram No citalopram [facility] 10 mg 10 mg 10 mg Medical tablet tablet tablet clotrimazol clotrimazol No clotrimazo [facility] e 10 mg e 10 mg le 10 mg Medic al naz TAKE naz TAKE naz 1 TABLET BY 1 TABLET BY TAKE 1 MOUTH FOUR MOUTH FOUR TABLET BY TIMES A DAY TIMES A DAY MOUTH FOUR (SUCK ON (SUCK ON TIMES A TABLET IN TABLET IN DAY (SUCK YOUR MOUTH YOUR MOUTH ON TABLET UNTIL ITS UNTIL ITS IN YOUR DISSOLVED) DISSOLVED) MOUTH UNTIL ITS DISSOLVED) cyclobenzap cyclobenzap No cyclobenza [facility] rine 10 mg rine 10 mg prabhjot 10 Medical tablet tablet mg tablet dapsone 25 dapsone 25 No dapsone 25 [facility] mg tablet mg tablet mg tablet Medical Dexilant 60 Dexilant 60 No Dexilant [facility] mg capsule, mg capsule, 60 mg Medical delayed delayed capsule, release release delayed TAKE ONE TAKE ONE release CAPSULE BY CAPSULE BY TAKE ONE MOUTH EVERY MOUTH EVERY CAPSULE BY DAY DAY MOUTH EVERY DAY diclofenac diclofenac No diclofenac [facility] 1 % topical 1 % topical 1 % M edical gel APPLY gel APPLY topical TO AFFECTED TO AFFECTED gel APPLY AREA TWICE AREA TWICE TO A DAY A DAY AFFECTED NEEDED NEEDED AREA TWICE A DAY NEEDED diclofenac diclofenac No diclofenac [facility] 75 75 75 Medical mg-misopros mg-misopros mg-misopro candace 200 mcg candace 200 mcg stol 200 tablet,imme tablet,imme mcg diate,delay diate,delay tablet,imm ed release ed release ediate,del ayed release dicyclomine dicyclomine No dicyclomin [facility] 10 mg 10 mg e 10 mg Medical capsule capsule capsule TAKE 1 TO 2 TAKE 1 TO 2 TAKE 1 TO CAPSULES BY CAPSULES BY 2 CAPSULES MOUTH 4 MOUTH 4 BY MOUTH 4 TIMES A DAY TIMES A DAY TIMES A NEEDED NEEDED DAY FOR FOR NEEDED FOR ABDOMINAL ABDOMINAL ABDOMINAL SPASMS SPASMS SPASMS disulfiram disulfiram No disulfiram [facility] 250 mg 250 mg 250 mg Medical tablet TAKE tablet TAKE tablet 1/4 TABLET 1/4 TABLET TAKE 1/4 BY MOUTH BY MOUTH TABLET BY DAILY FOR 2 DAILY FOR 2 MOUTH WEEKS THEN WEEKS THEN DAILY FOR 1/2 TABLET 1/2 TABLET 2 WEEKS BY MOUTH BY MOUTH THEN 1/2 DAILY DAILY TABLET BY THEREAFTER THEREAFTER MOUTH DAILY THEREAFTER doxycycline doxycycline No doxycyclin [facility] hyclate 100 hyclate 100 e hyclate Medical mg capsule mg capsule 100 mg capsule dressing dressing No dressing Keerthi via change kit change kit change kit Medical (drs) (drs) (drs) epinephrine epinephrine No epinephrin [facility] 0.3 mg/0.3 0.3 mg/0.3 e 0.3 Me dical mL mL mg/0.3 mL injection, injection, injection, auto-inject auto-inject auto-injec or USE or USE tor USE DIRECTED DIRECTED DIRECTED FOR FOR FOR ANAPHYLAXIS ANAPHYLAXIS ANAPHYLAXI REACTION REACTION S REACTION erythromyci erythromyci No erythromyc [facility] n 250 mg n 250 mg in 250 mg Me dical tablet TAKE tablet TAKE tablet 1 TABLET BY 1 TABLET BY TAKE 1 MOUTH 3 MOUTH 3 TABLET BY TIMES A DAY TIMES A DAY MOUTH 3 NEEDED NEEDED TIMES A BEFORE BEFORE DAY MEALS MEALS NEEDED BEFORE MEALS escitalopra escitalopra No escitalopr [facility] m 10 mg m 10 mg am 10 mg Medic al tablet TAKE tablet TAKE tablet 1 TABLET BY 1 TABLET BY TAKE 1 MOUTH EVERY MOUTH EVERY TABLET BY DAY DAY MOUTH EVERY DAY escitalopra escitalopra No escitalopr [facility] m 20 mg m 20 mg am 20 mg Medic al tablet TAKE tablet TAKE tablet 1 TABLET BY 1 TABLET BY TAKE 1 MOUTH EVERY MOUTH EVERY TABLET BY DAY DAY MOUTH DIRECTED DIRECTED EVERY DAY DIRECTED esomeprazol esomeprazol No esomeprazo [facility] e magnesium e magnesium le M edical 40 mg 40 mg magnesium capsule,del capsule,del 40 mg ayed ayed capsule,de release release layed TAKE ONE TAKE ONE release CAPSULE BY CAPSULE BY TAKE ONE MOUTH EVERY MOUTH EVERY CAPSULE BY DAY DAY MOUTH EVERY DAY first-lanso first-lanso No first-lans [facility] prazole 3 prazole 3 oprazole 3 Medical mg/ml TAKE mg/ml TAKE mg/ml TAKE 20 MG (6.7 20 MG (6.7 20 MG (6.7 MILILITERS) MILILITERS) MILILITERS PER PEG PER PEG ) PER PEG TUBE ONCE TUBE ONCE TUBE ONCE DAILY FOR DAILY FOR DAILY FOR 90 DAYS 90 DAYS 90 DAYS first-lanso first-lanso No first-lans [facility] prazole prazole oprazole Medic al 3mg/ml heather 3mg/ml heather 3mg/ml heather first-omepr first-omepr No first-omep [facility] a 2mg/ml a 2mg/ml ra 2mg/ml Me dical heather heather heather first-omepr first-omepr No first-omep [facility] azole azole razole Medical 2mg/ml susp 2mg/ml susp 2mg/ml 300ml TAKE 300ml TAKE susp 300ml 10 MLS BY 10 MLS BY TAKE 10 MOUTH DAILY MOUTH DAILY MLS BY MOUTH DAILY fluconazole fluconazole No fluconazol [facility] 100 mg 100 mg e 100 mg Medical tablet tablet tablet Gamunex-C Gamunex-C No Gamunex-C [facility] 10 gram/100 10 gram/100 10 M edical mL (10 %) mL (10 %) gram/100 injection injection mL (10 %) solution solution injection solution Heparin Heparin No Heparin [facility] Lock Flush Lock Flush Lock Flush Medical (Porcine) (Porcine) (Porcine) (PF) 100 (PF) 100 (PF) 100 unit/mL unit/mL unit/mL intravenous intravenous intravenou syringe syringe s syringe FLUSH PER FLUSH PER FLUSH PER S.A.S.H S.A.S.H S.A.S.H PROTOCOL PROTOCOL PROTOCOL hydroxyzine hydroxyzine No hydroxyzin [facility] HCl 10 mg/5 HCl 10 mg/5 e HCl 10 Medical mL oral mL oral mg/5 mL solution solution oral TAKE 25 ML TAKE 25 ML solution BY MOUTH BY MOUTH TAKE 25 ML FOUR TIMES FOUR TIMES BY MOUTH NEEDED NEEDED FOUR TIMES FOR ITCH OR FOR ITCH OR NEEDED AT BEDTIME AT BEDTIME FOR ITCH FOR SLEEP FOR SLEEP OR AT BEDTIME FOR SLEEP ivermectin ivermectin No ivermectin [facility] 3 mg tablet 3 mg tablet 3 mg M edical TAKE 1 TAKE 1 tablet TABLET BY TABLET BY TAKE 1 MOUTH TWICE MOUTH TWICE TABLET BY A WEEK FOR A WEEK FOR MOUTH 8 WEEKS 8 WEEKS TWICE A WEEK FOR 8 WEEKS ketamine-ba ketamine-ba No ketamine-b [facility] sergio-cyclobe sergio-cyclobe aclo-cyclo Medical [facility] 10%-2%-2% 10%-2%-2% 10%-2%-2% grams APPLY grams APPLY grams 2 TO 4 2 TO 4 APPLY 2 TO PUMPS TO PUMPS TO 4 PUMPS TO AFFECTED AFFECTED AFFECTED AREA 3 TO 4 AREA 3 TO 4 AREA 3 TO TIMES A DAY TIMES A DAY 4 TIMES A DAY lansoprazol lansoprazol No lansoprazo [facility] e 3mg/ml e 3mg/ml le 3mg/ml Me dical heather heather heather lansoprazol lansoprazol No lansoprazo [facility] e heather e heather le heather Medical 3mg/ml 3mg/ml 3mg/ml magic mouth magic mouth No magic [facility] wash SWISH wash SWISH mouth wash Medical AND SPIT 5 AND SPIT 5 SWISH AND ML 3 TIMES ML 3 TIMES SPIT 5 ML A DAY A DAY 3 TIMES A DAY meloxicam meloxicam No meloxicam [facility] 15 mg 15 mg 15 mg Medical tablet tablet tablet methylpredn methylpredn No methylpred [facility] isolone 4 isolone 4 nisolone 4 Medical mg tablets mg tablets mg tablets in a dose in a dose in a dose pack TAKE 6 pack TAKE 6 pack TAKE TABLETS ON TABLETS ON 6 TABLETS DAY 1 DAY 1 ON DAY 1 DIRECTED ON DIRECTED ON PACKAGE AND PACKAGE AND DIRECTED DECREASE BY DECREASE BY ON PACKAGE 1 TAB EACH 1 TAB EACH AND DAY FOR A DAY FOR A DECREASE TOTAL OF 6 TOTAL OF 6 BY 1 TAB DAYS DAYS EACH DAY FOR A TOTAL OF 6 DAYS metoprolol metoprolol No metoprolol [facility] succinate succinate succinate Medical ER 50 mg ER 50 mg ER 50 mg tablet,exte tablet,exte tablet,ext nded nded ended release 24 release 24 release 24 hr TAKE 1 hr TAKE 1 hr TAKE 1 TABLET BY TABLET BY TABLET BY MOUTH EVERY MOUTH EVERY MOUTH DAY DAY EVERY DAY minocycline minocycline No minocyclin [facility] 100 mg 100 mg e 100 mg Medical capsule capsule capsule TAKE ONE TAKE ONE TAKE ONE CAPSULE BY CAPSULE BY CAPSULE BY MOUTH TWICE MOUTH TWICE MOUTH A DAY FOR 6 A DAY FOR 6 TWICE A WEEKS WEEKS DAY FOR 6 WEEKS mupirocin 2 mupirocin 2 No mupirocin [facility] % topical % topical 2 % Medic al ointment ointment topical ointment nitrofurant nitrofurant No nitrofuran [facility] oin oin toin Medical monohydrate monohydrate monohydrat /macrocryst /macrocryst e/macrocry als 100 mg als 100 mg stals 100 capsule capsule mg capsule nystatin nystatin No nystatin [facility] via 100,000 100,000 100,000 Medica l unit/mL unit/mL unit/mL oral oral oral suspension suspension suspension TAKE 5ML BY TAKE 5ML BY TAKE 5ML MOUTH TWICE MOUTH TWICE BY MOUTH A DAY A DAY TWICE A DAY omeprazole omeprazole No omeprazole [facility] 20 mg 20 mg 20 mg Medical capsule,del capsule,del capsule,de ayed ayed layed release release release TAKE 1 TAKE 1 TAKE 1 CAPSULE BY CAPSULE BY CAPSULE BY MOUTH TWICE MOUTH TWICE MOUTH A DAY A DAY TWICE A DAY omeprazole omeprazole No omeprazole [facility] 40 mg 40 mg 40 mg Medical capsule,del capsule,del capsule,de ayed ayed layed release release release TAKE 1 TAKE 1 TAKE 1 CAPSULE BY CAPSULE BY CAPSULE BY MOUTH EVERY MOUTH EVERY MOUTH DAY DAY EVERY DAY ondansetron ondansetron No ondansetro [facility] HCl 4 mg HCl 4 mg n HCl 4 mg M edical tablet tablet tablet DISSOLVE 1 DISSOLVE 1 DISSOLVE 1 TABLET BY TABLET BY TABLET BY MOUTH EVERY MOUTH EVERY MOUTH 4 HOURS 4 HOURS EVERY 4 NEEDED NEEDED HOURS NAUSEA NAUSEA NEEDED NAUSEA Prilosec 1 Prilosec 1 No Prilosec 1 [facility] capsule; 20 capsule; 20 capsule; Medical MG; Once a MG; Once a 20 MG; day day Once a day Prilosec 10 Prilosec 10 No Prilosec [facility] mg oral mg oral 10 mg oral Med ical suspension, suspension, suspension delayed delayed ,delayed release release release TAKE 2 TAKE 2 TAKE 2 TEASPOONSFU TEASPOONSFU TEASPOONSF L BY MOUTH L BY MOUTH UL BY EVERY DAY. EVERY DAY. MOUTH STOP STOP EVERY DAY. LANSOPRAZOL LANSOPRAZOL STOP E E LANSOPRAZO LE promethazin promethazin No promethazi [facility] e 25 mg e 25 mg ne 25 mg Medic al tablet TAKE tablet TAKE tablet 1 TO 2 1 TO 2 TAKE 1 TO TABLETS BY TABLETS BY 2 TABLETS MOUTH 4 MOUTH 4 BY MOUTH 4 TIMES A DAY TIMES A DAY TIMES A NEEDED NEEDED DAY FOR NAUSEA FOR NAUSEA NEEDED FOR NAUSEA rifampin rifampin No rifampin [facility] via 150 mg 150 mg 150 mg Medical capsule capsule capsule riluzole 50 riluzole 50 No riluzole [facility] mg tablet mg tablet 50 mg Medi will tablet scopolamine scopolamine No scopolamin [facility] 1 mg over 3 1 mg over 3 e 1 mg Medical days days over 3 transdermal transdermal days patch APPLY patch APPLY transderma 1 PATCH(ES) 1 PATCH(ES) l patch EVERY 72 EVERY 72 APPLY 1 HOURS BY HOURS BY PATCH(ES) TRANSDERMAL TRANSDERMAL EVERY 72 ROUTE ROUTE HOURS BY DIRECTED DIRECTED TRANSDERMA FOR 10 FOR 10 L ROUTE DAYS. DAYS. DIRECTED FOR 10 DAYS. sodium sodium No sodium [facility] chloride chloride chloride Med ical 0.9 % 0.9 % 0.9 % (flush) (flush) (flush) injection injection injection syringe syringe syringe FLUSH PER FLUSH PER FLUSH PER S.A.S.H S.A.S.H S.A.S.H PROTOCOL PROTOCOL PROTOCOL sodium sodium No sodium [facility] chloride chloride chloride Med ical 0.9 % 0.9 % 0.9 % intravenous intravenous intravenou solution solution s solution USE TO MIX USE TO MIX USE TO MIX CEFTRIAXONE CEFTRIAXONE CEFTRIAXON 2GM 2GM E 2GM sulfamethox sulfamethox No sulfametho [facility] azole 200 azole 200 xazole 200 Medical mg-trimetho mg-trimetho mg-trimeth prim 40 prim 40 oprim 40 mg/5 mL mg/5 mL mg/5 mL oral oral oral suspension suspension suspension GIVE 20 ML GIVE 20 ML GIVE 20 ML TWICE A DAY TWICE A DAY TWICE A FOR 7 DAYS FOR 7 DAYS DAY FOR 7 DAYS sulfamethox sulfamethox No sulfametho [facility] azole 800 azole 800 xazole 800 Medical mg-trimetho mg-trimetho mg-trimeth prim 160 mg prim 160 mg oprim 160 tablet TAKE tablet TAKE mg tablet 1 TABLET BY 1 TABLET BY TAKE 1 MOUTH MOUTH TABLET BY BEFORE BEFORE MOUTH BREAKFAST BREAKFAST BEFORE EVERY 12 EVERY 12 BREAKFAST HOURS HOURS EVERY 12 HOURS tinidazole tinidazole No tinidazole [facility] 250 mg 250 mg 250 mg Medical tablet tablet tablet tinidazole tinidazole No tinidazole [facility] 500 mg 500 mg 500 mg Medical tablet TAKE tablet TAKE tablet 1 TABLET BY 1 TABLET BY TAKE 1 MOUTH EVERY MOUTH EVERY TABLET BY DAY DAY MOUTH (THURSDAY, (THURSDAY, EVERY DAY THURSDAY, THURSDAY, (THURSDAY, THURSDAY) THURSDAY) THURSDAY, THURSDAY) trazodone trazodone No trazodone [facility] 100 mg 100 mg 100 mg Medical tablet TAKE tablet TAKE tablet 1 TABLET BY 1 TABLET BY TAKE 1 MOUTH AT MOUTH AT TABLET BY BEDTIME BEDTIME MOUTH AT BEDTIME trazodone trazodone No trazodone [facility] 50 mg 50 mg 50 mg Medical tablet tablet tablet triamcinolo triamcinolo No triamcinol [facility] ne ne one Medical acetonide acetonide acetonide 0.1 % 0.1 % 0.1 % topical topical topical cream cream cream ursodiol ursodiol No ursodiol [facility] via 300 mg 300 mg 300 mg Medical capsule capsule capsule TAKE ONE TAKE ONE TAKE ONE CAPSULE BY CAPSULE BY CAPSULE BY MOUTH TWICE MOUTH TWICE MOUTH A DAY A DAY TWICE A DAY Visine-AC Visine-AC No Visine-AC [facility] 0.05 %-0.25 0.05 %-0.25 0.05 M edical % eye drops % eye drops %-0.25 % INSTILL 1 INSTILL 1 eye drops DROP INTO DROP INTO INSTILL 1 BOTH EYES BOTH EYES DROP INTO EVERY 8 EVERY 8 BOTH EYES HOURS HOURS EVERY 8 NEEDED FOR NEEDED FOR HOURS ITCHY EYES ITCHY EYES NEEDED FOR ITCHY EYES zolpidem 10 zolpidem 10 No zolpidem [facility] mg tablet mg tablet 10 mg Medi will tablet acetaminoph acetaminoph No acetaminop [facility] en 300 en 300 hen 300 Medical mg-codeine mg-codeine mg-codeine 30 mg 30 mg 30 mg tablet tablet tablet Amitiza 24 Amitiza 24 No Amitiza 24 [facility] mcg capsule mcg capsule mcg M edical capsule amoxicillin amoxicillin No amoxicilli [facility] 500 mg 500 mg n 500 mg Medical capsule capsule capsule atenolol 25 atenolol 25 No atenolol [facility] mg tablet mg tablet 25 mg Medi will TAKE 1 TAKE 1 tablet TABLET BY TABLET BY TAKE 1 MOUTH EVERY MOUTH EVERY TABLET BY DAY DAY MOUTH EVERY DAY azithromyci azithromyci No azithromyc [facility] n 250 mg n 250 mg in 250 mg Me dical tablet tablet tablet azithromyci azithromyci No azithromyc [facility] n 500 mg n 500 mg in 500 mg Me dical intravenous intravenous intravenou solution solution s solution AZITHROMYCI AZITHROMYCI AZITHROMYC N 250MG N 250MG IN 250MG MIXED IN MIXED IN MIXED IN 100ML NS. 100ML NS. 100ML NS. INFUSE 1 INFUSE 1 INFUSE 1 BAG BAG BAG INTRAVENOUS INTRAVENOUS INTRAVENOU LY OVER 30 LY OVER 30 SLY OVER MIN EVERY MIN EVERY 30 MIN THURSDAY, THURSDAY, EVERY Thursday, AND THURSDAY AND Thursday AND THURSDAY baclofen 10 baclofen 10 No baclofen [facility] mg tablet mg tablet 10 mg Medi will tablet benzonatate benzonatate No benzonatat [facility] 200 mg 200 mg e 200 mg Medical capsule capsule capsule TAKE 1 TAKE 1 TAKE 1 CAPSULE BY CAPSULE BY CAPSULE BY MOUTH THREE MOUTH THREE MOUTH TIMES A DAY TIMES A DAY THREE NEEDED NEEDED TIMES A FOR COUGH FOR COUGH DAY NEEDED FOR COUGH ceftriaxone ceftriaxone No ceftriaxon [facility] 2 gram 2 gram e 2 gram Medical solution solution solution for for for injection injection injection CEFTRIAXONE CEFTRIAXONE CEFTRIAXON 2GM MIXED 2GM MIXED E 2GM IN 100ML IN 100ML MIXED IN NS. INFUSE NS. INFUSE 100ML NS. 1 BAG 1 BAG INFUSE 1 INTRAVENOUS INTRAVENOUS BAG LY OVER LY OVER INTRAVENOU 30MIN FOR 30MIN FOR SLY OVER 4WKS 4WKS 30MIN FOR 4WKS cefuroxime cefuroxime No cefuroxime [facility] axetil 500 axetil 500 axetil 500 Medical mg tablet mg tablet mg tablet celecoxib celecoxib No celecoxib [facility] 200 mg 200 mg 200 mg Medical capsule capsule capsule cephalexin cephalexin No cephalexin [facility] 500 mg 500 mg 500 mg Medical capsule capsule capsule cholestyram cholestyram No cholestyra [facility] ine (with ine (with mine (with Medical sugar) 4 sugar) 4 sugar) 4 gram powder gram powder gram for susp in for susp in powder for a packet a packet susp in a packet citalopram citalopram No citalopram [facility] 10 mg 10 mg 10 mg Medical tablet tablet tablet cyclobenzap cyclobenzap No cyclobenza [facility] rine 10 mg rine 10 mg prabhjot 10 Medical tablet tablet mg tablet dapsone 25 dapsone 25 No dapsone 25 [facility] mg tablet mg tablet mg tablet Medical Dexilant 60 Dexilant 60 No Dexilant [facility] mg capsule, mg capsule, 60 mg Medical delayed delayed capsule, release release delayed TAKE ONE TAKE ONE release CAPSULE BY CAPSULE BY TAKE ONE MOUTH EVERY MOUTH EVERY CAPSULE BY DAY DAY MOUTH EVERY DAY diclofenac diclofenac No diclofenac [facility] 1 % topical 1 % topical 1 % M edical gel APPLY gel APPLY topical TO AFFECTED TO AFFECTED gel APPLY AREA TWICE AREA TWICE TO A DAY A DAY AFFECTED NEEDED NEEDED AREA TWICE A DAY NEEDED diclofenac diclofenac No diclofenac [facility] 75 75 75 Medical mg-misopros mg-misopros mg-misopro candace 200 mcg candace 200 mcg stol 200 tablet,imme tablet,imme mcg diate,delay diate,delay tablet,imm ed release ed release ediate,del ayed release dicyclomine dicyclomine No dicyclomin [facility] 10 mg 10 mg e 10 mg Medical capsule capsule capsule disulfiram disulfiram No disulfiram [facility] 250 mg 250 mg 250 mg Medical tablet TAKE tablet TAKE tablet 1/4 TABLET 1/4 TABLET TAKE 1/4 BY MOUTH BY MOUTH TABLET BY DAILY FOR 2 DAILY FOR 2 MOUTH WEEKS THEN WEEKS THEN DAILY FOR 1/2 TABLET 1/2 TABLET 2 WEEKS BY MOUTH BY MOUTH THEN 1/2 DAILY DAILY TABLET BY THEREAFTER THEREAFTER MOUTH DAILY THEREAFTER doxycycline doxycycline No doxycyclin [facility] hyclate 100 hyclate 100 e hyclate Medical mg capsule mg capsule 100 mg capsule dressing dressing No dressing [facility] via change kit change kit change kit Medical (drs) (drs) (drs) epinephrine epinephrine No epinephrin [facility] 0.3 mg/0.3 0.3 mg/0.3 e 0.3 Me dical mL mL mg/0.3 mL injection, injection, injection, auto-inject auto-inject auto-injec or USE or USE tor USE DIRECTED DIRECTED DIRECTED FOR FOR FOR ANAPHYLAXIS ANAPHYLAXIS ANAPHYLAXI REACTION REACTION S REACTION erythromyci erythromyci No erythromyc [facility] n 250 mg n 250 mg in 250 mg Me dical tablet TAKE tablet TAKE tablet 1 TABLET BY 1 TABLET BY TAKE 1 MOUTH 3 MOUTH 3 TABLET BY TIMES A DAY TIMES A DAY MOUTH 3 NEEDED NEEDED TIMES A BEFORE BEFORE DAY MEALS MEALS NEEDED BEFORE MEALS escitalopra escitalopra No escitalopr [facility] m 10 mg m 10 mg am 10 mg Medic al tablet TAKE tablet TAKE tablet 1 TABLET BY 1 TABLET BY TAKE 1 MOUTH EVERY MOUTH EVERY TABLET BY DAY DAY MOUTH EVERY DAY escitalopra escitalopra No escitalopr [facility] m 20 mg m 20 mg am 20 mg Medic al tablet TAKE tablet TAKE tablet 1 TABLET BY 1 TABLET BY TAKE 1 MOUTH EVERY MOUTH EVERY TABLET BY DAY DAY MOUTH DIRECTED DIRECTED EVERY DAY DIRECTED esomeprazol esomeprazol No esomeprazo [facility] e magnesium e magnesium le M edical 40 mg 40 mg magnesium capsule,del capsule,del 40 mg ayed ayed capsule,de release release layed TAKE ONE TAKE ONE release CAPSULE BY CAPSULE BY TAKE ONE MOUTH EVERY MOUTH EVERY CAPSULE BY DAY DAY MOUTH EVERY DAY first-lanso first-lanso No first-lans [facility] prazole 3 prazole 3 oprazole 3 Medical mg/ml TAKE mg/ml TAKE mg/ml TAKE 20 MG (6.7 20 MG (6.7 20 MG (6.7 MILILITERS) MILILITERS) MILILITERS PER PEG PER PEG ) PER PEG TUBE ONCE TUBE ONCE TUBE ONCE DAILY FOR DAILY FOR DAILY FOR 90 DAYS 90 DAYS 90 DAYS fluconazole fluconazole No fluconazol [facility] 100 mg 100 mg e 100 mg Medical tablet tablet tablet Gamunex-C Gamunex-C No Gamunex-C [facility] 10 gram/100 10 gram/100 10 M edical mL (10 %) mL (10 %) gram/100 injection injection mL (10 %) solution solution injection solution Heparin Heparin No Heparin [facility] Lock Flush Lock Flush Lock Flush Medical (Porcine) (Porcine) (Porcine) (PF) 100 (PF) 100 (PF) 100 unit/mL unit/mL unit/mL intravenous intravenous intravenou syringe syringe s syringe FLUSH PER FLUSH PER FLUSH PER S.A.S.H S.A.S.H S.A.S.H PROTOCOL PROTOCOL PROTOCOL hydroxyzine hydroxyzine No hydroxyzin [facility] HCl 10 mg/5 HCl 10 mg/5 e HCl 10 Medical mL oral mL oral mg/5 mL solution solution oral TAKE 25 ML TAKE 25 ML solution BY MOUTH BY MOUTH TAKE 25 ML FOUR TIMES FOUR TIMES BY MOUTH NEEDED NEEDED FOUR TIMES FOR ITCH OR FOR ITCH OR NEEDED AT BEDTIME AT BEDTIME FOR ITCH FOR SLEEP FOR SLEEP OR AT BEDTIME FOR SLEEP ivermectin ivermectin No ivermectin [facility] 3 mg tablet 3 mg tablet 3 mg M edical TAKE 1 TAKE 1 tablet TABLET BY TABLET BY TAKE 1 MOUTH TWICE MOUTH TWICE TABLET BY A WEEK FOR A WEEK FOR MOUTH 8 WEEKS 8 WEEKS TWICE A WEEK FOR 8 WEEKS ketamine-ba ketamine-ba No ketamine-b [facility] sergio-cyclobe sergio-cyclobe aclo-cyclo Medical nz nz presley 10%-2%-2% 10%-2%-2% 10%-2%-2% grams APPLY grams APPLY grams 2 TO 4 2 TO 4 APPLY 2 TO PUMPS TO PUMPS TO 4 PUMPS TO AFFECTED AFFECTED AFFECTED AREA 3 TO 4 AREA 3 TO 4 AREA 3 TO TIMES A DAY TIMES A DAY 4 TIMES A DAY lansoprazol lansoprazol No lansoprazo [facility]ather e heather le heather Medical 3mg/ml 3mg/ml 3mg/ml magic mouth magic mouth No magic [facility] wash SWISH wash SWISH mouth wash Medical AND SPIT 5 AND SPIT 5 SWISH AND ML 3 TIMES ML 3 TIMES SPIT 5 ML A DAY A DAY 3 TIMES A DAY meloxicam meloxicam No meloxicam [facility] 15 mg 15 mg 15 mg Medical tablet tablet tablet methylpredn methylpredn No methylpred [facility] isolone 4 isolone 4 nisolone 4 Medical mg tablets mg tablets mg tablets in a dose in a dose in a dose pack TAKE 6 pack TAKE 6 pack TAKE TABLETS ON TABLETS ON 6 TABLETS DAY 1 DAY 1 ON DAY 1 DIRECTED ON DIRECTED ON PACKAGE AND PACKAGE AND DIRECTED DECREASE BY DECREASE BY ON PACKAGE 1 TAB EACH 1 TAB EACH AND DAY FOR A DAY FOR A DECREASE TOTAL OF 6 TOTAL OF 6 BY 1 TAB DAYS DAYS EACH DAY FOR A TOTAL OF 6 DAYS metoprolol metoprolol No metoprolol [facility] succinate succinate succinate Medical ER 50 mg ER 50 mg ER 50 mg tablet,exte tablet,exte tablet,ext nded nded ended release 24 release 24 release 24 hr TAKE 1 hr TAKE 1 hr TAKE 1 TABLET BY TABLET BY TABLET BY MOUTH EVERY MOUTH EVERY MOUTH DAY DAY EVERY DAY minocycline minocycline No minocyclin [facility] 100 mg 100 mg e 100 mg Medical capsule capsule capsule TAKE ONE TAKE ONE TAKE ONE CAPSULE BY CAPSULE BY CAPSULE BY MOUTH TWICE MOUTH TWICE MOUTH A DAY FOR 6 A DAY FOR 6 TWICE A WEEKS WEEKS DAY FOR 6 WEEKS mupirocin 2 mupirocin 2 No mupirocin [facility] % topical % topical 2 % Medic al ointment ointment topical ointment nitrofurant nitrofurant No nitrofuran [facility] oin oin toin Medical monohydrate monohydrate monohydrat /macrocryst /macrocryst e/macrocry als 100 mg als 100 mg stals 100 capsule capsule mg capsule nystatin nystatin No nystatin [facility] via 100,000 100,000 100,000 Medica l unit/mL unit/mL unit/mL oral oral oral suspension suspension suspension TAKE 5ML BY TAKE 5ML BY TAKE 5ML MOUTH TWICE MOUTH TWICE BY MOUTH A DAY A DAY TWICE A DAY omeprazole omeprazole No omeprazole [facility] 20 mg 20 mg 20 mg Medical capsule,del capsule,del capsule,de ayed ayed layed release release release TAKE 1 TAKE 1 TAKE 1 CAPSULE BY CAPSULE BY CAPSULE BY MOUTH TWICE MOUTH TWICE MOUTH A DAY A DAY TWICE A DAY omeprazole omeprazole No omeprazole [facility] 40 mg 40 mg 40 mg Medical capsule,del capsule,del capsule,de ayed ayed layed release release release TAKE 1 TAKE 1 TAKE 1 CAPSULE BY CAPSULE BY CAPSULE BY MOUTH EVERY MOUTH EVERY MOUTH DAY DAY EVERY DAY ondansetron ondansetron No ondansetro [facility] HCl 4 mg HCl 4 mg n HCl 4 mg M edical tablet tablet tablet DISSOLVE 1 DISSOLVE 1 DISSOLVE 1 TABLET BY TABLET BY TABLET BY MOUTH EVERY MOUTH EVERY MOUTH 4 HOURS 4 HOURS EVERY 4 NEEDED NEEDED HOURS NAUSEA NAUSEA NEEDED NAUSEA Prilosec 1 Prilosec 1 No Prilosec 1 [facility] capsule; 20 capsule; 20 capsule; Medical MG; Once a MG; Once a 20 MG; day day Once a day promethazin promethazin No promethazi [facility] e 25 mg e 25 mg ne 25 mg Medic al tablet TAKE tablet TAKE tablet 1 TO 2 1 TO 2 TAKE 1 TO TABLETS BY TABLETS BY 2 TABLETS MOUTH 4 MOUTH 4 BY MOUTH 4 TIMES A DAY TIMES A DAY TIMES A NEEDED NEEDED DAY FOR NAUSEA FOR NAUSEA NEEDED FOR NAUSEA rifampin rifampin No rifampin [facility] via 150 mg 150 mg 150 mg Medical capsule capsule capsule riluzole 50 riluzole 50 No riluzole [facility] mg tablet mg tablet 50 mg Medi will tablet scopolamine scopolamine No scopolamin [facility] 1 mg over 3 1 mg over 3 e 1 mg Medical days days over 3 transdermal transdermal days patch APPLY patch APPLY transderma 1 PATCH(ES) 1 PATCH(ES) l patch EVERY 72 EVERY 72 APPLY 1 HOURS BY HOURS BY PATCH(ES) TRANSDERMAL TRANSDERMAL EVERY 72 ROUTE ROUTE HOURS BY DIRECTED DIRECTED TRANSDERMA FOR 10 FOR 10 L ROUTE DAYS. DAYS. DIRECTED FOR 10 DAYS. sodium sodium No sodium [facility] chloride chloride chloride Med ical 0.9 % 0.9 % 0.9 % (flush) (flush) (flush) injection injection injection syringe syringe syringe FLUSH PER FLUSH PER FLUSH PER S.A.S.H S.A.S.H S.A.S.H PROTOCOL PROTOCOL PROTOCOL sodium sodium No sodium [facility] chloride chloride chloride Med ical 0.9 % 0.9 % 0.9 % intravenous intravenous intravenou solution solution s solution USE TO MIX USE TO MIX USE TO MIX CEFTRIAXONE CEFTRIAXONE CEFTRIAXON 2GM 2GM E 2GM sulfamethox sulfamethox No sulfametho [facility] azole 200 azole 200 xazole 200 Medical mg-trimetho mg-trimetho mg-trimeth prim 40 prim 40 oprim 40 mg/5 mL mg/5 mL mg/5 mL oral oral oral suspension suspension suspension GIVE 20 ML GIVE 20 ML GIVE 20 ML TWICE A DAY TWICE A DAY TWICE A FOR 7 DAYS FOR 7 DAYS DAY FOR 7 DAYS sulfamethox sulfamethox No sulfametho [facility] azole 800 azole 800 xazole 800 Medical mg-trimetho mg-trimetho mg-trimeth prim 160 mg prim 160 mg oprim 160 tablet TAKE tablet TAKE mg tablet 1 TABLET BY 1 TABLET BY TAKE 1 MOUTH MOUTH TABLET BY BEFORE BEFORE MOUTH BREAKFAST BREAKFAST BEFORE EVERY 12 EVERY 12 BREAKFAST HOURS HOURS EVERY 12 HOURS tinidazole tinidazole No tinidazole [facility] 250 mg 250 mg 250 mg Medical tablet tablet tablet tinidazole tinidazole No tinidazole [facility] 500 mg 500 mg 500 mg Medical tablet TAKE tablet TAKE tablet 1 TABLET BY 1 TABLET BY TAKE 1 MOUTH EVERY MOUTH EVERY TABLET BY DAY DAY MOUTH (THURSDAY, (THURSDAY, DAY THURSDAY, THURSDAY, (THURSDAY, THURSDAY) THURSDAY) THURSDAY, THURSDAY) trazodone trazodone No trazodone [facility] 100 mg 100 mg 100 mg Medical tablet TAKE tablet TAKE tablet 1 TABLET BY 1 TABLET BY TAKE 1 MOUTH AT MOUTH AT TABLET BY BEDTIME BEDTIME MOUTH AT BEDTIME trazodone trazodone No trazodone [facility] 50 mg 50 mg 50 mg Medical tablet tablet tablet triamcinolo triamcinolo No triamcinol [facility] ne ne one Medical acetonide acetonide acetonide 0.1 % 0.1 % 0.1 % topical topical topical cream cream cream ursodiol ursodiol No ursodiol [facility] via 300 mg 300 mg 300 mg Medical capsule capsule capsule TAKE ONE TAKE ONE TAKE ONE CAPSULE BY CAPSULE BY CAPSULE BY MOUTH TWICE MOUTH TWICE MOUTH A DAY A DAY TWICE A DAY Visine-AC Visine-AC No Visine-AC [facility] 0.05 %-0.25 0.05 %-0.25 0.05 M edical % eye drops % eye drops %-0.25 % INSTILL 1 INSTILL 1 eye drops DROP INTO DROP INTO INSTILL 1 BOTH EYES BOTH EYES DROP INTO EVERY 8 EVERY 8 BOTH EYES HOURS HOURS EVERY 8 NEEDED FOR NEEDED FOR HOURS ITCHY EYES ITCHY EYES NEEDED FOR ITCHY EYES zolpidem 10 zolpidem 10 No zolpidem [facility] mg tablet mg tablet 10 mg Medi will tablet acetaminoph acetaminoph No acetaminop [facility] en 300 en 300 hen 300 Medical mg-codeine mg-codeine mg-codeine 30 mg 30 mg 30 mg tablet tablet tablet alprazolam alprazolam No alprazolam [facility] 0.25 mg 0.25 mg 0.25 mg Medica l tablet TAKE tablet TAKE tablet 1 TABLET BY 1 TABLET BY TAKE 1 MOUTH EVERY MOUTH EVERY TABLET BY 12 HOURS 12 HOURS MOUTH NEEDED FOR NEEDED FOR EVERY 12 15 DAYS 15 DAYS HOURS NEEDED FOR 15 DAYS Amitiza 24 Amitiza 24 No Amitiza 24 [facility] mcg capsule mcg capsule mcg M edical capsule amoxicillin amoxicillin No amoxicilli [facility] 500 mg 500 mg n 500 mg Medical capsule capsule capsule atenolol 25 atenolol 25 No atenolol [facility] mg tablet mg tablet 25 mg Medi will TAKE 1 TAKE 1 tablet TABLET BY TABLET BY TAKE 1 MOUTH TWICE MOUTH TWICE TABLET BY A DAY A DAY MOUTH TWICE A DAY azithromyci azithromyci No azithromyc [facility] n 250 mg n 250 mg in 250 mg Me dical tablet tablet tablet azithromyci azithromyci No azithromyc [facility] n 500 mg n 500 mg in 500 mg Me dical intravenous intravenous intravenou solution solution s solution AZITHROMYCI AZITHROMYCI AZITHROMYC N 250MG N 250MG IN 250MG MIXED IN MIXED IN MIXED IN 100ML NS. 100ML NS. 100ML NS. INFUSE 1 INFUSE 1 INFUSE 1 BAG BAG BAG INTRAVENOUS INTRAVENOUS INTRAVENOU LY OVER 30 LY OVER 30 SLY OVER MIN EVERY MIN EVERY 30 MIN THURSDAY, THURSDAY, EVERY Thursday, AND THURSDAY AND Thursday AND THURSDAY Immunizations Ordered Immunization Filled Immunization Date Status Commen ts Source Name Name Pneumococcal 2016-06-26 Completed [facility] 00:00:00 [facility] Pneumococcal 2016-06-26 Completed [facility]jug[facility] 00:00:00 [facility] Pneumococcal 2016-06-26 Completed [facility] Conjug[facility] 00:00:00 [facility] Pneumococcal 2016-06-26 Completed [facility] Conjugate [facility] 00:00:00 [facility] Vital Signs Vital Name Observation Time Observation Value Comments Source Systolic blood 2021-10-02 122 mm[Hg] [facility] pressure 17:14:00 Diastolic blood 2021-10-02 75 mm[Hg] [facility] pressure 17:14:00 Heart rate 2021-10-02 89 /min [facility] 17:14:00 Body temperature 2021-10-02 36.28 Hiral [facility] 17:14:00 Height 2022-07-22 65 [in_i] [facility] 00:00:00 BMI (Body Mass 2022-07-22 20[facility]8 [facility] 00:[facility]:00 Body Weight 2022-07-22 2000 [oz_av] [facility] 00:00:00 Systolic blood 2022-05-07 105 mm[Hg] [facility] pressure 16:02:00 Diastolic blood 2022-05-07 62 mm[Hg] [facility] pressure 16:02:00 Heart rate 2022-05-07 78 /min [facility] 16:02:00 Body temperature 2022-05-07 36.5 Hiral [facility] 16:02:00 Height 2022-02-26 65 [in_i] [facility] 00:00:00 Systolic blood 2021-10-02 122 mm[Hg] [facility] pressure 17:14:00 Diastolic blood 2021-10-02 75 mm[Hg] [facility] pressure 17:14:00 Heart rate 2021-10-02 89 /min [facility] 17:14:00 Body temperature 2021-10-02 36.28 Hiral [facility] 17:14:00 Height 2021-08-02 65 [in_i] [facility] 00:00:00 BMI (Body Mass 2021-08-02 30 kg/m2 [facility] 00:00:00 Body Weight 2021-08-02 2880 [oz_av] [facility] 00:00:00 Systolic blood 2021-03-27 133 mm[Hg] [facility] pressure 14:50:00 Diastolic blood 2021-03-27 87 mm[Hg] [facility] pressure 14:50:00 Heart rate 2021-03-27 85 /min [facility] 14:50:00 Body temperature 2021-03-27 35.72 Hiral [facility] 14:50:00 Body weight 2021-03-27 65.772 kg approx 145 . Pt [facility] 14:50:00 is in a wheelchair Respitory Rate 2021-09-24 [facility] 18:45:00 Don Systolic (mm Hg) 2021-09-24 [facility] 18:45:00 [facility] Diastolic (mm Hg) 2021-09-24 [facility] 18:45:00 Don Respitory Rate 2021-09-24 [facility] 18:30:00 Don Systolic (mm Hg) 2021-09-24 [facility] 18:30:00 Don Diastolic (mm Hg) 2021-09-24 [facility] 18:30:00 Don Respitory Rate 2021-09-24 [facility] 18:15:00 Don Systolic (mm Hg) 2021-09-24 [facility] 18:15:00 [facility] Diastolic (mm Hg) 2021-09-24 [facility] 18:15:00 [facility] Heart Rate 2021-09-24 [facility] 16:19:00 Don Height 2021-09-20 165.1 cm [facility] 22:31:00 Don Weight 2021-09-20 [facility] 22:31:00 Don BMI Calculated 2021-09-20 [facility] 22:31:00 Don Heart Rate 2019-05-23 [facility] 18:30:00 [facility] Respitory Rate 2019-05-23 [facility] 18:30:00 [facility] Systolic (mm Hg) 2019-05-23 [facility] 18:30:00 [facility] Diastolic (mm Hg) 2019-05-23 [facility] 18:30:00 [facility] Heart Rate 2019-05-23 [facility] 12:30:00 [facility] Respitory Rate 2019-05-23 [facility] 12:30:00 [facility] Systolic (mm Hg) 2019-05-23 [facility] 12:30:00 Don Diastolic (mm Hg) 2019-05-23 [facility] 12:30:00 [facility] Heart Rate 2019-05-23 [facility] 00:30:00 Don Respitory Rate 2019-05-23 [facility] 00:30:00 Don Systolic (mm Hg) 2019-05-23 [facility] 00:30:00 [facility] Diastolic (mm Hg) 2019-05-23 [facility] 00:30:00 Don Height 2019-05-20 165.1 cm [facility] 21:27:00 [facility] Temperature Oral 2019-05-17 97.5 [facility] (F) 07:20:00 Don Temperature Oral 2019-05-14 97.7 [facility] (F) 18:30:00 [facility] Temperature Oral 2019-05-14 97.1 [facility] (F) 12:30:00 [facility] Height 2019-05-03 165.1 cm [facility] 03:00:00 Don Height 2019-05-03 165.1 cm [facility] 02:03:00 Don Weight 2019-05-03 [facility] 02:03:00 Don BMI Calculated 2019-05-03 [facility] 02:03:00 Don Respitory Rate 2019-05-03 [facility] 01:09:00 Don Systolic (mm Hg) 2019-05-03 [facility] 01:09:00 Don Diastolic (mm Hg) 2019-05-03 [facility] 01:09:00 [facility] Respitory Rate 2019-05-02 [facility] 22:52:00 [facility] Heart Rate 2019-05-02 [facility] 22:52:00 Don Respitory Rate 2019-05-02 [facility] 22:15:00 Don Heart Rate 2019-05-02 [facility] 20:41:00 Don Systolic (mm Hg) 2019-05-02 [facility] 20:41:00 [facility] Diastolic (mm Hg) 2019-05-02 [facility] 20:41:00 Don Systolic (mm Hg) 2019-05-02 [facility] 19:45:00 [facility] Diastolic (mm Hg) 2019-05-02 [facility] 19:45:00 Don Temperature Oral 2019-05-02 97.6 F [facility] (F) 13:45:00 Don Heart Rate 2019-05-02 [facility] 13:45:00 [facility] Height 2019-05-01 165.1 cm [facility] 17:16:00 [facility] Weight 2019-05-01 [facility] 17:16:00 Don BMI Calculated 2019-05-01 [facility] 17:16:00 Don Heart Rate 2019-05-01 [facility] 12:30:00 [facility] Respitory Rate 2019-05-01 [facility] 12:30:00 [facility] Systolic (mm Hg) 2019-05-01 [facility] 12:30:00 Don Diastolic (mm Hg) 2019-05-01 [facility] 12:30:00 Don Heart Rate 2019-05-01 [facility] 00:30:00 Don Respitory Rate 2019-05-01 [facility] 00:30:00 [facility] Systolic (mm Hg) 2019-05-01 [facility] 00:30:00 [facility] Diastolic (mm Hg) 2019-05-01 [facility] 00:30:00 Don Heart Rate 2019-04-30 [facility] 18:30:00 [facility] Respitory Rate 2019-04-30 [facility] 18:30:00 Don Systolic (mm Hg) 2019-04-30 [facility] 18:30:00 [facility] Diastolic (mm Hg) 2019-04-30 [facility] 18:30:00 [facility] Temperature Oral 2019-04-29 97.6 F [facility] (F) 00:30:00 [facility] Temperature Oral 2019-04-28 96.0 F [facility] (F) 12:29:00 Don Temperature Oral 2019-04-28 97.7 F [facility] (F) 00:30:00 Don Height 2019-04-22 165.1 cm [facility] 23:31:00 Don Weight 2019-04-22 [facility] 23:31:00 [facility] BMI Calculated 2019-04-22 [facility] 23:31:00 Don Temperature Oral 2019-04-22 98.5 F [facility] (F) 20:52:00 [facility] Heart Rate 2019-04-22 [facility] 20:52:00 [facility] Respitory Rate 2019-04-22 [facility] 20:52:00 [facility] Systolic (mm Hg) 2019-04-22 [facility] 20:52:00 Don Diastolic (mm Hg) 2019-04-22 [facility] 20:52:00 Don Temperature Oral 2019-04-22 98.3 F [facility] (F) 17:25:00 Don Heart Rate 2019-04-22 [facility] 17:25:00 [facility] Respitory Rate 2019-04-22 [facility] 17:25:00 [facility] Systolic (mm Hg) 2019-04-22 [facility] 17:25:00 [facility] Diastolic (mm Hg) 2019-04-22 [facility] 17:25:00 Don Temperature Oral 2019-04-22 97.7 F [facility] (F) 13:10:00 Don Heart Rate 2019-04-22 [facility] 13:10:00 Don Respitory Rate 2019-04-22 [facility] 13:10:00 [facility] Systolic (mm Hg) 2019-04-22 [facility] 13:10:00 [facility] Diastolic (mm Hg) 2019-04-22 [facility] 13:10:00 Don Height 2019-04-19 165.1 cm [facility] 23:18:00 [facility] Weight 2019-04-19 [facility] 23:18:00 [facility] BMI Calculated 2019-04-19 [facility] 23:18:00 Don Systolic (mm Hg) 2019-04-19 [facility] 18:36:00 Don Diastolic (mm Hg) 2019-04-19 [facility] 18:36:00 [facility] Heart Rate 2019-04-19 [facility] 18:36:00 [facility] Respitory Rate 2019-04-19 [facility] 18:36:00 Don Height 2019-04-19 165.1 cm [facility] 18:36:00 [facility] BMI Calculated 2019-04-19 [facility] 18:36:00 [facility] Weight 2019-04-19 [facility] 18:36:00 Don Weight 2019-03-16 [facility] 13:25:00 [facility] BMI Calculated 2019-03-16 [facility] 13:25:00 Don Height 2019-03-16 165.1 cm [facility] 13:25:00 [facility] Systolic (mm Hg) 2019-03-16 [facility] 13:25:00 [facility] Diastolic (mm Hg) 2019-03-16 [facility] 13:25:00 [facility] Systolic (mm Hg) 2019-03-03 [facility] 17:42:00 Don Diastolic (mm Hg) 2019-03-03 [facility] 17:42:00 [facility] Weight 2019-03-02 [facility] 13:51:00 Don BMI Calculated 2019-03-02 [facility] 13:51:00 [facility] Height 2019-03-02 165.1 cm [facility] 13:51:00 [facility] Systolic (mm Hg) 2019-03-02 [facility] 13:51:00 Don Diastolic (mm Hg) 2019-03-02 [facility] 13:51:00 [facility] Heart Rate 2019-03-02 [facility] 13:51:00 Don Respitory Rate 2019-03-02 [facility] 13:51:00 Don Systolic (mm Hg) 2019-02-17 [facility] 16:50:00 [facility] Diastolic (mm Hg) 2019-02-17 [facility] 16:50:00 Don Heart Rate 2019-02-15 [facility] 17:13:00 Don Systolic (mm Hg) 2019-02-15 [facility] 17:13:00 Don Diastolic (mm Hg) 2019-02-15 [facility] 17:13:00 [facility] Systolic (mm Hg) 2019-02-10 [facility] 18:36:00 [facility] Diastolic (mm Hg) 2019-02-10 [facility] 18:36:00 [facility] Systolic (mm Hg) 2019-01-20 [facility] 16:27:00 Don Diastolic (mm Hg) 2019-01-20 [facility] 16:27:00 [facility] Systolic (mm Hg) 2019-01-06 [facility] 17:45:00 Don Diastolic (mm Hg) 2019-01-06 [facility] 17:45:00 [facility] Systolic (mm Hg) 2018-12-28 [facility] 17:19:00 [facility] Diastolic (mm Hg) 2018-12-28 [facility] 17:19:00 Don Systolic (mm Hg) 2018-12-23 [facility] 18:12:00 Don Diastolic (mm Hg) 2018-12-23 [facility] 18:12:00 Don Height 2018-12-15 165.1 cm [facility] 15:12:00 Don BMI Calculated 2018-12-15 [facility] 15:12:00 [facility] Weight 2018-12-15 [facility] 15:12:00 [facility] Systolic (mm Hg) 2018-12-15 [facility] 15:12:00 [facility] Diastolic (mm Hg) 2018-12-15 [facility] 15:12:00 Don Respitory Rate 2018-12-15 [facility] 15:12:00 [facility] Heart Rate 2018-12-15 [facility] 15:12:00 [facility] Systolic (mm Hg) 2018-12-09 [facility] 19:18:00 [facility] Diastolic (mm Hg) 2018-12-09 [facility] 19:18:00 [facility] Systolic (mm Hg) 2018-12-08 [facility] 17:35:00 [facility] Diastolic (mm Hg) 2018-12-08 [facility] 17:35:00 Don Heart Rate 2018-12-08 [facility] 17:35:00 Don Weight 2018-11-30 [facility] 15:09:00 Odn BMI Calculated 2018-11-30 [facility] 15:09:00 Don Height 2018-11-30 165.1 cm [facility] 15:09:00 [facility] Respitory Rate 2018-11-30 [facility] 15:09:00 Don Heart Rate 2018-11-30 [facility] 15:09:00 [facility] Systolic (mm Hg) 2018-11-30 [facility] 15:09:00 [facility] Diastolic (mm Hg) 2018-11-30 [facility] 15:09:00 [facility] Systolic (mm Hg) 2018-11-18 [facility] 22:23:00 [facility] Diastolic (mm Hg) 2018-11-18 [facility] 22:23:00 [facility] Systolic (mm Hg) 2018-11-04 [facility] 17:52:00 Don Diastolic (mm Hg) 2018-11-04 [facility] 17:52:00 Don Heart Rate 2018-10-28 [facility] 18:41:00 [facility] Systolic (mm Hg) 2018-10-28 [facility] 18:41:00 [facility] Diastolic (mm Hg) 2018-10-28 [facility] 18:41:00 [facility] Systolic (mm Hg) 2018-10-14 [facility] 18:41:00 Don Diastolic (mm Hg) 2018-10-14 [facility] 18:41:00 [facility] Heart Rate 2018-10-12 [facility] 18:16:00 Don Systolic (mm Hg) 2018-10-12 [facility] 18:16:00 Don Diastolic (mm Hg) 2018-10-12 [facility] 18:16:00 Don Systolic (mm Hg) 2018-10-07 [facility] 18:37:00 Don Diastolic (mm Hg) 2018-10-07 [facility] 18:37:00 Don Systolic (mm Hg) 2018-09-16 [facility] 19:26:00 [facility] Diastolic (mm Hg) 2018-09-16 [facility] 19:26:00 Don Heart Rate 2018-09-09 [facility] 22:18:00 Don Systolic (mm Hg) 2018-09-09 [facility] 22:18:00 [facility] Diastolic (mm Hg) 2018-09-09 [facility] 22:18:00 Don Systolic (mm Hg) 2018-09-02 [facility] 19:40:00 [facility] Diastolic (mm Hg) 2018-09-02 [facility] 19:40:00 [facility] Heart Rate 2018-08-05 [facility] 18:40:00 [facility] Systolic (mm Hg) 2018-08-05 [facility] 18:40:00 Don Diastolic (mm Hg) 2018-08-05 [facility] 18:40:00 Don Systolic (mm Hg) 2018-08-03 [facility] 17:09:00 [facility] Diastolic (mm Hg) 2018-08-03 [facility] 17:09:00 [facility] Heart Rate 2018-08-03 [facility] 17:09:00 Don Systolic (mm Hg) 2018-07-13 [facility] 21:29:00 [facility] Diastolic (mm Hg) 2018-07-13 [facility] 21:29:00 [facility] Heart Rate 2018-07-13 [facility] 21:29:00 Don Heart Rate 2018-07-07 [facility] 22:00:00 [facility] Systolic (mm Hg) 2018-07-07 [facility] 22:00:00 Don Diastolic (mm Hg) 2018-07-07 [facility] 22:00:00 [facility] Systolic (mm Hg) 2018-06-22 [facility] 21:08:00 Don Diastolic (mm Hg) 2018-06-22 [facility] 21:08:00 [facility] Heart Rate 2018-06-22 [facility] 21:08:00 Don Procedures Procedure Date / Time Performing Clinician Source Performed Esophagogastroduodenoscopy, 2021-09-24 17:22:00 [facility], transoral; with directed placement of percutaneous gastrostomy tube DIAGNOSTIC LAPAROSCOPY 2019-05-02 05:00:00 Memor ial Hilton Chemodenervation of one 2019-03-16 14:16:00 Pradeep rial Don extremity; 5 or more muscles Chemodenervation of parotid 2019-03-16 14:16:00 [facility] and submandibular salivary glands, bilateral LAPAROSCOPIC SLEEVE 2011-01-29 05:00:00 [facility] GASTRECTOMY MRI [facility] Caesarean section [facility] nn Colonoscopy [facility] Curettage of sinus [facility] Plan of Care Planned Activity Planned Date Details Comments Source Future Scheduled 2022-10-31 COVID-19 VACCINE (#1) [facility] Test 13:55:27 [code = COVID-19 VACCINE (#1)] Future Scheduled 2022-10-31 Screening for [facility] Test 13:55:27 malignant neoplasm of cervix (procedure) [code = 795027911] Future Scheduled 2022-10-31 BREAST CANCER [facility] Test 13:55:27 SCREENING [code = BREAST CANCER SCREENING] Future Scheduled 2022-10-31 COLONOSCOPY SCREENING [facility] Test 13:55:27 [code = COLONOSCOPY SCREENING] Future Scheduled 2022-10-31 SHINGLES VACCINES (1 [facility] Test 13:55:27 of 2) [code = SHINGLES VACCINES (1 of 2)] Future Scheduled 2022-10-31 INFLUENZA VACCINE [facility] Test 13:55:27 [code = INFLUENZA VACCINE] Future Scheduled 2022-08-13 COVID-19 VACCINE (#1) [facility] Test 05:10:35 [code = COVID-19 VACCINE (#1)] Future Scheduled 2022-08-13 Screening for [facility] Test 05:10:35 malignant neoplasm of cervix (procedure) [code = 902029037] Future Scheduled 2022-08-13 BREAST CANCER [facility] Test 05:10:35 SCREENING [code = BREAST CANCER SCREENING] Future Scheduled 2022-08-13 COLONOSCOPY [facility]CREENING [facility] Test 05:10:35 [code = COLONOSCOPY SCREENING] Future Scheduled 2022-08-13 [facility]INES [facility]1 [facility] 05:10:35 of 2) [code = SHINGLES VACCINES (1 of 2)] Future Scheduled 2022-08-13 IN[facility]UENZA VACCINE [facility] Test 05:10:35 [code = INFLUENZA VACCINE] Future Scheduled 2022-08-06 COVID-19 VACCINE (#1) [facility] Test 04:51:49 [code = COVID-19 VACCINE (#1)] Future Scheduled 2022-08-06 BREAST CANCER [facility] Test 04:51:49 SCREENING [code = BREAST CANCER SCREENING] Future Scheduled 2022-08-[address] [facility] Test 04:51:49 [code = COLONOSCOPY SCREENING] Future Scheduled 2022-08-06 SHINGLES VACCINES (1 [facility] Test 04:51:49 of 2) [code = SHINGLES VACCINES (1 of 2)] Future Scheduled 2022-08-06 INFLUENZA VACCINE [facility] Test 04:51:49 [code = INFLUENZA VACCINE] Future Scheduled COVID-19 [facility]ACCINE (1) [facility] [code = COVID-19 VACCINE (1)] Future Scheduled BREAST CANCER [facility] Test SCREENING [code = BREAST CANCER SCREENING] Future Scheduled COLONOSCOPY SCREENING Me [facility] Hospital Test [code = COLONOSCOPY SCREENING] Future Scheduled SHINGLES VACCINES [facility] Test (#1) [code = SHINGLES VACCINES (#1)] Future Scheduled Screening for [facility] Test malignant neoplasm of cervix (procedure) [code = 415421013] Future Scheduled INFLUENZA VACCINE [facility] Test [code = INFLUENZA VACCINE] Encounters Start End Encounter Admission Attending Care Care Encounter Source Date/Time Date/Time Type Type Clinicians Facility Department ID 2021-10-01 Outpatient [facility] [id number] [place] 16:34:28 [facility] 2021-03-25 Outpatient [facility] [id number] [place] 13:38:33 [facility] 2022-07-22 2022-07-22 Outpatient GC_TNC_Cher PRIV PRIV [id number] [facility] 00:00:00 00:00:00 ches_I [id number] Medica l 2022-07-22 2022-07-22 Ariana [facility] 129 [facility] 00:00:00 00:00:00 Rick [facility] 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 2022-07-21 2022-07-21 Outpatient GC_TNC_Cher PRIV PRIV 70 46[facility]20 [facility] 00:00:00 00:00:00 ches_I [id number] Medica l 2022-05-07 2022-05-07 Office Myra, [facility] [id number] [place] 11:30:00 16:38:59 Visit Maylin DE [place] [id number] H [facility] [id number] [facility] [id number] 2022-02-26 2022-02-26 Outpatient GC_TNC_Cher PRIV PRIV [address] [place], [place] [id number] [facility] 00:00:00 00:00:00 ches_I [id number] Medica l 2022-02-26 2022-02-26 Outpatient Rick PRIV PRIV [id number] 00:00:00 00:00:00 Ariana [id number] 2022-02-26 2022-02-26 Ariana [facility]IV [facility] [id number] [facility] 00:00:00 00:00:00 Rick [facility] 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 2022-02-20 2022-02-20 Outpatient GC_TNC_Cher PRIV PRIV [id number] [facility] 12:47:00 12:47:00 ches_I [id number] Medica l 2022-02-04 2022-02-04 Outpatient GC_TNC_Cher PRIV PRIV 701 [id number] [facility] 10:56:00 10:56:00 ches_I [id number] Medica l 2022-01-20 2022-01-20 Nurse Maida Mcnair [id number] [place] 00:00:00 00:00:00 Triage Maida Mcnair [id number] Health MEDICAL [id number] [place] [id number] 2021-10-02 2021-10-02 Office Myra [facility] [id number] [place] 11:00:00 11:34:14 Visit Maylin Ochoa [id number] [facility] Medical [id number] Group [id number] [address] y 2021-09-30 2021-09-30 Nurse Omer Castillo MAURISIO BETSY [id number] [place] 00:00:00 00:00:00 Triage Omer Castillo [id number] [facility] MEDICAL [id number] [place] [id number] 2021-09-24 2021-09-24 Bedded [facility] [id number] [facility] 15:41:00 18:55:00 Outpatient alireza Ochoa 11 l [place] Imani scarlet 2021-09-24 2021-09-24 Outpatient MYRA, MHFB BLAZE [id number] MHFB 09:41:00 12:55:00 MAYLIN 2021-09-24 2021-09-24 Outpatient Myra, MHSL MHSL [id number] 09:41:00 12:55:00 Maylin Mckee 2021-09-04 2021-09-04 Office Myra [facility] [id number] [place] 11:00:00 11:40:44 Visit Maylin Ochoa [id number] [facility] Medical [id number] Group [id number] [address] 2021-09-04 2021-09-04 Office Myra [facility] [id number] [place] 11:00:00 11:40:44 Visit Maylin Ochoa [id number] He [facility] Medical [id number] Group [id number] [address] y 2021-08-02 2021-08-02 Outpatient GC_TNC_Cher PRIV PRIV [id number] [facility] 03:52:00 03:52:00 ches_I [id number] Medica l 2021-08-02 2021-08-02 Calvin Jazmine PRIV [facility] [id number] [facility] 00:00[facility]00 [facility]:00[facility] 6[address] GC_TNC_Sout [facility], Office* [address], [place] [address] , Ph. 2021-08-02 2021-08-02 Outpatient [facility] PRIV [id number] 00:00:00 00:00:00 Calvin Lucero [id number] 2021-08-01 2021-08-01 Outpatient GC_TNC_Cher PRIV PRIV [id number] [id number] [facility] 04:15:00 04:15:00 ches_I [id number] Medica l 2021-03-27 2021-03-27 Office MAURISIO Alcaraz [id number] [place] 09:44:55 10:51:06 Visit Maylin DE [place] [id number] H [facility] [id number] BUILDING [id number] 2020-12-21 2020-12-21 Outpatient GC_TNC_Cher PRIV PRIV [id number] [facility] 12:54:00 12:54:00 ches_I [id number] Medica l 2019-12-21 2019-12-23 Phone nullFlavo MHMG [id number] [facility]oria 14:33:32 04:59:59 Message r Cardiology 00 l Addie gale 2019-12-21 2019-12-22 Outpatient MHMG [facility] [id number] 09:33:32 23:59:59 00 2019-05-03 2019-05-23 Inpatient nullFlavo TIRR [id number] Memoria 02:04:00 22:00:00 Rehab r [facility] 09 l Don Ochoa 2019-05-02 2019-05-23 Outpatient RAMO Hedrick MHTIRR [id number] 21:04:00 17:00:00 Ababebeto Banegas 2019-04-18 2019-05-18 Tots nullFlavo TIRR [id number] Memoria 14:45:00 04:59:00 Therapy r [facility] 01 [facility] 2019-04-18 2019-05-17 Outpatient Master, MHTIRR TIRR [id number] 09:45:00 23:59:00 Calvin Lucero 2019-05-17 2019-05-17 Tots nullFlavo TIRR [id number] Memoria 13:00:00 13:00:00 Therapy r [facility] 09 [facility] 2019-05-17 2019-05-17 Outpatient Master, TIRR TIRR [id number] 08:00:00 08:00:00 Calvin Lucero 09 2019-05-02 2019-05-03 Observatio nullFlavo [facility] [id number] Memoria 18:31:00 02:00:00 n [facility] 51 [facility] 2019-05-02 2019-05-02 Outpatient Ledy, [facility] [id number] 13:31:00 21:00:00 Darryl 51 2019-04-22 2019-05-01 Inpatient nullFlavo TIRR [id number] Memoria 23:16:00 16:41:00 Rehab r [facility] 08 [facility] 2019-04-22 2019-05-01 Outpatient Gris, TIRR TIRR [id number] 18:16:00 11:41:00 Eagle 08 2019-04-19 2019-04-22 Inpatient nullFlavo [facility] [id number] Memoria 22:49:00 22:10:00 r Hilton 39 [facility] 2019-04-19 2019-04-22 Outpatient Freedom, [facility] [id number] 17:49:00 17:10:00 Basia 39 Florencia 2019-04-19 2019-04-20 [place] [id number] Memoria 15:36:00 04:59:00 r Outpatient 07 [facility] ([facility]) 2019-04-19 2019-04-19 Outpatient Radha-Isma TIRR TIRR [id number] 10:36:00 23:59:00 Franco salgado 2019-03-19 2019-04-18 Tots nullFlavo TIRR [id number] Memoria 14:00:00 04:59:00 Therapy r [facility] 08 l Don Don 2019-03-19 2019-04-17 Outpatient Galen, MHTIRR MHTIRR [id number] 09:00:00 23:59:00 Heath Wilson 2019-02-17 2019-03-19 Tots nullFlavo TIRR [id number] Memoria 05:00:00 04:59:00 Therapy r [facility] 07 l [facility] 2019-02-17 2019-03-18 Outpatient Galen, MHTIRR MHTIRR [id number] 00:00:00 23:59:00 Heath Wilson 2019-03-16 2019-03-17 [place] [id number] Memoria 13:07:00 04:59:00 r Fidelina 05 l [facility] ([facility] 2019-03-16 2019-03-16 Outpatient Radha-Gu MHTIRR MHTIRR [id number] 08:07:00 23:59:00 naomiElle [facility] 2019-03-02 2019-03-03 [place]Flavo TR BT- [id number] Memoria 13:30:00 04:59:00 r Tomás [facility]air l [facility] 2019-03-02 2019-03-02 Outpatient Radha-Gu MHTIRR MHTIRR [id number] 08:30:00 23:59:00 naomiTabby Regina 2019-01-18 2019-02-17 Tots nullFlavo TIRR [id number] Memoria 14:00:00 04:59:00 Therapy r [facility] 06 l [facility] 2019-01-18 2019-02-16 Outpatient Galen, MHTIRR MHTIRR [id number] 09:00:00 23:59:00 Heath Wilson 2018-12-18 2019-01-17 Tots nullFlavo TIRR [id number] Memoria 15:00:00 04:59:00 Therapy r [facility] 05 l [facility] 2018-12-18 2019-01-16 Outpatient Galen MHTIRR MHTIRR [id number] 10:00:00 23:59:00 Heath Wilson 05 2018-11-20 2018-12-20 Tots nullFlavo TIRR [id number] Memoria 14:00:00 04:59:00 Therapy r Gigi 04 l Don Ochoa 2018-11-20 2018-12-19 Outpatient Galen MHTIRR MHTIRR [id number] 09:00:00 23:59:00 Heath Wilson 2018-12-15 2018-12-16 [place] [id number] Memoria 14:59:00 04:59:00 r Fidelina 03 l [facility] Herm chris ([facility]) 2018-12-15 2018-12-15 Outpatient Radha-Gu MHTIRR MHTIRR [id number] 09:59:00 23:59:00 naomiJessika Regina 2018-11-30 2018-12-01 [place] [id number] Memoria 14:57:00 04:59:00 r Fidelina 02 l [facility] 2018-11-30 2018-11-30 Outpatient Radha-Gu MHTIRR MHTIRR [id number] 09:57:00 23:59:00 naomiSukhdeep 2018-10-20 2018-11-19 Tots nullFlavo TIRR [id number] Memoria 17:00:00 04:59:00 Therapy r Gigi 03 amadro Guerreroann 2018-10-20 2018-11-18 Outpatient Galen, MHTIRR MHTIRR [id number] 11:00:00 23:59:00 Heath Wilson 2018-09-20 2018-10-20 Tots nullFlavo TIRR [id number] Memoria 14:00:00 05:59:00 Therapy r Gigi 02 amador Ochoa 2018-09-20 2018-10-19 Outpatient Galen, MHTIRR MHTIRR [id number] 08:00:00 23:59:00 Heath Wilson 2018-08-19 2018-09-18 Tots nullFlavo TIRR [id number] Memoria 13:00:00 05:59:00 Therapy r Gigi 01 amador Ochoa 2018-08-19 2018-09-17 Outpatient Galen [facility] [id number] 07:00:00 23:59:00 Heath Wilson 2018-08-19 2018-09-17 Outpatient Galen [facility] [id number] 07:00:00 23:59:00 Heath Wilson 2018-07-20 2018-08-19 Tots nullFlavo TIRR [id number] Memoria 14:00:00 05:59:00 Therapy r [facility] 00 l Don Guerreroann 2018-07-20 2018-08-18 Outpatient Galen [facility] [id number] 08:00:00 23:59:00 Heath Wilson 2018-06-17 2018-07-17 Tots nullFlavo TIRR [id number] Memoria 18:55:00 05:59:00 Therapy r [facility] 00 l Don Guerreroann 2018-06-17 2018-07-16 Outpatient Galen [facility] [id number] 13:55:00 23:59:00 Heath Wilson Results Test Description Test Time Test Comments Results Result Comments Source [facility] 2021-09-24 15:49:00 Test Item Value Reference Range Interpretation Comme nts Glucose Lvl (test code = Glucose Lvl) 81 70-99 [facility] [id number] 15:49:00 Test Item Value Reference Range Interpretation Comments BUN (test code = BUN) 15 7-22 [facility] WorthHazelMailCONE [id number] 15:49:00 Test Item Value Reference Range Interpretation Comments Creatinine Lvl (test code = Creatinine 0.37 0.50-1.40 Lvl) [facility] [id number] 15:49:00 Test Item Value Reference Range Interpretation Comments Sodium Lvl (test code = Sodium Lvl) 136 135-145 [facility] [id number] 15:49:00 Test Item Value Reference Range Interpretation Comments Potassium Lvl (test code = Potassium 4.0 3.5-5.1 Lvl) [facility] [id number] 15:49:00 Test Item Value Reference Range Interpretation Comments Chloride Lvl (test code = Chloride Lvl) 103 95-109 [facility] [id number] 15:49:00 Test Item Value Reference Range Interpretation Comments CO2 (test code = CO2) 31 24-32 [facility]2022-02-01 15:49:00 Test Item Value Reference Range Interpretation Comments Calcium Lvl (test code = Calcium Lvl) 8.9 8.5-10.5 [facility]2022-02-01 15:49:00 Test Item Value Reference Range Interpretation Comments AGAP (test code = AGAP) 6.0 10.0-20.0 [facility]2022-02-01 15:49:00 Test Item Value Reference Range Interpretation Comments eGFR (test code = eGFR) 122 [facility]2019-09-30 11:36:00 Test Item Value Reference Range Interpretation Comments Magnesium Lvl (test code = Magnesium 2.3 1.8-2.4 Lvl) [facility]GTTOV[facility]U0229-20-91 11:36:00 Test Item Value Reference Range Interpretation Comments AGAP (test code = AGAP) 13.7 10.0-20.0 [facility]TyfwukbMYXNYRSAPQMS4387-20-05 11:36:00 Test Item Value Reference Range Interpretation Comments B/C Ratio (test code = B/C Ratio) 34 1 6-25 [facility]JejejlcUJYSBUBDPFAP2832-29-41 11:36:00 Test Item Value Reference Range Interpretation Comments Globulin (test code = Globulin) 4.6 2.7-4.2 [facility] HospitalGfdenyvXGRASQVOJXJA8755-39-50 11:36:00 Test Item Value Reference Range Interpretation Comments A/G Ratio (test code = A/G Ratio) 0.7 1 0.7-1.6 [facility] HospitalFuxberuBHXFIQMMNWPT4571-33-12 11:36:00 Test Item Value Reference Range Interpretation Comments ALT (test code = ALT) 98 See_Comment [Auto mated message] The system which ge nerated this result transmit libia reference range : <=65. The reference range was not used to interpr et this result as brandan l/abnormal. [facility] HospitalDnmmxaeHAWZFZBBAHKG3403-50-73 11:36:00 Test Item Value Reference Range Interpretation Comments Albumin Lvl (test code = Albumin Lvl) 3.0 3.5-5.0 [facility] HospitalNnkkaxgNTDTKLPMOXYN2761-75-30 11:36:00 Test Item Value Reference Range Interpretation Comments Alk Phos (test code = Alk Phos) 95 39-136 [facility] HospitalCqayhctRMPHVJNNBTTJ4248-85-59 11:36:00 Test Item Value Reference Range Interpretation Comments Glucose Lvl (test code = Glucose Lvl) 86 70-99 [facility] HospitalCbeaxqeRVKBUUERNUVI0542-11-90 11:36:00 Test Item Value Reference Range Interpretation Comments BUN (test code = BUN) 16 7-22 [facility] HospitalSlqsdebNTYCGIXXNYTE8573-16-68 11:36:00 Test Item Value Reference Range Interpretation Comments Creatinine Lvl (test code = Creatinine 0.47 0.50-1.40 Lvl) [facility] HospitalShdfprzKXEZRQATXZJC1222-54-22 11:36:00 Test Item Value Reference Range Interpretation Comments Sodium Lvl (test code = Sodium Lvl) 139 135-145 [facility] HospitalXwehgqnVEKSBLUVXMBP6523-17-51 11:36:00 Test Item Value Reference Range Interpretation Comments Potassium Lvl (test code = Potassium 4.7 3.5-5.1 Lvl) [facility] HospitalBvvyyfrYCPOPDCIOYPU3722-93-15 11:36:00 Test Item Value Reference Range Interpretation Comments Chloride Lvl (test code = Chloride Lvl) 104 95-109 [facility] HospitalErrbtblKDQFXFPRVLBR5899-07-80 11:36:00 Test Item Value Reference Range Interpretation Comments CO2 (test code = CO2) 26 24-32 [facility] HospitalZsbuijsKFBIONSTJNAS1411-97-81 11:36:00 Test Item Value Reference Range Interpretation Comments Calcium Lvl (test code = Calcium Lvl) 9.5 8.5-10.5 [facility] HospitalVarejdtGLEQSBTKQLLF6395-72-54 11:36:00 Test Item Value Reference Range Interpretation Comments Bili Total (test code = Bili Total) 0.5 0.2-1.3 [facility] HospitalWuzdmjuBBINHKHIRIAW4132-97-76 11:36:00 Test Item Value Reference Range Interpretation Comments Total Protein (test code = Total 7.6 6.4-8.4 Protein) [facility] HospitalExonsyzKKJLSNJLFTVR3488-64-55 11:36:00 Test Item Value Reference Range Interpretation Comments AST (test code = AST) 63 See_Comment [Auto mated message] The system which ge nerated this result transmit libia reference range : <=37. The reference range was not used to interpr et this result as brandan l/abnormal. [facility] HospitalDtnzhneZDHHMKZSPSCN3900-60-92 11:36:00 Test Item Value Reference Range Interpretation Comments eGFR (test code = eGFR) [address] [facility] [facility] HospitalCbewvltWKNTBHPJYT7046-04-85 11:36:00 Test Item Value Reference Range Interpretation Comments Segs (test code = Segs) 52.0 45.0-75.[address] [facility] HospitalTfxkpahMFAHRUMPEA8645-03-17 11:36:00 Test Item Value Reference Range Interpretation Comments Lymphocytes (test code = Lymphocytes) 39.0 20.0-40.[address] [facility] HospitalQmgzksmQEMXHMMMEC9006-80-39 11:36:00 Test Item Value Reference Range Interpretation Comments Monocytes (test code = Monocytes) 6.2 2.0-12.[address] [facility] HospitalLqgcwqnIQDWSFDDBE3210-25-22 11:36:00 Test Item Value Reference Range Interpretation Comments Eosinophils (test code = 2.0 See_Comment [A utomated message] The Eosinophils) system which ge nerated this result tra nsmitted reference range : <=4.0. The reference r myra was not used to int erpret this result as normal/abnormal . [facility] HospitalPtwjvqdAYSPGZOVXN9819-62-66 11:36:00 Test Item Value Reference Range Interpretation Comments Basophils (test code = 0.8 See_Comment [Aut omated message] The Basophils) system which ge nerated this result tra nsmitted reference range : <=1.0. The reference r myra was not used to int erpret this result as normal/abnormal . [facility] HospitalBsbcudsSXHOTEULEX1193-39-12 11:36:00 Test Item Value Reference Range Interpretation Comments Neutrophils # (test code = Neutrophils 3.9 1.5-8.1 #) [facility] HospitalAzawqiyRTMFGRUALH0154-59-97 11:36:00 Test Item Value Reference Range Interpretation Comments Lymphocytes # (test code = Lymphocytes 2.9 1.0-5.5 #) [facility] HospitalXkmpllnWPDYZXOXIC4712-03-08 11:36:00 Test Item Value Reference Range Interpretation Comments Monocytes # (test code 0.5 See_Comment [Aut omated message] The = Monocytes #) system which generated this result tra nsmitted reference range : <=0.8. The reference r myra was not used to int erpret this result as normal/abnormal . [facility] HospitalIgndepkJIHHYWMVPD6742-29-72 11:36:00 Test Item Value Reference Range Interpretation Comments Eosinophils # (test code 0.2 See_Comment [A utomated message] The = Eosinophils #) system whic h generated this result tra nsmitted reference range : <=0.5. The reference r myra was not used to int erpret this result as normal/abnormal . [facility] HospitalEuezahoQAURWNPVDP3129-10-86 11:36:00 Test Item Value Reference Range Interpretation Comments Basophils # (test code 0.1 See_Comment [Aut omated message] The = Basophils #) system which generated this result tra nsmitted reference range : <=0.2. The reference r myra was not used to int erpret this result as normal/abnormal . [facility] HospitalKtbzmfxNPPFMDUTJF0113-26-37 11:36:00 Test Item Value Reference Range Interpretation Comments WBC (test code = WBC) 7.4 3.7-10.[address] [facility] HospitalVirrdtkJXHAELUGXT8435-73-51 11:36:00 Test Item Value Reference Range Interpretation Comments RBC (test code = RBC) 4.36 4.20-5.[address] [facility] HospitalHuuqmnmLQKDOWHJGI6822-28-83 11:36:00 Test Item Value Reference Range Interpretation Comments Hgb (test code = Hgb) 11.8 12.0-16.[address] [facility] HospitalDogyytmUFWQADZNGZ0555-59-48 11:36:00 Test Item Value Reference Range Interpretation Comments Hct (test code = Hct) 35.9 36.0-48.[address] [facility] [facility] HospitalRwewiokBFPXTZAAVL0201-62-95 11:36:00 Test Item Value Reference Range Interpretation Comments MCV (test code = MCV) 82.2 80.0-98.[address] [facility] HospitalLdjlwgfPCZYXGUGQR8285-65-87 11:36:00 Test Item Value Reference Range Interpretation Comments MCH (test code = MCH) 27.1 pg 27.0-31.[address] [facility] HospitalHirandkTYZOGJFMQS9224-51-44 11:36:00 Test Item Value Reference Range Interpretation Comments MCHC (test code = MCHC) 33.0 32.0-36.[address] [facility] HospitalBnouczlTOAUIIYAXT6080-74-26 11:36:00 Test Item Value Reference Range Interpretation Comments RDW (test code = RDW) 17.4 11.5-14.[address] [facility] HospitalMjmkozoLEJTLFWYQZ7121-72-33 11:36:00 Test Item Value Reference Range Interpretation Comments Platelet (test code = Platelet) 531 133-[address] [facility] HospitalCdzwmyfTEPKOEYWOS7985-80-65 11:36:00 Test Item Value Reference Range Interpretation Comments MPV (test code = MPV) 9.1 7.4-10.4 [facility]ShuozvtIAJNXZCZWJGI4046-39-89 11:11:00 Test Item Value Reference Range Interpretation Comments AGAP (test code = AGAP) 13.9 10.0-20.0 [facility] HospitalNtrxckbTJMELSZOVTEV2738-31-89 11:11:00 Test Item Value Reference Range Interpretation Comments Glucose Lvl (test code = Glucose Lvl) 90 70-99 [facility] HospitalPxsjdibEGUQRLWWIMCJ7234-48-24 11:11:00 Test Item Value Reference Range Interpretation Comments BUN (test code = BUN) 8 7-22 [facility] HospitalWridtheVCILXTZQGKJT8320-42-07 11:11:00 Test Item Value Reference Range Interpretation Comments Creatinine Lvl (test code = Creatinine 0.31 0.50-1.40 Lvl) [facility]iuogsbIIOHDFPTOKNN2266-44-32 11:11:00 Test Item Value Reference Range Interpretation Comments Sodium Lvl (test code = Sodium Lvl) 140 135-145 [facility]LibldedKFQGSCOXHQQL9995-39-46 11:11:00 Test Item Value Reference Range Interpretation Comments Potassium Lvl (test code = Potassium 3.9 3.5-5.1 Lvl) [facility]EvjdbikLXPYETSAWEBD2358-15-73 11:11:00 Test Item Value Reference Range Interpretation Comments Chloride Lvl (test code = Chloride Lvl) 106 95-109 [facility]SzpiqciFBTJFANDVEMR0200-41-33 11:11:00 Test Item Value Reference Range Interpretation Comments CO2 (test code = CO2) 24 24-32 [facility] HospitalKvkaqumJADANQNQQJVU4310-16-59 11:11:00 Test Item Value Reference Range Interpretation Comments Calcium Lvl (test code = Calcium Lvl) 8.9 8.5-10.5 [facility]QfeohaeUUQKQOMIEGKF6882-50-59 11:11:00 Test Item Value Reference Range Interpretation Comments eGFR (test code = eGFR) [address] [facility] HospitalYtqutyaKBZGLBYUBR0288-15-83 11:11:00 Test Item Value Reference Range Interpretation Comments WBC (test code = WBC) 5.6 3.7-10.[address] [facility] HospitalSuridtzLINAQRRBLN6940-53-04 11:11:00 Test Item Value Reference Range Interpretation Comments RBC (test code = RBC) 4.29 4.20-5.[address] [facility] HospitalQbwwicwWSKRAWJXRY1212-63-98 11:11:00 Test Item Value Reference Range Interpretation Comments Hgb (test code = Hgb) 11.7 12.0-16.[address] [facility] HospitalSkxahdxWXMUVEDQTF1425-42-45 11:11:00 Test Item Value Reference Range Interpretation Comments Hct (test code = Hct) 34.7 36.0-48.[address] [facility] HospitalWpuskspWNGPPDFAMU7223-17-13 11:11:00 Test Item Value Reference Range Interpretation Comments MCV (test code = MCV) 81.0 80.0-98.[address] [facility] HospitalTynkvacNVPVOWOAIR9013-23-66 11:11:00 Test Item Value Reference Range Interpretation Comments MCH (test code = MCH) 27.2 pg 27.0-31.[address] [facility] HospitalClzvvkiRMFBUAFVSI0682-13-88 11:11:00 Test Item Value Reference Range Interpretation Comments MCHC (test code = MCHC) 33.6 32.0-36.[address] [facility] HospitalXjoxxalMXYOSRPWOG5764-40-52 11:11:00 Test Item Value Reference Range Interpretation Comments RDW (test code = RDW) 16.7 11.5-14.[address] [facility] HospitalGxbfunqDUNWVSCHZP0693-84-86 11:11:00 Test Item Value Reference Range Interpretation Comments Platelet (test code = Platelet) 320 133-[address] [facility] HospitalEwidxuqZBKRTVIPLY2318-80-82 11:11:00 Test Item Value Reference Range Interpretation Comments MPV (test code = MPV) 9.2 7.4-10.[address] [facility] HospitalNcjrcgzZEDPXQVCZI0118-15-44 11:11:00 Test Item Value Reference Range Interpretation Comments Segs (test code = Segs) 60.0 45.0-75.[address] [facility] HospitalOhaacgbEPUUMXWQEE0622-13-49 11:11:00 Test Item Value Reference Range Interpretation Comments Lymphocytes (test code = Lymphocytes) 25.0 20.0-40.[address] [facility] HospitalXglfefxNUAWKFNDYC2451-38-27 11:11:00 Test Item Value Reference Range Interpretation Comments Monocytes (test code = Monocytes) 13.9 2.0-12.[address] [facility] HospitalSfybdlqXJSQLVQYBW8753-54-36 11:11:00 Test Item Value Reference Range Interpretation Comments Eosinophils (test code = 0.5 See_Comment [A utomated message] The Eosinophils) system which ge nerated this result tra nsmitted reference range : <=4.0. The reference r myra was not used to int erpret this result as normal/abnormal . [facility] HospitalDbdnnqbJLBVYVWPXK2060-21-64 11:11:00 Test Item Value Reference Range Interpretation Comments Basophils (test code = 0.6 See_Comment [Aut omated message] The Basophils) system which ge nerated this result tra nsmitted reference range : <=1.0. The reference r myra was not used to int erpret this result as normal/abnormal . [facility] HospitalBdevoxaGYFZQBBQTN9368-61-63 11:11:00 Test Item Value Reference Range Interpretation Comments Neutrophils # (test code = Neutrophils 3.4 1.5-8.1 #) [facility] HospitalFjcgjgyJFPJMTKUDX1821-19-23 11:11:00 Test Item Value Reference Range Interpretation Comments Lymphocytes # (test code = Lymphocytes 1.4 1.0-5.5 #) [facility] HospitalOngondtRNCIHVRWRF3108-64-81 11:11:00 Test Item Value Reference Range Interpretation Comments Monocytes # (test code 0.8 See_Comment [Aut omated message] The = Monocytes #) system which generated this result tra nsmitted reference range : <=0.8. The reference r myra was not used to int erpret this result as normal/abnormal . [facility] HospitalAoofsoiPHQOMCROAY9539-26-46 11:11:00 Test Item Value Reference Range Interpretation Comments Polychrom (test code = Polychrom) Slight [facility] HospitalCxuyosmVNNMAHIIKG3465-97-72 11:11:00 Test Item Value Reference Range Interpretation Comments Large Plt (test code = Large Plt) Slight [facility] StationTOBRAMYCIN:SUSC:PT:ISOLATE:ORDQN:[id number] 21:01:00 Test Item Value Reference Range Interpretation Comments Culture: Catheter Tip <15 Colonies Serratia (test code = Culture: marcescens Catheter Tip) [facility] StationTOBRAMYCIN:SUSC:PT:ISOLATE:ORDQN:[id number] 21:01:00 Test Item Value Reference Range Interpretation Comments Serratia marcescens (test Serratia marcescens code = Serratia marcescens) [facility] StationMOLECULAR TPSPNUHAVN4045-13-74 14:37:00 Test Item Value Reference Range Interpretation Comments Source Respiratory Nasophrngl Swb Panel PCR (test code = *NA*(05/17/19 9:37 AM) Source Respiratory Panel PCR) [facility]2019-09-24 14:37:00 Test Item Value Reference Range Interpretation Comments Influenza A PCR (test Negative *NA*(05/17/19 code = Influenza A PCR) 9:37 AM) [facility]2019-09-24 14:37:00 Test Item Value Reference Range Interpretation Comments Influenza B PCR (test Negative *NA*(05/17/19 code = Influenza B PCR) 9:37 AM) [facility]2019-09-24 14:37:00 Test Item Value Reference Range Interpretation Comments RSV PCR (test code = Negative *NA*(05/17/19 RSV PCR) 9:37 AM) [facility] HospitalSzuivrsQSWYONDWGT7356-85-47 09:38:00 Test Item Value Reference Range Interpretation Comments Plt Morph (test code = Normal (05/17/19 4:38 Plt Morph) AM) [facility] HospitalUmujlbgNKQILEDEGM6698-05-74 09:38:00 Test Item Value Reference Range Interpretation Comments Segs (test code = Segs) 66.0 45.0-75.[address] [facility] HospitalVwjlwsmOEMQWLPSPL7881-24-73 09:38:00 Test Item Value Reference Range Interpretation Comments Lymphocytes (test code = Lymphocytes) 21.5 20.0-40.[address] [facility] HospitalRgxelehGWZWWALRFX2973-97-52 09:38:00 Test Item Value Reference Range Interpretation Comments Monocytes (test code = Monocytes) 10.1 2.0-12.[address] [facility] HospitalVyhnnekSKZDKAXMCZ7612-89-58 09:38:00 Test Item Value Reference Range Interpretation Comments Eosinophils (test code = 1.7 See_Comment [A utomated message] The Eosinophils) system which ge nerated this result tra nsmitted reference range : <=4.0. The reference r myra was not used to int erpret this result as normal/abnormal . [facility] HospitalYwsdxxzUGQARMQTCZ3772-23-96 09:38:00 Test Item Value Reference Range Interpretation Comments Basophils (test code = 0.7 See_Comment [Aut omated message] The Basophils) system which ge nerated this result tra nsmitted reference range : <=1.0. The reference r myra was not used to int erpret this result as normal/abnormal . [facility] HospitalXwxdahvUYQSWCOEJK0927-69-98 09:38:00 Test Item Value Reference Range Interpretation Comments Neutrophils # (test code = Neutrophils 2.4 1.5-8.1 #) [facility] HospitalFbmxtjmVTABKKTHIP5473-78-27 09:38:00 Test Item Value Reference Range Interpretation Comments Lymphocytes # (test code = Lymphocytes 0.8 1.0-5.5 #) [facility] HospitalIkwnxdnHERVEBUKNQ0762-83-89 09:38:00 Test Item Value Reference Range Interpretation Comments Monocytes # (test code 0.4 See_Comment [Aut omated message] The = Monocytes #) system which generated this result tra nsmitted reference range : <=0.8. The reference r myra was not used to int erpret this result as normal/abnormal . [facility] HospitalNwlnjllPBVUYKYEHH5510-51-52 09:38:00 Test Item Value Reference Range Interpretation Comments Eosinophils # (test code 0.1 See_Comment [A utomated message] The = Eosinophils #) system whic h generated this result tra nsmitted reference range : <=0.5. The reference r myra was not used to int erpret this result as normal/abnormal . [facility] HospitalWpzsyqbGXJRLCQOWE8270-25-39 09:38:00 Test Item Value Reference Range Interpretation Comments WBC (test code = WBC) 3.6 3.7-10.[address] [facility] HospitalTlulzpoXRKNMLVZJT0803-46-21 09:38:00 Test Item Value Reference Range Interpretation Comments RBC (test code = RBC) 4.18 4.20-5.[address] [facility] HospitalGbdxwaxQGWBIZGLVU7439-23-66 09:38:00 Test Item Value Reference Range Interpretation Comments Hgb (test code = Hgb) 11.2 12.0-16.[address] [facility] HospitalGiqyztxXDDUEDHABK7053-64-07 09:38:00 Test Item Value Reference Range Interpretation Comments Hct (test code = Hct) 34.2 36.0-48.[address] [facility] HospitalDtfkopsHNZLLFQUCK3443-44-93 09:38:00 Test Item Value Reference Range Interpretation Comments MCV (test code = MCV) 81.7 80.0-98.[address] [facility] HospitalFzudjdyXRBODOPJGG0904-97-85 09:38:00 Test Item Value Reference Range Interpretation Comments MCH (test code = MCH) 26.8 pg 27.0-31.[address] [facility] HospitalXtbaehsKDBKPUGJYS9913-91-18 09:38:00 Test Item Value Reference Range Interpretation Comments MCHC (test code = MCHC) 32.7 32.0-36.[address] [facility] HospitalSgytvfnEAGRQTUORW0315-18-60 09:38:00 Test Item Value Reference Range Interpretation Comments RDW (test code = RDW) 17.1 11.5-14.[address] [facility] HospitalYcwfvciWNGOMUBTZZ9610-13-58 09:38:00 Test Item Value Reference Range Interpretation Comments Platelet (test code = Platelet) 306 133-[address] [facility] HospitalSyzfrckQWUEYESIZS3950-01-28 09:38:00 Test Item Value Reference Range Interpretation Comments MPV (test code = MPV) 9.3 7.4-10.4 [facility] AND [id number] 20:22:00 Test Item Value Reference Range Interpretation Comments UA Color (test code = Light Yellow UA Color) *NA*(05/16/19 3:22 PM) [facility] AND [id number] 20:22:00 Test Item Value Reference Range Interpretation Comments UA Turbidity (test code Slight *ABN*(05/16/19 = UA Turbidity) 3:22 PM) [facility] AND [id number] 20:22:00 Test Item Value Reference Range Interpretation Comments UA Spec Grav (test code = UA Spec 1.006 1 Grav) [facility] AND [id number] 20:22:00 Test Item Value Reference Range Interpretation Comments UA pH (test code = UA pH) 7.0 1 5.0-8.0 [facility] AND [id number] 20:22:00 Test Item Value Reference Range Interpretation Comments UA Protein (test code = UA Negative mg/dL Protein) [facility] AND [id number] 20:22:00 Test Item Value Reference Range Interpretation Comments UA Glucose (test code = UA Negative mg/dL Glucose) [facility] AND [id number] 20:22:00 Test Item Value Reference Range Interpretation Comments UA Ketones (test code = UA Negative mg/dL Ketones) [facility] AND [id number] 20:22:00 Test Item Value Reference Range Interpretation Comments UA Bili (test code = Negative *NA*(9/23/19 UA Bili) 3:22 PM) [facility] [id number] 20:22:00 Test Item Value Reference Range Interpretation Comments UA Blood (test code = Negative (05/16/19 3:22 [facility]A Blood) PM) [facility] [id number] 20:22:00 Test Item Value Reference Range Interpretation Comments UA Urobilinogen (test code = UA no gt 0.1-1.0 Urobilinogen) [facility] [id number] 20:22:00 Test Item Value Reference Range Interpretation Comments UA Nitrite (test code Negative (05/16/19 3:22 = UA Nitrite) PM) [facility] [id number] 20:22:00 Test Item Value Reference Range Interpretation Comments UA Leuk Est (test code Trace *ABN*(05/16/19 = UA Leuk Est) 3:22 PM) [facility] [id number] 20:22:00 Test Item Value Reference Range Interpretation Comments UA Sq Epi (test code = UA Sq Occasional /LPF Epi) [facility] [id number] 20:22:00 Test Item Value Reference Range Interpretation Comments UA WBC (test code = 8 See_Comment [Automa libia message] The UA WBC) system which ge nerated this result transmit libia reference range : <=5. The reference range was not used to interpr et this result as brandan l/abnormal. [facility] [id number] 20:22:00 Test Item Value Reference Range Interpretation Comments UA RBC (test code = no gt See_Comment [Automa libia message] The UA RBC) system which ge nerated this result transmit libia reference range : <=2. The reference range was not used to interpr et this result as brandan l/abnormal. [facility] [id number] 20:22:00 Test Item Value Reference Range Interpretation Comments UA Bacteria (test code = UA Many /HPF Bacteria) [facility] [id number] 20:22:00 Test Item Value Reference Range Interpretation Comments UA Mucus (test code = UA Mucus) Few /LPF [facility] [id number] 20:22:00 Test Item Value Reference Range Interpretation Comments UA Renal Epi (test code = UA Renal Epi) 1 [facility] [id number] 20:22:00 Test Item Value Reference Range Interpretation Comments UA Amorph Magaly (test code = Occasional /HPF UA Amorph Magaly) [facility] [id number] 19:18:00 Test Item Value Reference Range Interpretation Comments Lactic Acid Lvl (test code = Lactic 1.6 0.5-2.2 Acid Lvl) [facility] [id number] 11:25:00 Test Item Value Reference Range Interpretation Comments Magnesium Lvl (test code = Magnesium 1.9 1.8-2.4 Lvl) [facility]OncqigjCOVKMJKGHZEA9070-07-31 11:25:00 Test Item Value Reference Range Interpretation Comments AGAP (test code = AGAP) 13.8 10.0-20.0 [facility]IecyochBWVAFSKLVLED6796-98-61 11:25:00 Test Item Value Reference Range Interpretation Comments B/C Ratio (test code = B/C Ratio) 29 1 6-25 [facility] HospitalWfxsiguLDMIWFDNZUGS7201-90-27 11:25:00 Test Item Value Reference Range Interpretation Comments Globulin (test code = Globulin) 4.7 2.7-4.2 [facility] HospitalCygyiryTHAZWKETIZPC6687-68-25 11:25:00 Test Item Value Reference Range Interpretation Comments A/G Ratio (test code = A/G Ratio) 0.6 1 0.7-1.6 [facility] HospitalNxpuhukNIZCVYYXQHWS6283-58-87 11:25:00 Test Item Value Reference Range Interpretation Comments ALT (test code = ALT) 120 See_Comment [Auto mated message] The system which ge nerated this result transmit libia reference range : <=65. The reference range was not used to interpr et this result as brandan l/abnormal. [facility] HospitalBjvuolsXMMPDDXOHGPQ9727-31-27 11:25:00 Test Item Value Reference Range Interpretation Comments Albumin Lvl (test code = Albumin Lvl) 2.7 3.5-5.0 [facility]YtuemjdQXXGPCBYOPRM7183-69-46 11:25:00 Test Item Value Reference Range Interpretation Comments Alk Phos (test code = Alk Phos) 114 39-136 [facility] HospitalEdqkurzDAVOKITVRTLM9253-74-59 11:25:00 Test Item Value Reference Range Interpretation Comments Glucose Lvl (test code = Glucose Lvl) 134 70-99 [facility] HospitalCgpjvmxWGHASETHQUMR8719-94-66 11:25:00 Test Item Value Reference Range Interpretation Comments BUN (test code = BUN) 11 7-22 [facility] HospitalFryzjaqINUNXFGATGZT8582-72-68 11:25:00 Test Item Value Reference Range Interpretation Comments Creatinine Lvl (test code = Creatinine 0.38 0.50-1.40 Lvl) [facility] HospitalSwxfkylEDBMBGABXZPV0751-76-41 11:25:00 Test Item Value Reference Range Interpretation Comments Sodium Lvl (test code = Sodium Lvl) 136 135-145 [facility] HospitalCrfntlyRQCDOQMYVOFH9280-49-95 11:25:00 Test Item Value Reference Range Interpretation Comments Potassium Lvl (test code = Potassium 3.8 3.5-5.1 Lvl) [facility] HospitalJqnquplFYOVIZVGMDHO7090-57-73 11:25:00 Test Item Value Reference Range Interpretation Comments Chloride Lvl (test code = Chloride Lvl) 100 95-109 [facility] HospitalYsrxoqhDENOYDGTSRRX6648-41-42 11:25:00 Test Item Value Reference Range Interpretation Comments CO2 (test code = CO2) 26 24-32 [facility] HospitalRolmoeyWWWHLXCWHGBV7382-11-40 11:25:00 Test Item Value Reference Range Interpretation Comments Calcium Lvl (test code = Calcium Lvl) 8.6 8.5-10.5 [facility] HospitalJslraeoNOEQQGTWTMVO6453-47-26 11:25:00 Test Item Value Reference Range Interpretation Comments Bili Total (test code = Bili Total) 0.6 0.2-1.3 [facility] HospitalDgjwjzgBZOUQTVGRYKK4984-25-62 11:25:00 Test Item Value Reference Range Interpretation Comments Total Protein (test code = Total 7.4 6.4-8.4 Protein) [facility] HospitalGutujfvPLRNQPLNNCXQ4157-21-85 11:25:00 Test Item Value Reference Range Interpretation Comments AST (test code = AST) 59 See_Comment [Auto mated message] The system which ge nerated this result transmit libia reference range : <=37. The reference range was not used to interpr et this result as brandan l/abnormal. [facility] HospitalEpljxdgQFKBZAALLULJ0406-20-29 11:25:00 Test Item Value Reference Range Interpretation Comments eGFR (test code = eGFR) 123 [facility] StationRvgcdntVUKFWDCVZT9624-83-76 11:25:00 Test Item Value Reference Range Interpretation Comments Basophils # (test code 0.1 See_Comment [Aut omated message] The = Basophils #) system which generated this result tra nsmitted reference range : <=0.2. The reference r myra was not used to int erpret this result as normal/abnormal . [facility]2019-09-23 11:25:00 Test Item Value Reference Range Interpretation Comments E. coli (test code = Not Detected (05/16/19 E. coli) 6:25 AM) [facility]2019-09-23 11:25:00 Test Item Value Reference Range Interpretation Comments K. oxytoca (test code Not Detected (05/16/19 = K. oxytoca) 6:25 AM) [facility]2019-09-23 11:25:00 Test Item Value Reference Range Interpretation Comments K. pneumoniae (test code Not Detected (05/16/19 = K. pneumoniae) 6:25 AM) [facility]2019-09-23 11:25:00 Test Item Value Reference Range Interpretation Comments P. aeruginosa (test code Not Detected (05/16/19 = P. aeruginosa) 6:25 AM) [facility]2019-09-23 11:25:00 Test Item Value Reference Range Interpretation Comments Acinetobacter spp. (test Not Detected code = Acinetobacter (05/16/19 6:25 AM) spp.) [facility]2019-09-23 11:25:00 Test Item Value Reference Range Interpretation Comments Citrobacter spp. (test Not Detected (05/16/19 code = Citrobacter spp.) 6:25 AM) [facility]2019-09-23 11:25:00 Test Item Value Reference Range Interpretation Comments Enterobacter spp. (test Not Detected code = Enterobacter spp.) (05/16/19 6:25 AM) [facility]2019-09-23 11:25:00 Test Item Value Reference Range Interpretation Comments Proteus spp. (test Not Detected (05/16/19 code = Proteus spp.) 6:25 AM) [facility]2019-09-23 11:25:00 Test Item Value Reference Range Interpretation Comments CTX-M (ESBL) (test Not Detected (05/16/19 code = CTX-M (ESBL)) 6:25 AM) [facility]2019-09-23 11:25:00 Test Item Value Reference Range Interpretation Comments IMP (carbapenemase) Not Detected (05/16/19 (test code = IMP 6:25 AM) (carbapenemase)) [facility]2019-09-23 11:25:00 Test Item Value Reference Range Interpretation Comments KPC (carbapenemase) Not Detected (05/16/19 (test code = KPC 6:25 AM) (carbapenemase)) [facility] [id number] 11:25:00 Test Item Value Reference Range Interpretation Comments NDM (carbapenemase) Not Detected (05/16/19 (test code = NDM 6:25 AM) (carbapenemase)) [facility]2019-09-23 11:25:00 Test Item Value Reference Range Interpretation Comments OXA (carbapenemase) Not Detected (05/16/19 (test code = OXA 6:25 AM) (carbapenemase)) [facility]2019-09-23 11:25:00 Test Item Value Reference Range Interpretation Comments VIM (carbapenemase) Not Detected (05/16/19 (test code = VIM 6:25 AM) (carbapenemase)) [facility] [id number] 19:18:00 Test Item Value Reference Range Interpretation Comments Lactic Acid Lvl (test code = Lactic 1.5 0.5-2.2 Acid Lvl) [facility] [id number] 19:18:00 Test Item Value Reference Range Interpretation Comments Procalcitonin Lvl (test 0.05 See_Comment [Au tomated message] code = Procalcitonin Lvl) Th e system which generated this result transmitted ref erence range: <=0.10. The reference range was not used to interpr et this result as normal/abnormal . [facility] StationGnyvlxnAHZDZTWODV4469-67-26 19:18:00 Test Item Value Reference Range Interpretation Comments Eosinophils # (test code 0.1 See_Comment [A utomated message] The = Eosinophils #) system whic h generated this result tra nsmitted reference range : <=0.5. The reference r myra was not used to int erpret this result as normal/abnormal . [facility] HospitalNvgvbpvNQPUCYSNVP8725-42-39 19:18:00 Test Item Value Reference Range Interpretation Comments Basophils # (test code 0.1 See_Comment [Aut omated message] The = Basophils #) system which generated this result tra nsmitted reference range : <=0.2. The reference r myra was not used to int erpret this result as normal/abnormal . [facility]2019-09-16 11:09:00 Test Item Value Reference Range Interpretation Comments Magnesium Lvl (test code = Magnesium 2.1 1.8-2.4 Lvl) [facility]2019-09-16 11:09:00 Test Item Value Reference Range Interpretation Comments B/C Ratio (test code = B/C Ratio) 32 1 6-25 [facility]2019-09-16 11:09:00 Test Item Value Reference Range Interpretation Comments Globulin (test code = Globulin) 5.2 2.7-4.2 [facility]2019-09-16 11:09:00 Test Item Value Reference Range Interpretation Comments A/G Ratio (test code = A/G Ratio) 0.5 1 0.7-1.6 [facility]2019-09-16 11:09:00 Test Item Value Reference Range Interpretation Comments ALT (test code = ALT) 133 See_Comment [Auto mated message] The system which ge nerated this result transmit libia reference range : <=65. The reference range was not used to interpr et this result as brandan l/abnormal. [facility]2019-09-16 11:09:00 Test Item Value Reference Range Interpretation Comments Albumin Lvl (test code = Albumin Lvl) 2.7 3.5-5.0 [facility] [place]2019-09-16 11:09:00 Test Item Value Reference Range Interpretation Comments Alk Phos (test code = Alk Phos) 128 39-136 [facility] [place]2019-09-16 11:09:00 Test Item Value Reference Range Interpretation Comments Bili Total (test code = Bili Total) 0.6 0.2-1.3 [facility] [place]2019-09-16 11:09:00 Test Item Value Reference Range Interpretation Comments Total Protein (test code = Total 7.9 6.4-8.4 Protein) [facility] [place]2019-09-16 11:09:00 Test Item Value Reference Range Interpretation Comments AST (test code = AST) 93 See_Comment [Auto mated message] The system which ge nerated this result transmit libia reference range : <=37. The reference range was not used to interpr et this result as brandan l/abnormal. [employer] [id number] 11:03:00 Test Item Value Reference Range Interpretation Comments Phosphorus (test code = Phosphorus) 3.4 2.5-4.5 [facility] CiryimqXSMOUFQKNU1267-07-14 11:02:00 Test Item Value Reference Range Interpretation Comments Prealbumin (test code = Prealbumin) 22.3 18.0-45.0 [facility] [id number] 08:19:00 Test Item Value Reference Range Interpretation Comments ABO/Rh (test code = ABO/Rh) A POS [facility] [place] [id number] 08:19:00 Test Item Value Reference Range Interpretation Comments Antibody Scrn (test Negative (05/02/19 3:19 code = Antibody Scrn) AM) [employer] [id number] 11:03:00 Test Item Value Reference Range Interpretation Comments Magnesium Lvl (test code = Magnesium 2.2 1.8-2.4 Lvl) [employer] [id number] 11:03:00 Test Item Value Reference Range Interpretation Comments Phosphorus (test code = Phosphorus) 4.8 2.5-4.5 [facility] UxzyayaPAYQRSTPRDCW2182-15-24 11:03:00 Test Item Value Reference Range Interpretation Comments AGAP (test code = AGAP) 11.8 10.0-20.0 [facility] JgmkyzzNDLUZOYJDIKW6999-05-10 11:03:00 Test Item Value Reference Range Interpretation Comments B/C Ratio (test code = B/C Ratio) 59 1 6-25 [facility] LxwvwptIBBZFYNHECHF3522-52-67 11:03:00 Test Item Value Reference Range Interpretation Comments Globulin (test code = Globulin) 4.0 2.7-4.2 [facility] KiobwcsIIHUSKGUWBYH3506-97-38 11:03:00 Test Item Value Reference Range Interpretation Comments A/G Ratio (test code = A/G Ratio) 0.7 1 0.7-1.6 [facility]xythGAECINPQJKDJ1410-42-68 11:03:00 Test Item Value Reference Range Interpretation Comments Glucose Lvl (test code = Glucose Lvl) 101 70-99 [facility]QapqkubVNYXJVILBNDT2318-82-08 11:03:00 Test Item Value Reference Range Interpretation Comments BUN (test code = BUN) 20 7-22 [facility]XkjuupfJRIRLXXUQOFL9761-44-88 11:03:00 Test Item Value Reference Range Interpretation Comments Creatinine Lvl (test code = Creatinine 0.34 0.50-1.40 Lvl) [facility]CklgtdbSKJRNDEEFFGS2310-26-88 11:03:00 Test Item Value Reference Range Interpretation Comments Sodium Lvl (test code = Sodium Lvl) 139 135-145 [facility]XlaojtxMXYUYQNRALDS3244-53-22 11:03:00 Test Item Value Reference Range Interpretation Comments Potassium Lvl (test code = Potassium 4.8 3.5-5.1 Lvl) [facility]MwadpjhQSTIUDZZXJSJ6181-59-10 11:03:00 Test Item Value Reference Range Interpretation Comments Chloride Lvl (test code = Chloride Lvl) 106 95-109 [facility] HospitalBktpkcqMXVJJMUYZMKP0008-67-64 11:03:00 Test Item Value Reference Range Interpretation Comments CO2 (test code = CO2) 26 24-32 [facility]MqlcibfKYGJIJSKUEIZ4117-99-48 11:03:00 Test Item Value Reference Range Interpretation Comments Calcium Lvl (test code = Calcium Lvl) 9.2 8.5-10.5 [facility] HospitalRyltkfoAVZFVPTPWDTF4240-57-67 11:03:00 Test Item Value Reference Range Interpretation Comments Total Protein (test code = Total 6.8 6.4-8.4 Protein) [facility]ZvqfudyRIWDLMPXKIER4969-31-14 11:03:00 Test Item Value Reference Range Interpretation Comments Albumin Lvl (test code = Albumin Lvl) 2.8 3.5-5.0 [facility] HospitalVyhbjimSFBZJWAMJPIR0788-76-46 11:03:00 Test Item Value Reference Range Interpretation Comments ALT (test code = ALT) 72 See_Comment [Auto mated message] The system which ge nerated this result transmit libia reference range : <=65. The reference range was not used to interpr et this result as brandan l/abnormal. [facility] HospitalAlhmogaIRGNHKHVROBQ9205-69-64 11:03:00 Test Item Value Reference Range Interpretation Comments AST (test code = AST) 66 See_Comment [Auto mated message] The system which ge nerated this result transmit libia reference range : <=37. The reference range was not used to interpr et this result as brandan l/abnormal. [facility] HospitalVaoykveVZNJCMJNVYYN2858-44-95 11:03:00 Test Item Value Reference Range Interpretation Comments Alk Phos (test code = Alk Phos) 79 39-136 [facility] HospitalMurtwaeSOVIIUCUPOQL4930-25-14 11:03:00 Test Item Value Reference Range Interpretation Comments Bili Total (test code = Bili Total) 0.6 0.2-1.3 [facility] HospitalMrdvbdkDDVMKVIBTGSV1583-23-62 11:03:00 Test Item Value Reference Range Interpretation Comments eGFR (test code = eGFR) [address] [facility] HospitalQojyajuOMWOHLKZWV0011-70-81 11:03:00 Test Item Value Reference Range Interpretation Comments WBC (test code = WBC) 4.9 3.7-10.[address] [facility] HospitalUsmmyvyLSSCHSUQZR1254-94-30 11:03:00 Test Item Value Reference Range Interpretation Comments RBC (test code = RBC) 4.76 4.20-5.[address] [facility] HospitalAtggepgAUFXGRBDYJ3150-05-60 11:03:00 Test Item Value Reference Range Interpretation Comments Hgb (test code = Hgb) 12.7 12.0-16.[address] [facility] HospitalMnvynguNJTQDDCAPZ8000-79-87 11:03:00 Test Item Value Reference Range Interpretation Comments Hct (test code = Hct) 38.9 36.0-48.[address] [facility] HospitalIqotociZZFFHVWARU2862-17-26 11:03:00 Test Item Value Reference Range Interpretation Comments MCV (test code = MCV) 81.8 80.0-98.[address] [facility] HospitalPauenmfQLNWYYZXDJ9221-59-34 11:03:00 Test Item Value Reference Range Interpretation Comments MCH (test code = MCH) 26.7 pg 27.0-31.[address] [facility] HospitalIslazdbIZEBAPLREL0391-83-71 11:03:00 Test Item Value Reference Range Interpretation Comments MCHC (test code = MCHC) 32.6 32.0-36.[address] [facility] HospitalDnuunivZBKXPBRIKU3567-67-67 11:03:00 Test Item Value Reference Range Interpretation Comments RDW (test code = RDW) 15.0 11.5-14.[address] [facility] HospitalDnhjoajCPURHBAFAP2080-40-47 11:03:00 Test Item Value Reference Range Interpretation Comments Platelet (test code = Platelet) 268 133-[address] [facility] HospitalNpjlcwmKYKHPSXURL4869-25-61 11:03:00 Test Item Value Reference Range Interpretation Comments MPV (test code = MPV) 9.5 7.4-10.[address] [facility] HospitalCfxglphXKTUDHGSNX1041-10-62 11:03:00 Test Item Value Reference Range Interpretation Comments Segs (test code = Segs) 51.8 45.0-75.[address] [facility] HospitalAmzqwfpMSDQQPVLYE9392-23-92 11:03:00 Test Item Value Reference Range Interpretation Comments Lymphocytes (test code = Lymphocytes) 33.0 20.0-40.[address] [facility] HospitalFwapdxoSWFAKICAXA0270-02-19 11:03:00 Test Item Value Reference Range Interpretation Comments Monocytes (test code = Monocytes) 10.0 2.0-12.[address] [facility] HospitalViapzrkOOTHUMLWCP9360-65-64 11:03:00 Test Item Value Reference Range Interpretation Comments Eosinophils (test code = 3.8 See_Comment [A utomated message] The Eosinophils) system which ge nerated this result tra nsmitted reference range : <=4.0. The reference r myra was not used to int erpret this result as normal/abnormal . [facility] HospitalUqmzphnDCDEDSZZQN5453-32-28 11:03:00 Test Item Value Reference Range Interpretation Comments Basophils (test code = 1.4 See_Comment [Aut omated message] The Basophils) system which ge nerated this result tra nsmitted reference range : <=1.0. The reference r myra was not used to int erpret this result as normal/abnormal . [facility] HospitalKfdjilgJBPXPWCSKP6482-58-42 11:03:00 Test Item Value Reference Range Interpretation Comments Neutrophils # (test code = Neutrophils 2.6 1.5-8.1 #) [facility] HospitalHyrytahJYXZYTUDHE2527-76-04 11:03:00 Test Item Value Reference Range Interpretation Comments Lymphocytes # (test code = Lymphocytes 1.6 1.0-5.5 #) [facility] HospitalOdzkykdJRGHSTWLVV9921-65-13 11:03:00 Test Item Value Reference Range Interpretation Comments Monocytes # (test code 0.5 See_Comment [Aut omated message] The = Monocytes #) system which generated this result tra nsmitted reference range : <=0.8. The reference r myra was not used to int erpret this result as normal/abnormal . [facility] HospitalEzvtpnfMKXXRZWBSI6207-72-16 11:03:00 Test Item Value Reference Range Interpretation Comments Eosinophils # (test code 0.2 See_Comment [A utomated message] The = Eosinophils #) system whic h generated this result tra nsmitted reference range : <=0.5. The reference r myra was not used to int erpret this result as normal/abnormal . [facility] HospitalFkjwjgzUTLLVRFLGV3701-74-59 11:03:00 Test Item Value Reference Range Interpretation Comments Basophils # (test code 0.1 See_Comment [Aut omated message] The = Basophils #) system which generated this result tra nsmitted reference range : <=0.2. The reference r myra was not used to int erpret this result as normal/abnormal . [facility] [place]2019-09-05 10:35:00 Test Item Value Reference Range Interpretation Comments Glucose Lvl (test code = Glucose Lvl) 101 70-99 [facility] [place]2019-09-05 10:35:00 Test Item Value Reference Range Interpretation Comments BUN (test code = BUN) 11 7-22 [facility] [place]2019-09-05 10:35:00 Test Item Value Reference Range Interpretation Comments Creatinine Lvl (test code = Creatinine 0.23 0.50-1.40 Lvl) [facility] [place]2019-09-05 10:35:00 Test Item Value Reference Range Interpretation Comments Sodium Lvl (test code = Sodium Lvl) 143 135-145 [facility] [place]2019-09-05 10:35:00 Test Item Value Reference Range Interpretation Comments Potassium Lvl (test code = Potassium 3.8 3.5-5.1 Lvl) [facility] [place]2019-09-05 10:35:00 Test Item Value Reference Range Interpretation Comments Chloride Lvl (test code = Chloride Lvl) 108 95-109 [facility] [place]2019-09-05 10:35:00 Test Item Value Reference Range Interpretation Comments CO2 (test code = CO2) 27 24-32 [facility] [place]2019-09-05 10:35:00 Test Item Value Reference Range Interpretation Comments Calcium Lvl (test code = Calcium Lvl) 8.9 8.5-10.5 [facility] [place]2019-09-05 10:35:00 Test Item Value Reference Range Interpretation Comments AGAP (test code = AGAP) 11.8 10.0-20.0 [facility] [place]2019-09-05 10:35:00 Test Item Value Reference Range Interpretation Comments eGFR (test code = eGFR) 145 [facility] [place]2019-09-05 10:35:00 Test Item Value Reference Range Interpretation Comments Magnesium Lvl (test code = Magnesium 2.1 1.8-2.4 Lvl) [facility] HospitalHxyurcnSIMZABWSID0525-55-55 10:35:00 Test Item Value Reference Range Interpretation Comments Segs (test code = Segs) 64.6 45.0-75.[address] [facility] HospitalOlacwaoBAWWLFSUYL6736-55-96 10:35:00 Test Item Value Reference Range Interpretation Comments Lymphocytes (test code = Lymphocytes) 22.0 20.0-40.[address] [facility] HospitalXqytrskGVDHNJEWEJ4800-75-07 10:35:00 Test Item Value Reference Range Interpretation Comments Monocytes (test code = Monocytes) 9.9 2.0-12.[address] [facility] HospitalNaatgntVNBLYKSEFL2053-78-30 10:35:00 Test Item Value Reference Range Interpretation Comments Eosinophils (test code = 2.5 See_Comment [A utomated message] The Eosinophils) system which ge nerated this result tra nsmitted reference range : <=4.0. The reference r myra was not used to int erpret this result as normal/abnormal . [facility] HospitalYmfsayqZJNELWATWH6538-81-70 10:35:00 Test Item Value Reference Range Interpretation Comments Basophils (test code = 1.0 See_Comment [Aut omated message] The Basophils) system which ge nerated this result tra nsmitted reference range : <=1.0. The reference r myra was not used to int erpret this result as normal/abnormal . [facility] HospitalBquktspPHRNJBTPKE3835-51-85 10:35:00 Test Item Value Reference Range Interpretation Comments Neutrophils # (test code = Neutrophils 3.8 1.5-8.1 #) [facility] HospitalGietthwMNPKNWANMX2081-11-51 10:35:00 Test Item Value Reference Range Interpretation Comments Lymphocytes # (test code = Lymphocytes 1.3 1.0-5.5 #) [facility] HospitalUnvunbnGCADNAIVOM2944-66-36 10:35:00 Test Item Value Reference Range Interpretation Comments Monocytes # (test code 0.6 See_Comment [Aut omated message] The = Monocytes #) system which generated this result tra nsmitted reference range : <=0.8. The reference r myra was not used to int erpret this result as normal/abnormal . [facility] HospitalZutqeepYJULQFTNXR4842-13-60 10:35:00 Test Item Value Reference Range Interpretation Comments Eosinophils # (test code 0.2 See_Comment [A utomated message] The = Eosinophils #) system whic h generated this result tra nsmitted reference range : <=0.5. The reference r myra was not used to int erpret this result as normal/abnormal . [facility] HospitalXduvbunEEEJKZBJQO1771-01-50 10:35:00 Test Item Value Reference Range Interpretation Comments Basophils # (test code 0.1 See_Comment [Aut omated message] The = Basophils #) system which generated this result tra nsmitted reference range : <=0.2. The reference r myra was not used to int erpret this result as normal/abnormal . [facility] HospitalIdpdazqQNYKNHUIWJ6865-04-66 10:35:00 Test Item Value Reference Range Interpretation Comments WBC (test code = WBC) 5.9 3.7-10.[address] [facility] HospitalXwvdjqkFTJNUIZTRZ7302-54-62 10:35:00 Test Item Value Reference Range Interpretation Comments RBC (test code = RBC) 4.55 4.20-5.[address] [facility] HospitalAilyckdJPMVPYJVFX6725-57-39 10:35:00 Test Item Value Reference Range Interpretation Comments Hgb (test code = Hgb) 12.1 12.0-16.[address] [facility] HospitalJusfhthLOMPGRNKPN3926-79-98 10:35:00 Test Item Value Reference Range Interpretation Comments Hct (test code = Hct) 36.3 36.0-48.[address] [facility] HospitalJrrdsymSXTFVCIBBR7950-03-88 10:35:00 Test Item Value Reference Range Interpretation Comments MCV (test code = MCV) 79.8 80.0-98.[address] [facility] HospitalNqofmxxHJJXJGJWUV4254-91-92 10:35:00 Test Item Value Reference Range Interpretation Comments MCH (test code = MCH) 26.5 pg 27.0-31.[address] [facility] HospitalLimohheWBSRMFCTQW5604-11-34 10:35:00 Test Item Value Reference Range Interpretation Comments MCHC (test code = MCHC) 33.3 32.0-36.[address] [facility] HospitalWyyvrvvOXLZXMQJHG0186-61-71 10:35:00 Test Item Value Reference Range Interpretation Comments RDW (test code = RDW) 14.9 11.5-14.[address] [facility] HospitalPmqwvxvKYDRNFMNIP2992-35-28 10:35:00 Test Item Value Reference Range Interpretation Comments Platelet (test code = Platelet) 275 133-[address] [facility] HospitalAlquxbaMNQGQGLHCW1607-87-50 10:35:00 Test Item Value Reference Range Interpretation Comments MPV (test code = MPV) 9.6 7.4-10.4 [facility] [place]2019-09-04 11:51:00 Test Item Value Reference Range Interpretation Comments Phosphorus (test code = Phosphorus) 3.8 2.5-4.5 [facility] [place]2019-09-04 11:51:00 Test Item Value Reference Range Interpretation Comments Magnesium Lvl (test code = Magnesium 2.0 1.8-2.4 Lvl) [facility] [place]2019-09-04 11:51:00 Test Item Value Reference Range Interpretation Comments ALT (test code = ALT) 16 See_Comment [Auto mated message] The system which ge nerated this result transmit libia reference range : <=65. The reference range was not used to interpr et this result as brandan l/abnormal. [facility] [place]2019-09-04 11:51:00 Test Item Value Reference Range Interpretation Comments Albumin Lvl (test code = Albumin Lvl) 2.8 3.5-5.0 [facility] [place]2019-09-04 11:51:00 Test Item Value Reference Range Interpretation Comments Alk Phos (test code = Alk Phos) 70 39-136 [facility] [place]2019-09-04 11:51:00 Test Item Value Reference Range Interpretation Comments Glucose Lvl (test code = Glucose Lvl) 92 70-99 [facility] [place]2019-09-04 11:51:00 Test Item Value Reference Range Interpretation Comments BUN (test code = BUN) 11 7-22 [facility] [place]2019-09-04 11:51:00 Test Item Value Reference Range Interpretation Comments Creatinine Lvl (test code = Creatinine 0.38 0.50-1.40 Lvl) [facility] [place]2019-09-04 11:51:00 Test Item Value Reference Range Interpretation Comments Sodium Lvl (test code = Sodium Lvl) 141 135-145 [facility] [place]2019-09-04 11:51:00 Test Item Value Reference Range Interpretation Comments Potassium Lvl (test code = Potassium 3.1 3.5-5.1 Lvl) [facility] [place]2019-09-04 11:51:00 Test Item Value Reference Range Interpretation Comments Chloride Lvl (test code = Chloride Lvl) 104 95-109 [facility] [place]2019-09-04 11:51:00 Test Item Value Reference Range Interpretation Comments CO2 (test code = CO2) 28 24-32 [facility] [place]2019-09-04 11:51:00 Test Item Value Reference Range Interpretation Comments Calcium Lvl (test code = Calcium Lvl) 9.2 8.5-10.5 [facility] [place]2019-09-04 11:51:00 Test Item Value Reference Range Interpretation Comments Bili Total (test code = Bili Total) 0.7 0.2-1.3 [facility] [place]2019-09-04 11:51:00 Test Item Value Reference Range Interpretation Comments Total Protein (test code = Total 7.1 6.4-8.4 Protein) [facility] [place]2019-09-04 11:51:00 Test Item Value Reference Range Interpretation Comments AST (test code = AST) 20 See_Comment [Auto mated message] The system which ge nerated this result transmit libia reference range : <=37. The reference range was not used to interpr et this result as brandan l/abnormal. [facility] [place]2019-09-04 11:51:00 Test Item Value Reference Range Interpretation Comments AGAP (test code = AGAP) 12.1 10.0-20.0 [facility] [place]2019-09-04 11:51:00 Test Item Value Reference Range Interpretation Comments B/C Ratio (test code = B/C Ratio) 29 1 6-25 [facility] [place]2019-09-04 11:51:00 Test Item Value Reference Range Interpretation Comments Globulin (test code = Globulin) 4.3 2.7-4.2 [facility] [place]2019-09-04 11:51:00 Test Item Value Reference Range Interpretation Comments A/G Ratio (test code = A/G Ratio) 0.7 1 0.7-1.6 [facility] [place]2019-09-04 11:51:00 Test Item Value Reference Range Interpretation Comments eGFR (test code = eGFR) [address] [facility] HospitalEtljxniSQTMVNNZFQ0315-15-98 11:51:00 Test Item Value Reference Range Interpretation Comments Segs (test code = Segs) 60.5 45.0-75.[address] [facility] HospitalDhtqhhqCQTMWPZBCJ1704-01-77 11:51:00 Test Item Value Reference Range Interpretation Comments Lymphocytes (test code = Lymphocytes) 27.0 20.0-40.[address] [facility] HospitalBkxjxgsVSKRLUVDYI8311-55-44 11:51:00 Test Item Value Reference Range Interpretation Comments Monocytes (test code = Monocytes) 10.4 2.0-12.[address] [facility] HospitalRinkxcjCYBCUYLIOW4870-62-01 11:51:00 Test Item Value Reference Range Interpretation Comments Eosinophils (test code = 1.4 See_Comment [A utomated message] The Eosinophils) system which ge nerated this result tra nsmitted reference range : <=4.0. The reference r myra was not used to int erpret this result as normal/abnormal . [facility] HospitalDwypjozRDJACOTKZO0867-61-75 11:51:00 Test Item Value Reference Range Interpretation Comments Basophils (test code = 0.7 See_Comment [Aut omated message] The Basophils) system which ge nerated this result tra nsmitted reference range : <=1.0. The reference r myra was not used to int erpret this result as normal/abnormal . [facility] HospitalLfftglvRDWXPHNXFZ3341-08-02 11:51:00 Test Item Value Reference Range Interpretation Comments Neutrophils # (test code = Neutrophils 4.2 1.5-8.1 #) [facility] HospitalYuzehapMLXNEYTYAI9514-98-07 11:51:00 Test Item Value Reference Range Interpretation Comments Lymphocytes # (test code = Lymphocytes 1.9 1.0-5.5 #) [facility] HospitalSeuteepJRMVGOCAYF4613-04-74 11:51:00 Test Item Value Reference Range Interpretation Comments Monocytes # (test code 0.7 See_Comment [Aut omated message] The = Monocytes #) system which generated this result tra nsmitted reference range : <=0.8. The reference r myra was not used to int erpret this result as normal/abnormal . [facility] HospitalLykpoobDAEJNGHKDS0416-45-63 11:51:00 Test Item Value Reference Range Interpretation Comments Eosinophils # (test code 0.1 See_Comment [A utomated message] The = Eosinophils #) system whic h generated this result tra nsmitted reference range : <=0.5. The reference r myra was not used to int erpret this result as normal/abnormal . [facility] HospitalUzyorjwTYPDMFRGIG5036-61-92 11:51:00 Test Item Value Reference Range Interpretation Comments Basophils # (test code 0.1 See_Comment [Aut omated message] The = Basophils #) system which generated this result tra nsmitted reference range : <=0.2. The reference r myra was not used to int erpret this result as normal/abnormal . [facility] HospitalVrdxbepAMXJIJBSAI2691-88-45 11:51:00 Test Item Value Reference Range Interpretation Comments WBC (test code = WBC) 6.9 3.7-10.[address] [facility] HospitalRooxwitUWCLSGEOOM0497-79-97 11:51:00 Test Item Value Reference Range Interpretation Comments RBC (test code = RBC) 4.94 4.20-5.[address] [facility] HospitalIqvvkhsLGLCOMKPIG5960-17-21 11:51:00 Test Item Value Reference Range Interpretation Comments Hgb (test code = Hgb) 13.1 12.0-16.[address] [facility] HospitalJvnmyjeINNASBYEUD3142-72-52 11:51:00 Test Item Value Reference Range Interpretation Comments Hct (test code = Hct) 39.1 36.0-48.[address] [facility] HospitalUpfziziMXMWKGRVNX4984-12-03 11:51:00 Test Item Value Reference Range Interpretation Comments MCV (test code = MCV) 79.0 80.0-98.[address] [facility] HospitalWpcafsfNTQDNZAUCK5364-75-76 11:51:00 Test Item Value Reference Range Interpretation Comments MCH (test code = MCH) 26.6 pg 27.0-31.[address] [facility] HospitalEucdbuoSPPIYJHDHN4367-19-51 11:51:00 Test Item Value Reference Range Interpretation Comments MCHC (test code = MCHC) 33.6 32.0-36.[address] [facility] HospitalTitczkwJCUJPBDGKX7335-51-40 11:51:00 Test Item Value Reference Range Interpretation Comments RDW (test code = RDW) 15.0 11.5-14.[address] [facility] HospitalNmjobdzXZEYYFITJQ4873-63-22 11:51:00 Test Item Value Reference Range Interpretation Comments Platelet (test code = Platelet) 305 133-[address] [facility] HospitalOlixdlvXXZRIHZRPJ6250-17-03 11:51:00 Test Item Value Reference Range Interpretation Comments MPV (test code = MPV) 9.7 7.4-10.4 [facility] Station[facility]: [id number] 22:55:00 Test Item Value Reference Range Interpretation Comments Culture: Urine (test code = 100,000 cfu/ml Culture: Urine) [facility]ly [facility] AND [id number] 21:37:00 Test Item Value Reference Range Interpretation Comments UA Color (test code = Yellow *NA*(04/26/19 4:37 UA Color) PM) [facility]ly [facility] AND [id number] 21:37:00 Test Item Value Reference Range Interpretation Comments UA Turbidity (test code Slight *ABN*(04/26/19 = UA Turbidity) 4:37 PM) [facility]ly [facility] AND [id number] 21:37:00 Test Item Value Reference Range Interpretation Comments UA Spec Grav (test code = UA Spec 1.018 1 Grav) [facility]ly [facility] AND [id number] 21:37:00 Test Item Value Reference Range Interpretation Comments UA pH (test code = UA pH) 6.0 1 5.0-8.0 [facility] AND [id number] 21:37:00 Test Item Value Reference Range Interpretation Comments UA Protein (test code = UA Negative mg/dL Protein) [facility]ly [facility] AND [id number] 21:37:00 Test Item Value Reference Range Interpretation Comments UA Glucose (test code = UA Negative mg/dL Glucose) [facility]ly [facility] AND [id number] 21:37:00 Test Item Value Reference Range Interpretation Comments UA Ketones (test code = UA Ketones) 20 mg/dL [facility] AND [id number] 21:37:00 Test Item Value Reference Range Interpretation Comments UA Bili (test code = Negative *NA*(04/26/19 UA Bili) 4:37 PM) [facility]ly [facility] AND [id number] 21:37:00 Test Item Value Reference Range Interpretation Comments UA Blood (test code = Negative (04/26/19 4:37 UA Blood) PM) [facility]ly [facility] AND [id number] 21:37:00 Test Item Value Reference Range Interpretation Comments UA Urobilinogen (test code = UA no gt 0.1-1.0 Urobilinogen) [facility]ly [facility] AND [id number] 21:37:00 Test Item Value Reference Range Interpretation Comments UA Nitrite (test code Negative (04/26/19 4:37 = UA Nitrite) PM) [facility]ly [facility] AND [id number] 21:37:00 Test Item Value Reference Range Interpretation Comments UA Leuk Est (test code Trace *ABN*(04/26/19 4:37 = UA Leuk Est) PM) [facility]ly [facility] AND [id number] 21:37:00 Test Item Value Reference Range Interpretation Comments UA Sq Epi (test code = UA Sq Moderate /LPF Epi) [facility]ly [facility] AND [id number] 21:37:00 Test Item Value Reference Range Interpretation Comments UA WBC (test code = 19 See_Comment [Automa libia message] The UA WBC) system which ge nerated this result transmit libia reference range : <=5. The reference range was not used to interpr et this result as brandan l/abnormal. [facility] AND [id number] 21:37:00 Test Item Value Reference Range Interpretation Comments UA RBC (test code = 2 See_Comment [Automa libia message] The UA RBC) system which ge nerated this result transmit libia reference range : <=2. The reference range was not used to interpr et this result as brandna l/abnormal. [facility] AND [id number] 21:37:00 Test Item Value Reference Range Interpretation Comments UA Bacteria (test code = UA Occasional /HPF Bacteria) [facility]ly [facility] AND [id number] 21:37:00 Test Item Value Reference Range Interpretation Comments UA Mucus (test code = UA Mucus) Few /LPF [facility]ly [facility] AND [id number] 21:37:00 Test Item Value Reference Range Interpretation Comments UA Hyal Cast (test 1 See_Comment [Automat ed message] The code = UA Hyal Cast) system which generated this result transmit libia reference range : <=2. The reference range was not used to interpr et this result as brandan l/abnormal. [facility]2019-09-03 11:33:00 Test Item Value Reference Range Interpretation Comments Phosphorus (test code = Phosphorus) 4.2 2.5-4.5 [facility]2019-09-02 10:32:00 Test Item Value Reference Range Interpretation Comments Vitamin D 1,25 (OH)2 Total (test code = 33 Vitamin D 1,25 (OH)2 Total) [facility]2019-09-02 10:32:00 Test Item Value Reference Range Interpretation Comments Vitamin D2 1,25 (OH)2 (test code = no gt Vitamin D2 1,25 (OH)2) [facility]2019-09-02 10:32:00 Test Item Value Reference Range Interpretation Comments Vitamin D3 1,25 (OH)2 (test code = 33 Vitamin D3 1,25 (OH)2) [facility]2019-09-01 11:04:00 Test Item Value Reference Range Interpretation Comments B/C Ratio (test code = B/C Ratio) 15 1 6-25 [facility]2019-09-01 11:04:00 Test Item Value Reference Range Interpretation Comments Total Protein (test code = Total 7.8 6.4-8.4 Protein) [facility]2019-09-01 11:04:00 Test Item Value Reference Range Interpretation Comments Albumin Lvl (test code = Albumin Lvl) 3.2 3.5-5.0 [facility]2019-09-01 11:04:00 Test Item Value Reference Range Interpretation Comments Globulin (test code = Globulin) 4.6 2.7-4.2 [facility]2019-09-01 11:04:00 Test Item Value Reference Range Interpretation Comments A/G Ratio (test code = A/G Ratio) 0.7 1 0.7-1.6 [facility]2019-09-01 11:04:00 Test Item Value Reference Range Interpretation Comments ALT (test code = ALT) 18 See_Comment [Auto mated message] The system which ge nerated this result transmit libia reference range : <=65. The reference range was not used to interpr et this result as brandan l/abnormal. [facility]2019-09-01 11:04:00 Test Item Value Reference Range Interpretation Comments AST (test code = AST) 17 See_Comment [Auto mated message] The system which ge nerated this result transmit libia reference range : <=37. The reference range was not used to interpr et this result as brandan l/abnormal. [facility]2019-09-01 11:04:00 Test Item Value Reference Range Interpretation Comments Alk Phos (test code = Alk Phos) 74 39-136 [facility]2019-09-01 11:04:00 Test Item Value Reference Range Interpretation Comments Bili Total (test code = Bili Total) 0.6 0.2-1.3 [facility]2019-08-31 21:28:00 Test Item Value Reference Range Interpretation Comments Bili Direct (test code 0.2 See_Comment [Aut omated message] The = Bili Direct) system which generated this result tra nsmitted reference range : <=0.3. The reference r myra was not used to int erpret this result as brandan l/abnormal. [facility]2019-08-31 21:28:00 Test Item Value Reference Range Interpretation Comments Bili Indirect (test 0.4 See_Comment [Automa libia message] The code = Bili Indirect) system which generated this result tra nsmitted reference range : <=1.0. The reference r myra was not used to int erpret this result as normal/abnormal . [id number] 21:28:00 Test Item Value Reference Range Interpretation Comments PT (test code = PT) 13.8 s 12.0-14.[address] [facility] H[id number] 21:28:00 Test Item Value Reference Range Interpretation Comments INR (test code = INR) 1.08 1 0.85-1.[address] [facility] Hos[id number] 21:28:00 Test Item Value Reference Range Interpretation Comments PTT (test code = PTT) 28.9 s 22.9-35.8 [facility] StationJuenoqtWXUYNHXBCN4112-06-26 09:49:00 Test Item Value Reference Range Interpretation Comments Prealbumin (test code = Prealbumin) 11.7 18.0-45.0 [facility] StationEriqqrpSMMUWO5320-19-66 09:49:00 Test Item Value Reference Range Interpretation Comments CHD Risk (test code = CHD Risk) 5.57 1 3.90-5.80 [facility] StationXovvovvNEUDZE1893-62-36 09:49:00 Test Item Value Reference Range Interpretation Comments Trig (test code = Trig) 112 [id number] 09:49:00 Test Item Value Reference Range Interpretation Comments Chol (test code = Chol) 206 [facility] HospitalYdsgywvPKAOFN2337-15-05 09:49:00 Test Item Value Reference Range Interpretation Comments HDL (test code = HDL) 37 [facility] HospitalGaukdijBUMDHA6442-56-03 09:49:00 Test Item Value Reference Range Interpretation Comments LDL (Calculated) (test code = LDL 147 (Calculated)) [facility] HospitalFgsfjvlWWYVVG7523-54-58 09:49:00 Test Item Value Reference Range Interpretation Comments VLDL (test code = VLDL) 22 1 [facility]2019-08-30 10:13:00 Test Item Value Reference Range Interpretation Comments Vitamin B12 Lvl (test code = Vitamin no gt 323-1320 B12 Lvl) [facility]2019-08-30 10:13:00 Test Item Value Reference Range Interpretation Comments Glucose Lvl (test code = Glucose Lvl) 76 70-99 [facility]2019-08-30 10:13:00 Test Item Value Reference Range Interpretation Comments BUN (test code = BUN) 5 7-22 [facility]2019-08-30 10:13:00 Test Item Value Reference Range Interpretation Comments Creatinine Lvl (test code = Creatinine 0.30 0.50-1.40 Lvl) [facility]2019-08-30 10:13:00 Test Item Value Reference Range Interpretation Comments Sodium Lvl (test code = Sodium Lvl) 141 135-145 [facility]2019-08-30 10:13:00 Test Item Value Reference Range Interpretation Comments Potassium Lvl (test code = Potassium 3.4 3.5-5.1 Lvl) [facility]2019-08-30 10:13:00 Test Item Value Reference Range Interpretation Comments Chloride Lvl (test code = Chloride Lvl) 107 95-109 [facility]2019-08-30 10:13:00 Test Item Value Reference Range Interpretation Comments CO2 (test code = CO2) 21 24-32 [facility]2019-08-30 10:13:00 Test Item Value Reference Range Interpretation Comments Calcium Lvl (test code = Calcium Lvl) 8.5 8.5-10.5 [facility]2019-08-30 10:13:00 Test Item Value Reference Range Interpretation Comments Total Protein (test code = Total 6.9 6.4-8.4 Protein) [facility]2019-08-30 10:13:00 Test Item Value Reference Range Interpretation Comments Albumin Lvl (test code = Albumin Lvl) 2.8 3.5-5.0 [facility]2019-08-30 10:13:00 Test Item Value Reference Range Interpretation Comments ALT (test code = ALT) 19 See_Comment [Auto mated message] The system which ge nerated this result transmit libia reference range : <=65. The reference range was not used to interpr et this result as brandan l/abnormal. [facility]2019-08-30 10:13:00 Test Item Value Reference Range Interpretation Comments AST (test code = AST) 17 See_Comment [Auto mated message] The system which ge nerated this result transmit libia reference range : <=37. The reference range was not used to interpr et this result as brandan l/abnormal. [facility]2019-08-30 10:13:00 Test Item Value Reference Range Interpretation Comments Alk Phos (test code = Alk Phos) 65 39-136 [facility]2019-08-30 10:13:00 Test Item Value Reference Range Interpretation Comments Bili Total (test code = Bili Total) 0.7 0.2-1.3 [facility]2019-08-30 10:13:00 Test Item Value Reference Range Interpretation Comments eGFR (test code = eGFR) 133 [facility]2019-08-30 10:13:00 Test Item Value Reference Range Interpretation Comments AGAP (test code = AGAP) 16.4 10.0-20.0 [facility]2019-08-30 10:13:00 Test Item Value Reference Range Interpretation Comments B/C Ratio (test code = B/C Ratio) 17 1 6-25 [facility]2019-08-30 10:13:00 Test Item Value Reference Range Interpretation Comments Globulin (test code = Globulin) 4.1 2.7-4.2 [facility]2019-08-30 10:13:00 Test Item Value Reference Range Interpretation Comments A/G Ratio (test code = A/G Ratio) 0.7 1 0.7-1.6 [facility]2019-08-30 10:13:00 Test Item Value Reference Range Interpretation Comments Magnesium Lvl (test code = Magnesium 1.9 1.8-2.4 Lvl) [facility]2019-08-30 10:13:00 Test Item Value Reference Range Interpretation Comments Phosphorus (test code = Phosphorus) 2.4 2.5-4.[address] [facility] HospitalGlutltgWFZPRFWDYM3832-30-90 10:13:00 Test Item Value Reference Range Interpretation Comments WBC (test code = WBC) 6.4 3.7-10.[address] [facility] HospitalOnzstvxYTHOAJNVFW5779-79-08 10:13:00 Test Item Value Reference Range Interpretation Comments RBC (test code = RBC) 4.33 4.20-5.[address] [facility] HospitalBnxncrvIIFREGDKOL1663-02-17 10:13:00 Test Item Value Reference Range Interpretation Comments Hgb (test code = Hgb) 11.9 12.0-16.[address] [facility] HospitalFqwfgjaEDSSVFOYVI1769-36-12 10:13:00 Test Item Value Reference Range Interpretation Comments Hct (test code = Hct) 34.8 36.0-48.[address] [facility] HospitalYuqsxuwFFSNDKYDZL4046-68-17 10:13:00 Test Item Value Reference Range Interpretation Comments MCV (test code = MCV) 80.3 80.0-98.[address] [facility] HospitalJskpzmxAZMZEFDKYS3747-02-17 10:13:00 Test Item Value Reference Range Interpretation Comments MCH (test code = MCH) 27.4 pg 27.0-31.[address] [facility] HospitalNcoidflSYWDFAWQTX5198-85-74 10:13:00 Test Item Value Reference Range Interpretation Comments MCHC (test code = MCHC) 34.1 32.0-36.[address] [facility] HospitalNwwfuqkPGTQGQGOYH1456-47-13 10:13:00 Test Item Value Reference Range Interpretation Comments RDW (test code = RDW) 14.6 11.5-14.[address] [facility] HospitalFxmhqgyDEQORRLQMV4137-85-94 10:13:00 Test Item Value Reference Range Interpretation Comments Platelet (test code = Platelet) 268 133-[address] [facility] HospitalFvobbbrNNBIZZNMEZ6862-43-17 10:13:00 Test Item Value Reference Range Interpretation Comments MPV (test code = MPV) 8.8 7.4-10.[address] [facility] HospitalAhqclkjSVNDICUILH2858-31-71 10:13:00 Test Item Value Reference Range Interpretation Comments Segs (test code = Segs) 66.7 45.0-75.[address] [facility] HospitalMoqwodwJHBVREUPZB6872-41-72 10:13:00 Test Item Value Reference Range Interpretation Comments Lymphocytes (test code = Lymphocytes) 24.3 20.0-40.[address] [facility] HospitalYlzahgfVSTITCRDZN5807-68-46 10:13:00 Test Item Value Reference Range Interpretation Comments Monocytes (test code = Monocytes) 7.3 2.0-12.[address] [facility] HospitalZycbsfmSEGPKPAVLF1999-37-51 10:13:00 Test Item Value Reference Range Interpretation Comments Eosinophils (test code = 1.3 See_Comment [A utomated message] The Eosinophils) system which ge nerated this result tra nsmitted reference range : <=4.0. The reference r myra was not used to int erpret this result as normal/abnormal . [facility] HospitalRymgisaHQHDJFCBVY4938-85-50 10:13:00 Test Item Value Reference Range Interpretation Comments Basophils (test code = 0.4 See_Comment [Aut omated message] The Basophils) system which ge nerated this result tra nsmitted reference range : <=1.0. The reference r myra was not used to int erpret this result as normal/abnormal . [facility] HospitalQkwpfmjQNTXTDSQES3694-86-57 10:13:00 Test Item Value Reference Range Interpretation Comments Neutrophils # (test code = Neutrophils 4.3 1.5-8.1 #) [facility] HospitalJjwcllwXKZKCMRKOR6992-36-38 10:13:00 Test Item Value Reference Range Interpretation Comments Lymphocytes # (test code = Lymphocytes 1.6 1.0-5.5 #) [facility] HospitalBqmocxaEVNYXEMRSB0298-57-00 10:13:00 Test Item Value Reference Range Interpretation Comments Monocytes # (test code 0.5 See_Comment [Aut omated message] The = Monocytes #) system which generated this result tra nsmitted reference range : <=0.8. The reference r myra was not used to int erpret this result as normal/abnormal . [facility] HospitalYyodwhuNIRPGMKIGS6713-92-67 10:13:00 Test Item Value Reference Range Interpretation Comments Eosinophils # (test code 0.1 See_Comment [A utomated message] The = Eosinophils #) system Arisokoic h generated this result tra nsmitted reference range : <=0.5. The reference r myra was not used to int erpret this result as normal/abnormal . [facility]2019-08-29 09:21:00 Test Item Value Reference Range Interpretation Comments Glucose Lvl (test code = Glucose Lvl) 90 70-99 [facility]2019-08-29 09:21:00 Test Item Value Reference Range Interpretation Comments BUN (test code = BUN) 10 7-22 [facility]2019-08-29 09:21:00 Test Item Value Reference Range Interpretation Comments Creatinine Lvl (test code = Creatinine 0.33 0.50-1.40 Lvl) [facility]2019-08-29 09:21:00 Test Item Value Reference Range Interpretation Comments Sodium Lvl (test code = Sodium Lvl) 140 135-145 [facility]2019-08-29 09:21:00 Test Item Value Reference Range Interpretation Comments Potassium Lvl (test code = Potassium 4.2 3.5-5.1 Lvl) [facility]2019-08-29 09:21:00 Test Item Value Reference Range Interpretation Comments Chloride Lvl (test code = Chloride Lvl) 106 95-109 [facility]2019-08-29 09:21:00 Test Item Value Reference Range Interpretation Comments CO2 (test code = CO2) 20 24-32 [facility]2019-08-29 09:21:00 Test Item Value Reference Range Interpretation Comments Calcium Lvl (test code = Calcium Lvl) 8.9 8.5-10.5 [facility]2019-08-29 09:21:00 Test Item Value Reference Range Interpretation Comments eGFR (test code = eGFR) 129 [facility]2019-08-29 09:21:00 Test Item Value Reference Range Interpretation Comments AGAP (test code = AGAP) 18.2 10.0-20.[address] [facility] HospitalKhqunwyWCNJPSYLXL1126-49-26 09:21:00 Test Item Value Reference Range Interpretation Comments WBC (test code = WBC) 8.9 3.7-10.[address] [facility] HospitalDvzgtacDSCQVXQRCN3601-03-47 09:21:00 Test Item Value Reference Range Interpretation Comments RBC (test code = RBC) 4.95 4.20-5.[address] [facility] HospitalAtdbstyRFOFVCOCCR5907-73-72 09:21:00 Test Item Value Reference Range Interpretation Comments Hgb (test code = Hgb) 13.4 12.0-16.[address] [facility] HospitalVqoyqxxUQEMYGVMTV7619-51-98 09:21:00 Test Item Value Reference Range Interpretation Comments Hct (test code = Hct) 40.1 36.0-48.[address] [facility] HospitalNdmyodxLOIUCQRQID2896-52-72 09:21:00 Test Item Value Reference Range Interpretation Comments MCV (test code = MCV) 80.9 80.0-98.[address] [facility] HospitalZpfygrbBHPHHVQHTK8110-52-90 09:21:00 Test Item Value Reference Range Interpretation Comments MCH (test code = MCH) 27.0 pg 27.0-31.[address] [facility] HospitalZdjluhiIDSJXZJKJJ9126-76-63 09:21:00 Test Item Value Reference Range Interpretation Comments MCHC (test code = MCHC) 33.3 32.0-36.[address] [facility] HospitalBhbabcpIKGNHIFXFD9994-29-84 09:21:00 Test Item Value Reference Range Interpretation Comments RDW (test code = RDW) 14.3 11.5-14.[address] [facility] HospitalSvovzohJMQAZRLYFO7914-81-20 09:21:00 Test Item Value Reference Range Interpretation Comments Platelet (test code = Platelet) 343 133-[address] [facility] HospitalAhhuvxcYLQEQSTVKJ9270-71-98 09:21:00 Test Item Value Reference Range Interpretation Comments MPV (test code = MPV) 9.4 7.4-10.[address] [facility] HospitalEctnxzvSEHFRBZDOR0322-85-63 09:21:00 Test Item Value Reference Range Interpretation Comments Segs (test code = Segs) 74.5 45.0-75.[address] [facility] HospitalEnmwtsaAAAPCIREYZ1805-32-73 09:21:00 Test Item Value Reference Range Interpretation Comments Lymphocytes (test code = Lymphocytes) 16.9 20.0-40.[address] [facility] HospitalKdjynhqCLKIXIBGVZ2923-16-44 09:21:00 Test Item Value Reference Range Interpretation Comments Monocytes (test code = Monocytes) 7.7 2.0-12.[address] [facility] HospitalFvwjcrwTDCOZHJXPB4214-66-99 09:21:00 Test Item Value Reference Range Interpretation Comments Eosinophils (test code = 0.4 See_Comment [A utomated message] The Eosinophils) system which ge nerated this result tra nsmitted reference range : <=4.0. The reference r myra was not used to int erpret this result as normal/abnormal . [facility] HospitalBdopsehMMMYWCJTPP8676-00-62 09:21:00 Test Item Value Reference Range Interpretation Comments Basophils (test code = 0.5 See_Comment [Aut omated message] The Basophils) system which ge nerated this result tra nsmitted reference range : <=1.0. The reference r myra was not used to int erpret this result as normal/abnormal . [facility] HospitalQxzbksyKPKICPCUEY6677-15-47 09:21:00 Test Item Value Reference Range Interpretation Comments Neutrophils # (test code = Neutrophils 6.6 1.5-8.1 #) [facility] HospitalHsaqgtaMSOIZXHIXR3423-26-93 09:21:00 Test Item Value Reference Range Interpretation Comments Lymphocytes # (test code = Lymphocytes 1.5 1.0-5.5 #) [facility] HospitalKsxdtrrZTWLULVXEF8095-58-05 09:21:00 Test Item Value Reference Range Interpretation Comments Monocytes # (test code 0.7 See_Comment [Aut omated message] The = Monocytes #) system which generated this result tra nsmitted reference range : <=0.8. The reference r myra was not used to int erpret this result as normal/abnormal . [facility] [id number] 00:31:00 Test Item Value Reference Range Interpretation Comments U Preg (test code = U Negative (04/20/19 7:31 Preg) PM) [facility] ORZCJ0648-51-55 05:32:00 Test Item Value Reference Range Interpretation Comments Glucose Lvl (test code = Glucose Lvl) 93 70-99 [facility] [id number] 05:32:00 Test Item Value Reference Range Interpretation Comments BUN (test code = BUN) 15 7-22 [facility]2019-08-28 05:32:00 Test Item Value Reference Range Interpretation Comments Creatinine Lvl (test code = Creatinine 0.40 0.50-1.40 Lvl) [facility] [id number] 05:32:00 Test Item Value Reference Range Interpretation Comments Sodium Lvl (test code = Sodium Lvl) 143 135-145 [facility]2019-08-28 05:32:00 Test Item Value Reference Range Interpretation Comments Potassium Lvl (test code = Potassium 3.7 3.5-5.1 Lvl) [facility]2019-08-28 05:32:00 Test Item Value Reference Range Interpretation Comments Chloride Lvl (test code = Chloride Lvl) 106 95-109 [facility]2019-08-28 05:32:00 Test Item Value Reference Range Interpretation Comments CO2 (test code = CO2) 22 24-32 [facility]2019-08-28 05:32:00 Test Item Value Reference Range Interpretation Comments Calcium Lvl (test code = Calcium Lvl) 9.1 8.5-10.5 [facility]2019-08-28 05:32:00 Test Item Value Reference Range Interpretation Comments AGAP (test code = AGAP) 18.7 10.0-20.0 [facility]2019-08-28 05:32:00 Test Item Value Reference Range Interpretation Comments eGFR (test code = eGFR) 121 [facility]2019-08-28 05:32:00 Test Item Value Reference Range Interpretation Comments Total Protein (test code = Total 8.5 6.4-8.4 Protein) [facility]2019-08-28 05:32:00 Test Item Value Reference Range Interpretation Comments Albumin Lvl (test code = Albumin Lvl) 3.3 3.5-5.0 [facility]2019-08-28 05:32:00 Test Item Value Reference Range Interpretation Comments ALT (test code = ALT) 29 See_Comment [Auto mated message] The system which ge nerated this result transmit libia reference range : <=65. The reference range was not used to interpr et this result as brandan l/abnormal. [facility]2019-08-28 05:32:00 Test Item Value Reference Range Interpretation Comments AST (test code = AST) 30 See_Comment [Auto mated message] The system which ge nerated this result transmit libia reference range : <=37. The reference range was not used to interpr et this result as brandan l/abnormal. [facility]2019-08-28 05:32:00 Test Item Value Reference Range Interpretation Comments Alk Phos (test code = Alk Phos) 72 39-136 [facility]2019-08-28 05:32:00 Test Item Value Reference Range Interpretation Comments Bili Total (test code = Bili Total) 0.8 0.2-1.3 [facility]2019-08-28 05:32:00 Test Item Value Reference Range Interpretation Comments Bili Direct (test code 0.1 See_Comment [Aut omated message] The = Bili Direct) system which generated this result tra nsmitted reference range : <=0.3. The reference r myra was not used to int erpret this result as brandan l/abnormal. [facility]2019-08-28 05:32:00 Test Item Value Reference Range Interpretation Comments Bili Indirect (test 0.7 See_Comment [Automa libia message] The code = Bili Indirect) system which generated this result tra nsmitted reference range : <=1.0. The reference r myra was not used to int erpret this result as normal/abnormal . [facility]2019-08-28 05:32:00 Test Item Value Reference Range Interpretation Comments Globulin (test code = Globulin) 5.2 2.7-4.2 [facility]2019-08-28 05:32:00 Test Item Value Reference Range Interpretation Comments A/G Ratio (test code = A/G Ratio) 0.6 1 0.7-1.[address] [id number] 05:32:00 Test Item Value Reference Range Interpretation Comments PT (test code = PT) 13.8 s 12.0-14.[address] [facility] HospitalZlobwewUUDVKIRDFM5010-73-02 05:32:00 Test Item Value Reference Range Interpretation Comments PTT (test code = PTT) 27.3 s 22.9-35.[address] [facility] HospitalMpeszrjTPXTAEKVKY4006-00-95 05:32:00 Test Item Value Reference Range Interpretation Comments INR (test code = INR) 1.08 1 0.85-1.17 [facility]2019-08-28 01:47:00 Test Item Value Reference Range Interpretation Comments Magnesium Lvl (test code = Magnesium 2.0 1.8-2.4 Lvl) [facility]2019-08-28 01:47:00 Test Item Value Reference Range Interpretation Comments Total Protein (test code = Total 9.0 6.4-8.4 Protein) [facility]2019-08-28 01:47:00 Test Item Value Reference Range Interpretation Comments Albumin Lvl (test code = Albumin Lvl) 3.4 3.5-5.0 [facility]2019-08-28 01:47:00 Test Item Value Reference Range Interpretation Comments ALT (test code = ALT) 34 See_Comment [Auto mated message] The system which ge nerated this result transmit libia reference range : <=65. The reference range was not used to interpr et this result as brandan l/abnormal. [facility]2019-08-28 01:47:00 Test Item Value Reference Range Interpretation Comments AST (test code = AST) 50 See_Comment [Auto mated message] The system which ge nerated this result transmit libia reference range : <=37. The reference range was not used to interpr et this result as brandan l/abnormal. [facility]2019-08-28 01:47:00 Test Item Value Reference Range Interpretation Comments Alk Phos (test code = Alk Phos) 78 39-136 [facility]2019-08-28 01:47:00 Test Item Value Reference Range Interpretation Comments Bili Total (test code = Bili Total) 0.9 0.2-1.3 [facility]2019-08-28 01:47:00 Test Item Value Reference Range Interpretation Comments B/C Ratio (test code = B/C Ratio) 35 1 6-25 [facility]2019-08-28 01:47:00 Test Item Value Reference Range Interpretation Comments Globulin (test code = Globulin) 5.6 2.7-4.2 [facility]2019-08-28 01:47:00 Test Item Value Reference Range Interpretation Comments A/G Ratio (test code = A/G Ratio) 0.6 1 0.7-1.[address] [facility] H[id number] 01:47:00 Test Item Value Reference Range Interpretation Comments Segs (test code = Segs) 64.7 45.0-75.[address] [facility] HospitalJpsglocQRQZRDYMYT0248-25-08 01:47:00 Test Item Value Reference Range Interpretation Comments Lymphocytes (test code = Lymphocytes) 26.7 20.0-40.[address] [facility] HospitalOtpsowcRRXWNGXEAA6279-74-82 01:47:00 Test Item Value Reference Range Interpretation Comments Monocytes (test code = Monocytes) 7.6 2.0-12.[address] [facility] HospitalBnkywzwLLJWYIVTTW4478-27-50 01:47:00 Test Item Value Reference Range Interpretation Comments Eosinophils (test code = 0.3 See_Comment [A utomated message] The Eosinophils) system which ge nerated this result tra nsmitted reference range : <=4.0. The reference r myra was not used to int erpret this result as normal/abnormal . [facility] HospitalYrjpdurAWHRIQLPEL5394-53-44 01:47:00 Test Item Value Reference Range Interpretation Comments Basophils (test code = 0.7 See_Comment [Aut omated message] The Basophils) system which ge nerated this result tra nsmitted reference range : <=1.0. The reference r myra was not used to int erpret this result as normal/abnormal . [facility] Hospital[id number] 01:47:00 Test Item Value Reference Range Interpretation Comments Neutrophils # (test code = Neutrophils 5.0 1.5-8.1 #) [facility] HospitalLkhbhvsLIMYZMRBHB7127-16-73 01:47:00 Test Item Value Reference Range Interpretation Comments Lymphocytes # (test code = Lymphocytes 2.1 1.0-5.5 #) [facility] HospitalOdkyfbzIRBDORHVYH0823-60-31 01:47:00 Test Item Value Reference Range Interpretation Comments Monocytes # (test code 0.6 See_Comment [Aut omated message] The = Monocytes #) system which generated this result tra nsmitted reference range : <=0.8. The reference r myra was not used to int erpret this result as normal/abnormal . [facility] H[id number] 01:47:00 Test Item Value Reference Range Interpretation Comments Basophils # (test code 0.1 See_Comment [Aut omated message] The = Basophils #) system which generated this result tra nsmitted reference range : <=0.2. The reference r myra was not used to int erpret this result as normal/abnormal . [facility] HospitalUzdkponBVYLZUBTQV1098-61-51 01:47:00 Test Item Value Reference Range Interpretation Comments WBC (test code = WBC) 7.7 3.7-10.[address] [facility] HospitalAzmkcptBBNBDLLXSY0179-81-28 01:47:00 Test Item Value Reference Range Interpretation Comments RBC (test code = RBC) 5.58 4.20-5.[address] [facility] HospitalQozylhkSZNFPZCATK5173-22-04 01:47:00 Test Item Value Reference Range Interpretation Comments Hgb (test code = Hgb) 14.8 12.0-16.[address] [facility] HospitalWglgykfCPBNIDUMAZ5223-25-25 01:47:00 Test Item Value Reference Range Interpretation Comments Hct (test code = Hct) 44.9 36.0-48.[address] [facility] HospitalLazawzjKMCFNJVZDF2697-84-20 01:47:00 Test Item Value Reference Range Interpretation Comments MCV (test code = MCV) 80.5 80.0-98.[address] [facility] HospitalKsrcxkqGFICHYGGDU3444-78-47 01:47:00 Test Item Value Reference Range Interpretation Comments MCH (test code = MCH) 26.6 pg 27.0-31.[address] [facility] HospitalYyngkubZYQXWAHAKK0385-36-05 01:47:00 Test Item Value Reference Range Interpretation Comments MCHC (test code = MCHC) 33.0 32.0-36.[address] [facility] HospitalDobfdinAGNYAWUJEY3306-13-29 01:47:00 Test Item Value Reference Range Interpretation Comments RDW (test code = RDW) 14.1 11.5-14.[address] [facility] HospitalPrqythkQVRYMSTNNX6548-66-63 01:47:00 Test Item Value Reference Range Interpretation Comments Platelet (test code = Platelet) 303 041-[address] [facility] HospitalZvxizgmCOGVOYBEIR1286-43-30 01:47:00 Test Item Value Reference Range Interpretation Comments MPV (test code = MPV) 9.4 7.4-10.4 [facility]
--- NOTE | 2022-10-31 15:58 | RAD REPORT ---
EXAM DESCRIPTION: RAD - ENTEROSTOMY TUBE CHECK W/CONTR - 10/31/2022 2:54 pm CLINICAL HISTORY: PEG tube replacement COMPARISON: ENTEROSTOMY TUBE CHECK W/CONTR dated 01/20/2022 TECHNIQUE: Single AP views of the abdomen, before and after administration of barium contrast throu gh the tract to. FINDINGS: Surgical clips in the epigastric region. Injected contrast opacifies the distal stomach an d proximal duodenum. No evidence of extraluminal contrast. Nonobstructive bowel gas pattern. No air-fluid levels, free air, or pneumatosis. No suspicious calcif ications. No significant bony abnormality. IMPRESSION: No evidence of extraluminal contrast.
[2022-10-31 16:42] VITALS: BP 124/86; TEMP 98.9; O2SAT 98
--- NOTE | 2022-11-14 16:16 | ER ---
Nurse's Notes [facility] Name: Betty Cruz Age: 52 yrs Sex: Female : 1970 Arrival Date: 10/31/2022 Time: 13:54 Bed 24 Private MD: Salomón Pruett C Diagnosis: Encounter for attention to gastrostomy-with replacement Presentation: 10/31 13:59 Chief complaint: Spouse and/or significant other states: PEG tube fell out this afternoon, caregiver states that it was in place this morning when she administered morning medications. Spouse did bring tube. Ebola Screen: No symptoms or risks identified at this time. Risk Assessment: Do you want to hurt yourself or someone else? Patient reports no desire to harm self or others. Onset of symptoms was October 31, 2022. 13:59 Method Of Arrival: Wheelchair 14:24 Coronavirus screen: Vaccine status: Patient reports receiving the 2nd dose of the covid ph vaccine. Initial Sepsis Screen: Does the patient meet any 2 criteria? No. Patient's initial sepsis screen is negative. Does the patient have a suspected source of infection? No. Patient's initial sepsis screen is negative. 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/A - Post-menopause ph Historical: - Allergies: 14:27 No Known Allergies; ph - Home Meds: 14:28 Noelle 180 mg Oral tab 1 tab once daily [Active]; azithromycin 250 mg intravenous solr ph M-W-F [Active]; B Complex 100 0.4 mg Oral tab daily [Active]; beta carotene 25,000 unit Oral cap daily [Active]; ceftriaxone 2 gram intravenous solr once daily [Active]; Co Q-10 Oral daily [Active]; Curcumin 100 mg daily [Active]; CW Hemp Oil daily [Active]; Dexilant 30 mg Oral CpDB 1 cap once daily [Active]; diclofenac Oral as needed [Active]; escitalopram oxalate 20 mg Oral tab 1 tab once daily [Active]; gammunex as needed [Active]; glutathione daily [Active]; Inner Defense daily [Active]; melatonin 2.5 mg/10 mL oral liquid [Active]; resveratrol Oral daily [Active]; Tudca 250 mg twice a day [Active]; Vitamin B-12 5000 MCG Oral TbER daily [Active]; Vitamin C 100 mg Oral tab twice a day [Active]; Vitamin D3 5,000 unit Oral tab daily [Active]; vitamin E 1,000 unit Oral cap daily [Active]; Zinc Sulfate Oral 30 mg daily [Active]; - PMHx: 14: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 - Social history:: Smoking status: Patient denies any tobacco usage or history of. - Family history:: not pertinent. - Hospitalizations: : No recent hospitalization is reported. Screenin:27 [facility] ED Fall Risk Assessment (Adult) History of falling in the last 3 months, ph including since admission No falls in past 3 months (0 pts) Confusion or Disorientation No (0 pts) Intoxicated or Sedated No (0 pts) Impaired Gait Yes (1 pt) Mobility Assist Device Used Yes (1 pt) Altered Elimination No (0 pt) Score/Fall Risk Level 0 - 2 = Low Risk Oriented to surroundings, Maintained a safe environment, Hourly rounding (assess needs \T\ fall precautionary measures) done. Abuse screen: Denies threats or abuse. Denies injuries from another. Nutritional screening: No deficits noted. Tuberculosis screening: No symptoms or risk factors identified. Assessment: 14:20 General: Appears in no apparent distress. comfortable, well groomed, Behavior is calm, ph cooperative, appropriate for age. Pain: Denies pain. Neuro: Level of Consciousness is awake, alert, obeys commands, Oriented to person, place, time, situation. Derm: Skin is healthy with good turgor, Skin is pink, warm \T\ dry. 14:25 Reassessment: Dr Hardy at bedside to place new PEG, 20 Latvian w/ 20 cc balloon. ph Vital Signs: 14:24 BP 124 / 86; Pulse 72; Resp 18; Temp 98.9; Pulse Ox 98% on R/A; Weight 56.7 kg; Height ph 5 ft. 5 in. ; 14:24 Body Mass Index 20.80 (56.70 kg, 165.1 cm) ph ED Course: 13:54 Patient arrived in ED. mr 13:54 Salomón Pruett MD is Private Physician. mr 14:06 Octaviano Hardy MD is Attending Physician. rn 14:08 Arm band placed on. ph 14:24 Bren Williamson, RN is Primary Nurse. ph 14:25 Triage completed. ph 14:27 Arm band placed on Patient placed in an exam room. ph 14:28 Patient has correct armband on for positive identification. Call light in reach. Pulse ph ox on. NIBP on. Door closed. Noise minimized. 14:39 Dr Hardy's 20Fr 20cc peg tube. This RN pushed 20cc NS into balloon port. Split gauze ph placed and secured with microfoam tape. 14:55 PEG Tube Check w/contrast In Process Unspecified. EDMS 16:05 Patient did not have IV access during this emergency room visit. ph Administered Medications: No medications were administered Medication: 14:28 VIS not applicable for this client. ph Outcome: 15:53 Discharge ordered by . rn 16:05 Patient left the ED. aa5 16:05 Discharged to home via wheelchair, with family. ph 16:05 Condition: good 16:05 Discharge instructions given to patient, family, Instructed on discharge instructions, follow up and referral plans. Signatures: Dispatcher [employer] [facility] Sahara Vazquez mr Octaviano Hardy MD MD rn Calderon, Audri, RN RN aa5 Bren Williamson, [place] RN ph
--- NOTE | 2022-11-14 16:17 | EDPHYS ---
Physician Documentation [facility] Name: Betty Cruz Age: 52 yrs Sex: Female : 1970 Arrival Date: 10/31/2022 Time: 13:54 Bed 24 Private MD: Salomón Pruett C ED Physician Octaviano Hardy HPI: 10/31 14:55 This 52 yrs old Female presents to ER via Wheelchair with complaints of Peg Tube rn problem. 14:55 PEG tube fell out. Onset: The symptoms/episode began/occurred today. Severity of rn symptoms: At their worst the symptoms were mild in the emergency department the symptoms are unchanged. The patient has experienced a previous episode. The patient has not recently seen a physician. 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 ph Historical: - Allergies: 14:27 No Known Allergies; ph - Home Meds: 14:28 Noelle 180 mg Oral tab 1 tab once daily [Active]; azithromycin 250 mg intravenous solr ph -- [Active]; B Complex 100 0.4 mg Oral tab daily [Active]; beta carotene 25,000 unit Oral cap daily [Active]; ceftriaxone 2 gram intravenous solr once daily [Active]; Co Q-10 Oral daily [Active]; Curcumin 100 mg daily [Active]; CW Hemp Oil daily [Active]; Dexilant 30 mg Oral CpDB 1 cap once daily [Active]; diclofenac Oral as needed [Active]; escitalopram oxalate 20 mg Oral tab 1 tab once daily [Active]; gammunex as needed [Active]; glutathione daily [Active]; Inner Defense daily [Active]; melatonin 2.5 mg/10 mL oral liquid [Active]; resveratrol Oral daily [Active]; Tudca 250 mg twice a day [Active]; Vitamin B-12 5000 MCG Oral TbER daily [Active]; Vitamin C 100 mg Oral tab twice a day [Active]; Vitamin D3 5,000 unit Oral tab daily [Active]; vitamin E 1,000 unit Oral cap daily [Active]; Zinc Sulfate Oral 30 mg daily [Active]; - PMHx: 14:02 Babesia; Bortonella; CIDP; Ehrlichia; lymes disease; Neurologic disease; PICC Line; ph [place] Fever; WPW syndrome; - PSHx: 14:02 PEG tube; ph - Immunization history:: Adult Immunizations unknown. - Social history:: Smoking status: Patient denies any tobacco usage or history of. - Family history:: not pertinent. - Hospitalizations: : No recent hospitalization is reported. ROS: 14:55 Constitutional: Negative for fever, chills, and weight loss, Abdomen/GI: Negative for rn abdominal pain, nausea, vomiting, diarrhea, and constipation. Exam: 14:55 Constitutional: This is a well developed, well nourished patient who is awake, alert, rn and in no acute distress. Abdomen/GI: Stoma still open, small amount of blood from stoma with gastric contents leaking Vital Signs: 14:24 BP 124 / 86; Pulse 72; Resp 18; Temp 98.9; Pulse Ox 98% on R/A; Weight 56.7 kg; Height ph 5 ft. 5 in. ; 14:24 Body Mass Index 20.80 (56.70 kg, 165.1 cm) ph Procedures: 14:29 G-tube placement: a 20 Bulgarian catheter was placed, by the ED physician, Octaviano Hardy MD rn Tolerated well. MDM: 14:06 Patient medically screened. rn 14:55 Differential Diagnosis displaced PEG tube. . Data reviewed: vital signs, nurses notes, rn radiologic studies, plain films, and as a result, I will admit patient. 15:52 Independent interpretation of the following test(s) in the Emergency Department X-Ray: rn My interpretation is Xray to confirm PEG tube placement shows contrast in lumen of intestine, no sign of perforation per my interpretation. Counseling: I had a detailed discussion with the patient and/or guardian regarding: the historical points, exam findings, and any diagnostic results supporting the discharge/admit diagnosis, radiology results, the need for outpatient follow up, to return to the emergency department if symptoms worsen or persist or if there are any questions or concerns that arise at home. Response to treatment: the patient's symptoms have markedly improved after treatment, and as a result, I will discharge patient. Special discussion: I discussed with the patient/guardian in detail that at this point there is no indication for admission to the hospital. It is understood, however, that if the symptoms persist or worsen the patient needs to return immediately for re-evaluation. 10/31 14:29 Order name: PEG Tube Check w/contrast; Complete Time: 16:02 rn Administered Medications: No medications were administered Disposition Summary: 10/31/22 15:53 Discharge Ordered Location: Home rn Problem: new rn Symptoms: have improved rn Condition: Stable rn Diagnosis - Encounter for attention to gastrostomy - with replacement(10/31/22 15:53) rn Followup: rn - With: Private Physician - When: As needed - Reason: Recheck today's complaints, Re-evaluation by your physician Discharge Instructions: - Discharge Summary Sheet rn - Gastrostomy Tube Replacement rn - How to Clean a Tracheostomy Tube, Adult rn - Gastrostomy Tube Home Guide, Adult rn Forms: - Medication Reconciliation Form rn - Thank You Letter rn - Antibiotic e learning developer - Prescription Opioid Use rn Signatures: Dispatcher [employer] EDOctaviano Capps MD MD rn Hall, Patricia, RN RN ph Corrections: (The following items were deleted from the chart) 15:53 15:53 Encounter for attention to gastrostomy rn rn
== END 2022-10-31 16:05 | disposition home or self-care (01) ==
LOC: ER 13:52
DX: Z43.1 Encounter for attention to gastrostomy (principal)
CPT/HCPCS: 49465; 99283

== ENCOUNTER 2025-06-22 10:58 | Emergency (ER) | payer OTHER ==
--- NOTE | 2025-06-22 12:39 | RAD REPORT ---
EXAM:ENTEROSTOMY TUBE CHECK W/CONTR HISTORY: G-tube replacement; use gastrograffin COMPARISON: None FINDINGS/IMPRESSION: Examination is significantly limited due to patient positioning and technique. G astrografin contrast was injected by technologist into the G-tube. It is seen filling the stomach. No gross evidence of leakage. Lateral view is not submitted, limiting assessment.
--- NOTE | 2025-06-22 12:42 | EDPHYS ---
Physician Documentation [facility] Name: Betty Cruz Age: 55 yrs Sex: Female : 1970 Arrival Date: 06/22/2025 Time: 10:58 Bed 6 Private MD: ED Physician Nayeli Garduno HPI: 06/22 11:42 This 55 yrs old Female presents to ER via Wheelchair with complaints of tube sp3 replacement. 11:42 55-year-old female with history of neurological disease, PICC line, WPW, chronic G-tube sp3 presents to the ED for recurrent G-tube dislodgment. Dislodgment occurred just prior to arrival earlier today. No complications other than that. ROS, history and physical limited secondary to neurological disease. Family reports no other issues.. Historical: - Allergies: 11:18 No Known Allergies; bp - PMHx: 11:18 Babesia; [place] Fever; PICC Line; Neurologic disease; WPW syndrome; lymes bp disease; Ehrlichia; Bortonella; CIDP; - PSHx: 11:18 PEG tube; bp - Immunization history:: Adult Immunizations up to date. - Infectious Disease History:: Denies. - Social history:: Smoking status: Patient denies any tobacco usage or history of. ROS: 11:42 Unable to obtain ROS due to patient's inability to understand questions, sp3 Exam: 11:43 Abdomen/GI: Soft abdomen with tract still intact. G-tube replaced 25 Brazilian and sp3 patient will be discharged home after x-ray verification with Gastrografin., 11:43 Unable to obtain exam due to patient's inability to understand questions, Vital Signs: 11:17 BP 109 / 71; Pulse 89; Resp 16; Temp 98.1; Pulse Ox 97% ; bp 12:47 BP 111 / 75; Pulse 91; Resp 16; Temp 98.3; Pulse Ox 97% ; bp MDM: 11:13 Medical Screening Exam initiated sp3 11:43 Data reviewed: radiologic studies. ED course: G-tube replacement 25 Brazilian x-ray sp3 pending. Once x-ray verified, we will safely discharge patient home.. 06/22 11:27 Order name: ENTEROSTOMY TUBE CHECK W/CONTR; Complete Time: 12:41 EDMS Administered Medications: No medications were administered Disposition Summary: 06/22/25 12:42 Discharge Ordered Notes: Location: Home sp3 Condition: Stable sp3 Diagnosis - Gastric tube replacement sp3 Followup: sp3 - With: Private Physician - When: Upon discharge from the Emergency Department - Reason: Continuance of care Discharge Instructions: - Discharge Summary Sheet sp3 - How to Care for a Feeding Tube sp3 Forms: - Medication Reconciliation Form sp3 - Antibiotic Education sp3 - Prescription Opioid Use sp3 - Patient Portal Instructions sp3 - Leadership Thank You Letter sp3 Signatures: Dispatcher [employer] Joselito Urrutia, RN RN Nayeli Heaton MD MD sp3 Corrections: (The following items were deleted from the chart) 11:25 11:23 Abdomen 1 View+RAD.[email or web address].[email or web address] ordered. [facility]
--- NOTE | 2025-06-22 12:42 | ER ---
Nurse's Notes [facility] Name: Betty Cruz Age: 55 yrs Sex: Female : 1970 Arrival Date: 06/22/2025 Time: 10:58 Bed 6 Private MD: Diagnosis: Gastric tube replacement Presentation: 06/22 11:16 Chief complaint: Patient's son or daughter states: PEG TUBE CLOGGED Y/D. REPLACED IN bp FEBRUARY FOR SAME. Coronavirus screen: At this time, the client does not indicate any symptoms associated with coronavirus-19. Ebola Screen: No symptoms or risks identified at this time. Initial Sepsis Screen: Does the patient meet any 2 criteria? No. Patient's initial sepsis screen is negative. Does the patient have a suspected source of infection? No. Patient's initial sepsis screen is negative. Risk Assessment: Do you want to hurt yourself or someone else? Patient reports no desire to harm self or others. Onset of symptoms is unknown. 11:16 Method Of Arrival: Wheelchair bp 11:16 Acuity: TORY 4 bp Triage Assessment: 11:18 General: Appears in no apparent distress. Behavior is appropriate for age. Pain: Denies bp pain. EENT: No deficits noted. Neuro: No deficits noted. Cardiovascular: No deficits noted. Respiratory: No deficits noted. GI: PEG tube. : No signs and/or symptoms were reported regarding the genitourinary system. Derm: No deficits noted. Musculoskeletal: No deficits noted. Historical: - Allergies: 11:18 No Known Allergies; bp - PMHx: 11:18 Babesia; [place] Fever; PICC Line; Neurologic disease; WPW syndrome; lymes bp disease; Ehrlichia; Bortonella; CIDP; - PSHx: 11:18 PEG tube; bp - Immunization history:: Adult Immunizations up to date. - Infectious Disease History:: Denies. - Social history:: Smoking status: Patient denies any tobacco usage or history of. Screenin:47 [facility] ED Fall Risk Assessment (Adult) History of falling in the last 3 months, bp including since admission No falls in past 3 months (0 pts) Confusion or Disorientation No (0 pts) Intoxicated or Sedated No (0 pts) Impaired Gait Yes (1 pt) Mobility Assist Device Used Yes (1 pt) Altered Elimination No (0 pt) Score/Fall Risk Level 0 - 2 = Low Risk Oriented to surroundings. Abuse screen: Denies threats or abuse. Denies injuries from another. Nutritional screening: No deficits noted. Tuberculosis screening: No symptoms or risk factors identified. Assessment: 11:17 General: SEE TRIAGE NOTE. bp 12:47 Reassessment: Patient states symptoms have improved. bp Vital Signs: 11:17 BP 109 / 71; Pulse 89; Resp 16; Temp 98.1; Pulse Ox 97% ; bp 12:47 BP 111 / 75; Pulse 91; Resp 16; Temp 98.3; Pulse Ox 97% ; bp ED Course: 11:01 Patient arrived in ED. al6 11:02 Nayeli Garduno MD is Attending Physician. sp3 11:08 Joselito Bourne, RN is Primary Nurse. bp 11:17 Triage completed. bp 11:18 Arm band placed on. bp 12:33 ENTEROSTOMY TUBE CHECK W/CONTR In Process Unspecified. EDMS 12:47 Patient has correct armband on for positive identification. bp 12:47 No provider procedures requiring assistance completed. Patient did not have IV access bp during this emergency room visit. Administered Medications: No medications were administered Medication: 12:47 VIS not applicable for this client. bp Outcome: 12:42 Discharge ordered by . sp3 12:47 Discharged to home via wheelchair, with family, bp 12:47 Condition: stable 12:47 Discharge instructions given to patient, family, Instructed on discharge instructions, follow up and referral plans. Demonstrated understanding of instructions, follow-up care, 12:49 Patient left the ED. bp Signatures: Dispatcher [employer] EDMN Joselito Bourne, RN RN bp Nayeli Garduno MD MD sp3 Mariya Stephenson al6
[2025-06-22 12:53] VITALS: O2SAT 97
[2025-06-22 12:54] VITALS: BP 111/75; TEMP 98.3
== END 2025-06-22 12:49 | disposition home or self-care (01) ==
LOC: ER 10:58
PROC: 0D20XUZ Change Feeding Device in Upper Intestinal Tract, External Approach (ICD-10-PCS; principal; 2025-06-22)
DX: Z43.1 Encounter for attention to gastrostomy (principal)
CPT/HCPCS: 49465; 99283